=== PATIENT | male | born 1945 | race Caucasian/White ===

== ENCOUNTER 2023-11-28 21:21 | Observation (INO) | payer MEDICARE, BC, SELFPAY ==
[2023-11-28 21:22] VITALS: BP 130/73; PULSE 84; RESP 18; TEMP 36.7; O2SAT 97; BMI 32.4
--- NOTE | 2023-11-28 21:42 | CT_ITS ---
PROCEDURE INFORMATION: Exam: CT Abdomen And Pelvis With Contrast Exam date and time: 11/28/2023 10:33 PM Age: 78 years old Clinical indication: Abdominal pain; Additional info: Cystectomy, ruq/epigastrci abdominal pain TECHNIQUE: Imaging protocol: Computed tomography of the abdomen and pelvis with contrast. Radiation optimization: All CT scans at this facility use at least one of these dose optimization techniques: automated exposure control; mA and/or kV adjustment per patient size (includes targeted exams where dose is matched to clinical indication); or iterative reconstruction. Contrast material: ISOVUE; Contrast volume: 75 ml; Contrast route: IV; COMPARISON: No relevant prior studies available. FINDINGS: Liver: Mild fatty liver infiltration. Gallbladder and bile ducts: Multiple gallstones. Pancreas: Normal. No ductal dilation. Spleen: Normal. No splenomegaly. Adrenal glands: Normal. No mass. Kidneys and ureters: Loops bilateral nonobstructive renal calculi measuring up to 0.4 cm in left kidney. Bilateral renal cysts. Stomach and bowel: Sigmoid colonic diverticula without pericolonic fat stranding. Appendix: No evidence of appendicitis. Intraperitoneal space: Unremarkable. No free air. No significant fluid collection. Vasculature: Unremarkable. No abdominal aortic aneurysm. Lymph nodes: Unremarkable. No enlarged lymph nodes. Urinary bladder: Status post cystectomy with ileal conduit and right lower quadrant ostomy. Physiologic type bilateral hydroureter consistent with surgery. Reproductive: Unremarkable as visualized. Bones/joints: Unremarkable. No acute fracture. Soft tissues: Unremarkable. IMPRESSION: 1. Postsurgical changes status post cystectomy with ileal conduit. 2. Nonobstructive renal calculi. 3. Cholelithiasis. 4. Fatty liver infiltration. 5. Colonic diverticulosis. COMMENTS: Consistent with the [employer]'s Incidental Findings Committee white paper (J Am Charlene Radiol 2018): Any incidental renal lesion less than 1 cm or classified as too small to characterize, or any incidental cystic renal lesion characterized as simple-appearing, is likely benign. No follow-up imaging is recommended for these lesions per consensus recommendations based on imaging criteria.
[2023-11-28 21:46] LABS: Basophils % 0.1 % (0.1-2.0); Eosinophils # 0.1 K/mm3 (0.0-0.4); Eosinophils % 0.3 % (0.1-12.0); Hematocrit 36.4 % (42.0-52.0); Hemoglobin 13.1 g/dL (14.1-18.0); Lymphocytes # 0.8 K/mm3 (0.7-4.5); Lymphocytes % 3.2 % (10-50); Mean Corpuscular Hemoglobin 27.3 pg (27.0-31.2); Mean Corpuscular Volume 75.6 fl (80-94); Mean Platelet Volume 8.5 fl (7.4-10.4); Monocytes % 4.4 % (1.7-9.3); Neutrophils # 21.2 K/mm3 (1.8-7.8); Platelet Count 387 K/mm3 (142-424); Red Blood Count 4.81 M/mm3 (4.60-6.20); Red Cell Distribution Width 15.9 % (11.5-17.5); White Blood Count 23.1 K/mm3 (4.8-10.8)
[2023-11-28 21:48] LABS: MANUAL DIFFERENTIAL MANUAL DIFFERENTIAL (MANUAL DIFF)
[2023-11-28 21:54] LABS: Alanine Aminotransferase 40 U/L (12-78); Albumin/Globulin Ratio 1.3 (1.1-1.8); Alkaline Phosphatase 156 U/L (38-126); Anion Gap 19.2 mEq/L (5-15); Aspartate Amino Transferase 29 U/L (17-59); Bilirubin,Total 1.8 mg/dl (0.2-1.3); Blood Urea Nitrogen 31 mg/dl (9-20); Calcium 9.1 mg/dl (8.4-10.2); Carbon Dioxide 14 mmol/L (22.0-30.0); Chloride 107 mmol/L (98-107); Creatinine Clearance Estimated 44 mL/min (50-200); Estimated Glomerular Filt Rate 29 ml/min (>60); GFR (African American) 35 ML/MIN (>60); Globulin 3.1 g/dL (1.3-3.2); Glucose 173 mg/dl (74-100); Potassium 5.2 mmoL/L (3.5-5.1); Sodium 135 mmol/L (136-145); Total Protein,Serum 7.1 g/dl (6.3-8.2)
[2023-11-28 21:58] LABS: Hypochromasia 1+; Lymphocytes % 3 % (10-50); Microcytosis 1+; Monocytes % 4 % (2-9); Neutrophils % 93 % (42-76); Platelet Estimate Normal; Total Cells Counted 100
--- NOTE | 2023-11-28 22:07 | HMH.EDGENADL ---
Discharge Plan Disposition Patient Disposition: Admitted Referrals Follow up/Referrals: Marquita Gutierrez APRN [Primary Care Provider] - See instructions Clinical Impressions Clinical Impression: Abdominal pain Qualifiers: Abdominal location: generalized Qualified Code(s): R10.84 - Generalized abdominal pain Instructions Patient Instructions: DI for Acute Abdominal Pain Discharge ED Provider: Chirag Galan General Adult HPI <Chirag Galan MD - Last Filed: 11/28/23 23:34> General Chief complaint: Abdominal Pain Stated complaint: bladder surgery 05/28 back and abd pain Time Seen by Provider: 11/28/23 21:23 Mode of Arrival: Wheelchair Source of Information: Patient and Spouse Limitations: No Limitations Description of Symptoms (Recalled from ER Triage Doc. by RN): Pt presents with left lower abdominal pain that radiates into his lower back which started yesterday. Pt has hx of urostomy, has had adequate output. States he has hx of kidney stones and has episodes of diarrhea/constipation. History of Present Illness HPI narrative: Patient is 78 years old has a recent history of a cystectomy status post urostomy placement presenting with abdominal pain. Patient states that he has been feeling unwell for the past few days, but really started having right upper quadrant pain yesterday that radiates downward into his pelvis and backward into his back. Denies fevers or chills, nausea or vomiting, persistent diarrhea or constipation. Last bowel movement was yesterday and was mostly liquid, but patient is passing gas. Related Data Allergies Allergy/AdvReac Type Severity Reaction Status Date / Time No Known Allergies Allergy Verified 11/28/23 22:20 PFSH <Chirag Galan MD - Last Filed: 11/28/23 23:34> [facility] Disclaimer: The information contained in this section may have been updated after the patient was seen, as this information can be updated by other users. Social History (Updated 11/28/23 @ 22:55 by Chriag Galan MD) Smoking Status: Former smoker alcohol intake: never current occupational status: unemployed and retired Travel in the last 8 weeks: None <Chirag Galan MD - Last Filed: 11/28/23 23:34> ROS Obtained: Yes All systems reviewed & no additional complaints except as documented Physical Exam <Chirag Galan MD - Last Filed: 01/23/24 23:34> General General appearance: alert and in no apparent distress Head Head exam: atraumatic and normocephalic Eye Eye exam: Present normal appearance, PERRL and EOMI ENT ENT exam: Present mucous membranes moist Neck Neck exam: Present normal inspection, full ROM and trachea midline Respiratory Respiratory exam: Present normal lung sounds bilaterally; Absent respiratory distress, wheezes, stridor, accessory muscle use or prolonged expiratory phase Cardiovascular Cardiovascular exam: Present regular rate and normal rhythm Abdominal Exam Abdominal exam: Present soft and tenderness; Absent distention, guarding, rebound or rigidity Abdominal tenderness: Present RUQ and epigastrium Comment: Urostomy in place on the right side of the abdomen. [place], well-appearing. Extremities Exam Extremities exam: Absent edema Neurological Exam Neurological exam: Present alert, oriented X3, CN II-XII intact and normal gait; Absent motor sensory deficit Skin Skin exam: Present warm and dry; Absent diaphoresis or erythema Medical Decision Making <Chirag Galan MD - Last Filed: 11/28/23 23:34> Medical Records Medical records reviewed: Yes I reviewed the patient's medical records. Andres Inquiry Pt receiving controlled substance: No Andres was queried for this patient: No Vital Signs: 11/28/23 21:22 Temperature 98.1 F Temperature Source Oral Pulse Rate [Left] 84 Respiratory Rate 18 Blood Pressure [Right Arm] 130/73 Blood Pressure Mean [Right Arm] 92 Blood Pressure Source [Right Arm] Automatic Cuff Blood Pressure Position [Right Arm] Sitting 02 Sat by Pulse Oximetry 97 Oxygen Delivery Method Room Air Lab Data Lab Results 11/28/23 21:35: WBC 23.1 H*, RBC 4.81, Hgb 13.1 L, Hct 36.4 L, MCV 75.6 L, MCH 27.3, MCHC 36.0 H, RDW 15.9, Plt Count 387, MPV 8.5, Neut % (Auto) 92.0 H, Lymph % (Auto) 3.2 L, [place] % (Auto) 4.4, Eos % (Auto) 0.3, Baso % (Auto) 0.1, Neut # (Auto) 21.2 H, Lymph # (Auto) 0.8, [place] # (Auto) 1.0, Eos # (Auto) 0.1, Baso # (Auto) 0.0, Total Counted 100, Neutrophils % (Manual) 93 H, Lymphocytes % (Manual) 3 L, Monocytes % (Manual) 4, Platelet Estimate Normal, Hypochromasia 1+, Microcytosis 1+, Sodium 135 L, Potassium 5.2 H, Chloride 107, Carbon Dioxide 14 L, Anion Gap 19.2 H, BUN 31 H, Creatinine 2.20 H, Estimated Creat Clear 44, Estimated GFR 29 L, Est GFR ( Amer) 35 L, Glucose 173 H, Lactate 2.4 H, Calcium 9.1, Total Bilirubin 1.8 H, AST 29, ALT 40, Alkaline Phosphatase 156 H, Total Protein 7.1, Albumin 4.0, Globulin 3.1, Albumin/Globulin Ratio 1.3, Lipase 85 11/28/23 21:35 11/28/23 21:35 Orders (Tests/Meds): ED MEDICATIONS Generic Name Dose Route Start Last Admin Trade Name Freq PRN Reason Stop Dose Admin Acetaminophen 650 mg 11/29/23 00:05 Acetaminophen 325mg Tab PO 12/29/23 00:04 Q4HP PRN Fever or Mild Pain (1-3) Al Hydrox/Mg Hydrox/Simethicone 30 ml 11/29/23 00:05 Aluminum/Magnesium/Simethicone 30ml Udc PO 12/29/23 00:04 QIDP PRN Dyspepsia Enoxaparin Sodium 40 mg 11/29/23 09:00 Enoxaparin 40mg/0.4ml Syringe SQ 12/29/23 08:59 DAILY [facility] Vancomycin HCl 2,250 mg/ 250 mls @ 125 mls/hr 11/28/23 22:45 11/28/23 23:22 Sodium Chloride IV 11/29/23 00:44 125 mls/hr ONCE ONE Administration Sodium Chloride 1,000 mls @ 100 mls/hr 11/29/23 00:15 Sod Chlor 0.9% 1000ml Bag IV 12/29/23 00:14 .Q10H OLU Ceftriaxone Sodium 1 gm/ 50 mls @ 100 mls/hr 11/29/23 00:15 Sodium Chloride IV 12/09/23 00:14 Q12H [facility] Insulin Human Lispro 0 unit 11/29/23 06:00 Humalog 100 Units/Ml 3ml Vial (Ssi) SQ 12/29/23 05:59 ACHS OLU Protocol Ketorolac Tromethamine 30 mg 11/29/23 00:05 Ketorolac 30mg/Ml Vial IV 12/04/23 00:04 Q6HP PRN Moderate Pain (4-6) Miscellaneous 1 each 11/28/23 22:30 Vancomycin Consult Request NOTAPPLIC 12/28/23 22:29 CONSULT PHARMACY [facility] Morphine Sulfate 2 mg 11/29/23 00:05 Morphine 2mg/Ml Syringe IV 12/29/23 00:04 Q2HP PRN Severe Pain (7-10) Ondansetron HCl 4 mg 11/29/23 00:05 Ondansetron 4mg/2ml Vial IV 12/29/23 00:04 Q8HP PRN Nausea Pantoprazole Sodium 40 mg 11/29/23 09:00 Pantoprazole 40mg Tablet PO 12/29/23 08:59 DAILY [facility] Sodium Chloride 10 ml 11/28/23 22:41 11/28/23 22:42 Sodium Chloride 0.9% 10ml Syr (Rad Only) IV 12/28/23 22:40 10 ml NEEDED PRN Administration Maintain IV Site Discontinued Medications Generic Name Dose Route Start Last Admin Trade Name Freq PRN Reason Stop Dose Admin Lactated Ringer's 1,000 mls @ 999 mls/hr 11/28/23 22:00 11/28/23 22:26 Lactated Ringer's 1000 Ml Bag IV 11/28/23 23:00 999 mls/hr .Q1H1M ONE Administration Ampicillin Sodium/Sulbactam 100 mls @ 200 mls/hr 11/28/23 22:10 11/28/23 22:57 Sodium 3 gm/ Sodium Chloride IV 11/28/23 22:11 200 mls/hr ONCE ONE Administration Lactated Ringer's 1,000 mls @ 999 mls/hr 11/28/23 22:13 Lactated Ringer's 1000 Ml Bag IV 11/28/23 23:13 .Q1H1M ONE Iopamidol 75 ml 11/28/23 22:41 11/28/23 22:42 Iopamidol-370 (76%);100ml Bottle IV 11/28/23 22:42 75 ml ONCE ONE Administration ORDERS Category Date Time Status CT abdomen pelvis w con Stat Cat Scan 11/28/23 21:42 Completed CBC w/Auto Diff [Complete Blood Count Auto Diff] Stat Lab 11/28/23 21:35 Completed CMP [Comprehensive Metabolic Panel] Stat Lab 11/28/23 21:35 Completed Complete Blood Count Auto Diff AMLAB Lab 11/29/23 06:00 Ordered Comprehensive Metabolic Panel AMLAB Lab 11/29/23 06:00 Ordered Lactic Acid Stat Lab 11/28/23 21:35 Completed Lipase Stat Lab 11/28/23 21:35 Completed Magnesium AMLAB Lab 11/29/23 06:00 Ordered Blood Culture Stat Micro 11/28/23 22:49 Received Medical Decision Narrative: Patient is 78 years old has a recent history of a cystectomy status post urostomy placement presenting with abdominal pain. Patient states that he has been feeling unwell for the past few days, but really started having right upper quadrant pain yesterday that radiates downward into his pelvis and backward into his back. Denies fevers or chills, nausea or vomiting, persistent diarrhea or constipation. Last bowel movement was yesterday and was mostly liquid, but patient is passing gas. History was obtained via conversation with patient and . On arrival, patient hemodynamically stable, alert, oriented x4, appropriate, GCS 15, moving all extremities spontaneously, pupils equal and reactive to light. Full physical exam performed and significant for well-appearing male no acute distress. Patient does have tender abdomen right upper quadrant, but no evidence of peritonitis. Urostomy in place with bag overlying. Urostomy appears pink, well matured. No flank tenderness. Differential includes pyelonephritis, small bowel obstruction, cholecystitis, appendicitis, intra-abdominal abscess, urostomy failure, anastomosis leak, among others. Patient was given lactated Ringer's, Unasyn for symptomatic management and correction of underlying abnormalities. Workup independently interpreted and significant for leukocytosis 23,000 with neutrophilic shift. CBC with mild hypokalemia 5.2, anion gap 19.2 with RUDI BUN 31 creatinine 2.2. Patient's lactate 2.4. Patient appears to have atrophic kidneys and bilateral utero hydronephrosis without stents in place. No evidence of perforation or bowel obstruction. See radiology read for full review of final results. Blood cultures drawn. GFR 29, he was given fluids prior to CT scan. CT scan with nonacute findings. Cholelithiasis without signs of cholecystitis, well-appearing urostomy. Hospital medicine contacted for admission, patient to be admitted. Patient may be having symptomatic cholelithiasis, which is resolved versus cholecystitis versus pyelonephritis. Because patient high risk for clinical decompensation, deemed appropriate for inpatient admission. Results were relayed to patient who voiced understanding and patient was agreeable to inpatient admission and management. Patient was admitted to the hospital for further definitive management. <Grover Terry MD - Last Filed: 11/29/23 00:23> Vital Signs: 11/28/23 21:22 Temperature 98.1 F Temperature Source Oral Pulse Rate [Left] 84 Respiratory Rate 18 Blood Pressure [Right Arm] 130/73 Blood Pressure Mean [Right Arm] 92 Blood Pressure Source [Right Arm] Automatic Cuff Blood Pressure Position [Right Arm] Sitting 02 Sat by Pulse Oximetry 97 Oxygen Delivery Method Room Air Lab Data Lab Results 11/28/23 21:35: WBC 23.1 H*, RBC 4.81, Hgb 13.1 L, Hct 36.4 L, MCV 75.6 L, MCH 27.3, MCHC 36.0 H, RDW 15.9, Plt Count 387, MPV 8.5, Neut % (Auto) 92.0 H, Lymph % (Auto) 3.2 L, [place] % (Auto) 4.4, Eos % (Auto) 0.3, Baso % (Auto) 0.1, Neut # (Auto) 21.2 H, Lymph # (Auto) 0.8, [place] # (Auto) 1.0, Eos # (Auto) 0.1, Baso # (Auto) 0.0, Total Counted 100, Neutrophils % (Manual) 93 H, Lymphocytes % (Manual) 3 L, Monocytes % (Manual) 4, Platelet Estimate Normal, Hypochromasia 1+, Microcytosis 1+, Sodium 135 L, Potassium 5.2 H, Chloride 107, Carbon Dioxide 14 L, Anion Gap 19.2 H, BUN 31 H, Creatinine 2.20 H, Estimated Creat Clear 44, Estimated GFR 29 L, Est GFR ( Amer) 35 L, Glucose 173 H, Lactate 2.4 H, Calcium 9.1, Total Bilirubin 1.8 H, AST 29, ALT 40, Alkaline Phosphatase 156 H, Total Protein 7.1, Albumin 4.0, Globulin 3.1, Albumin/Globulin Ratio 1.3, Lipase 85 Orders (Tests/Meds): ED MEDICATIONS Generic Name Dose Route Start Last Admin Trade Name Freq PRN Reason Stop Dose Admin Acetaminophen 650 mg 11/29/23 00:05 Acetaminophen 325mg Tab PO 12/29/23 00:04 Q4HP PRN Fever or Mild Pain (1-3) Al Hydrox/Mg Hydrox/Simethicone 30 ml 11/29/23 00:05 Aluminum/Magnesium/Simethicone 30ml Udc PO 12/29/23 00:04 QIDP PRN Dyspepsia Enoxaparin Sodium 40 mg 11/29/23 09:00 Enoxaparin 40mg/0.4ml Syringe SQ 12/29/23 08:59 DAILY [facility] Vancomycin HCl 2,250 mg/ 250 mls @ 125 mls/hr 11/28/23 22:45 11/28/23 23:22 Sodium Chloride IV 11/29/23 00:44 125 mls/hr ONCE ONE Administration Sodium Chloride 1,000 mls @ 100 mls/hr 11/29/23 00:15 Sod Chlor 0.9% 1000ml Bag IV 12/29/23 00:14 .Q10H [facility] Ceftriaxone Sodium 1 gm/ 50 mls @ 100 mls/hr 11/29/23 00:15 Sodium Chloride IV 12/09/23 00:14 Q12H [facility] Insulin Human Lispro 0 unit 11/29/23 06:00 Humalog 100 Units/Ml 3ml Vial (Ssi) SQ 12/29/23 05:59 ACHS [facility] Protocol Ketorolac Tromethamine 30 mg 11/29/23 00:05 Ketorolac 30mg/Ml Vial IV 12/04/23 00:04 Q6HP PRN Moderate Pain (4-6) Miscellaneous 1 each 11/28/23 22:30 Vancomycin Consult Request NOTAPPLIC 12/28/23 22:29 CONSULT PHARMACY [facility] Morphine Sulfate 2 mg 11/29/23 00:05 Morphine 2mg/Ml Syringe IV 12/29/23 00:04 Q2HP PRN Severe Pain (7-10) Ondansetron HCl 4 mg 11/29/23 00:05 Ondansetron 4mg/2ml Vial IV 12/29/23 00:04 Q8HP PRN Nausea Pantoprazole Sodium 40 mg 11/29/23 09:00 Pantoprazole 40mg Tablet PO 12/29/23 08:59 DAILY [facility] Sodium Chloride 10 ml 11/28/23 22:41 11/28/23 22:42 Sodium Chloride 0.9% 10ml Syr (Rad Only) IV 12/28/23 22:40 10 ml NEEDED PRN Administration Maintain IV Site Discontinued Medications Generic Name Dose Route Start Last Admin Trade Name Juaquin PRN Reason Stop Dose Admin Lactated Ringer's 1,000 mls @ 999 mls/hr 11/28/23 22:00 11/28/23 22:26 Lactated Ringer's 1000 Ml Bag IV 11/28/23 23:00 999 mls/hr .Q1H1M ONE Administration Ampicillin Sodium/Sulbactam 100 mls @ 200 mls/hr 11/28/23 22:10 11/28/23 22:57 Sodium 3 gm/ Sodium Chloride IV 11/28/23 22:11 200 mls/hr ONCE ONE Administration Lactated Ringer's 1,000 mls @ 999 mls/hr 11/28/23 22:13 Lactated Ringer's 1000 Ml Bag IV 11/28/23 23:13 .Q1H1M ONE Iopamidol 75 ml 11/28/23 22:41 11/28/23 22:42 Iopamidol-370 (76%);100ml Bottle IV 11/28/23 22:42 75 ml ONCE ONE Administration ORDERS Category Date Time Status CT abdomen pelvis w con Stat Cat Scan 11/28/23 21:42 Completed CBC w/Auto Diff [Complete Blood Count Auto Diff] Stat Lab 11/28/23 21:35 Completed CMP [Comprehensive Metabolic Panel] Stat Lab 11/28/23 21:35 Completed Complete Blood Count Auto Diff AMLAB Lab 11/29/23 06:00 Ordered Comprehensive Metabolic Panel AMLAB Lab 11/29/23 06:00 Ordered Lactic Acid Stat Lab 11/28/23 21:35 Completed Lipase Stat Lab 11/28/23 21:35 Completed Magnesium AMLAB Lab 11/29/23 06:00 Ordered Blood Culture Stat Micro 11/28/23 22:49 Received Medical Decision Narrative: Patient is 78 years old has a recent history of a cystectomy status post urostomy placement presenting with abdominal pain. Patient states that he has been feeling unwell for the past few days, but really started having right upper quadrant pain yesterday that radiates downward into his pelvis and backward into his back. Denies fevers or chills, nausea or vomiting, persistent diarrhea or constipation. Last bowel movement was yesterday and was mostly liquid, but patient is passing gas. History was obtained via conversation with patient and . On arrival, patient hemodynamically stable, alert, oriented x4, appropriate, GCS 15, moving all extremities spontaneously, pupils equal and reactive to light. Full physical exam performed and significant for well-appearing male no acute distress. Patient does have tender abdomen right upper quadrant, but no evidence of peritonitis. Urostomy in place with bag overlying. Urostomy appears pink, well matured. No flank tenderness. Differential includes pyelonephritis, small bowel obstruction, cholecystitis, appendicitis, intra-abdominal abscess, urostomy failure, anastomosis leak, among others. Patient was given lactated Ringer's, Unasyn for symptomatic management and correction of underlying abnormalities. Workup independently interpreted and significant for leukocytosis 23,000 with neutrophilic shift. CBC with mild hypokalemia 5.2, anion gap 19.2 with RUDI BUN 31 creatinine 2.2. Patient's lactate 2.4. Patient appears to have atrophic kidneys and bilateral utero hydronephrosis without stents in place. No evidence of perforation or bowel obstruction. See radiology read for full review of final results. Blood cultures drawn. GFR 29, he was given fluids prior to CT scan. CT scan with nonacute findings. Cholelithiasis without signs of cholecystitis, well-appearing urostomy. Hospital medicine contacted for admission, patient to be admitted. Patient may be having symptomatic cholelithiasis, which is resolved versus cholecystitis versus pyelonephritis. Because patient high risk for clinical decompensation, deemed appropriate for inpatient admission. Results were relayed to patient who voiced understanding and patient was agreeable to inpatient admission and management. Patient was admitted to the hospital for further definitive management. Mara VENTURA: I assumed care of the patient at the time of handoff from the prior provider. Patient admitted to the hospitalist by primary provider. I was not significantly involved in the patient's care. Critical Care <Chirag Galan MD - Last Filed: 11/28/23 23:34> Critical Care Time Critical Care Time: No
[2023-11-28 22:08] LABS: Lactic Acid 2.4 mmol/L (0.7-2.1)
[2023-11-28 22:17] LABS: Lipase 85 U/L (23-300)
[2023-11-28] MEDS: LACTATED RINGERS 1000ML 1,000 ML 999 ML IV (22:26)
[2023-11-28] MEDS: IOPAMIDOL-370 (76%);100ML BOTTLE 75 ML IV (22:42)
[2023-11-28] MEDS: SODIUM CHLORIDE 0.9% 10ML SYR (RAD ONLY) 10 ML IV (22:42)
[2023-11-28] MEDS: AMPICILLIN/SULBACTAM 3 GM in 0.9 % SODIUM CHLORIDE 100 ML IV (22:57)
[2023-11-28] MEDS: VANCOMYCIN HCL 2,250 MG in 0.9 % SODIUM CHLORIDE 250 ML 125 MG IV (23:22)
[2023-11-29] VITALS (7 sets, daily range): BP systolic 100–136; BP diastolic 51–79; PULSE 64–88; RESP 16–18; TEMP 36.4–36.7; O2SAT 96–99; BMI 31.8
--- NOTE | 2023-11-29 00:07 | EXP.HP ---
History of Present Illness *Admission Date: 11/29/23 *Reason for visit:: abd pain *History of present illness: This is a 78 years old male with PMHx including but not limited to IDDM, Gout, HLD, GERD with recent history bladder cancer status post cystectomy with urostomy placement presenting with abdominal pain. Patient states that he has been feeling unwell for the past few days, but really started having right upper quadrant pain yesterday that radiates downward into his pelvis and backward into his back. History also confirmed with family at beside. Of note, patient also reported recent hospitalization due to history of yeast pyelonephritis with sepsis back on . Currently denies fevers or chills, nausea or vomiting, persistent diarrhea or constipation. Last bowel movement was yesterday and was mostly liquid, but patient is passing gas. Admitted for further treatment and management. [facility] Disclaimer: The information contained in this section may have been updated after the patient was seen, as this information can be updated by other users. Medical History (Updated 11/29/23 @ 02:21 by Keshia Poe RN) Bladder cancer Dementia Diabetes mellitus type 2, controlled Skin cancer Surgical History (Updated 11/29/23 @ 02:21 by Keshia Poe RN) History of urostomy Family History (Updated 11/29/23 @ 02:21 by Keshia Poe RN) Dementia Mother Father Social History (Updated 11/29/23 @ 01:50 by Keshia Poe RN) Smoking Status: Former smoker tobacco type: cigarettes packs per day: 1 years smoked: 30 smoking status stop date: 30 years ago alcohol intake: never current occupational status: unemployed and retired Travel in the last 8 weeks: None Review of Systems Review of Systems Review of systems:: pertinent systems reviewed and negative unless documented below Meds Home Medications and Allergies Home Medications Medication Instructions Recorded Confirmed Type allopurinol 100 mg tablet 100 mg PO DAILY 11/29/23 11/29/23 History atorvastatin 20 mg tablet 20 mg PO HS 11/29/23 11/29/23 History linaclotide 290 mcg capsule 290 mcg PO AM 11/29/23 11/29/23 History (Linzess) metformin 500 mg tablet 500 mg PO BIDWMEAL 11/29/23 11/29/23 History metoprolol succinate 50 mg 50 mg PO DAILY 11/29/23 11/29/23 History tablet,extended release 24 hr quetiapine 50 mg tablet 50 mg PO HS 11/29/23 11/29/23 History New Prescriptions to Start Prescriptions: Allergies Allergy/AdvReac Type Severity Reaction Status Date / Time No Known Allergies Allergy Verified 11/28/23 22:20 Exam Data for Last 24 hours Vital signs and Labs for Last 24 Hours: Temp Pulse Resp BP Pulse Ox O2 Del Method 98.1 F 84 18 130/73 97 Room Air 11/28/23 21:22 11/28/23 21:22 11/28/23 21:22 11/28/23 21:22 11/28/23 21:22 11/28/23 21:22 Laboratory Results - last 24 hr 11/28/23 21:35: WBC 23.1 H*, RBC 4.81, Hgb 13.1 L, Hct 36.4 L, MCV 75.6 L, MCH 27.3, MCHC 36.0 H, RDW 15.9, Plt Count 387, MPV 8.5, Neut % (Auto) 92.0 H, Lymph % (Auto) 3.2 L, [place] % (Auto) 4.4, Eos % (Auto) 0.3, Baso % (Auto) 0.1, Neut # (Auto) 21.2 H, Lymph # (Auto) 0.8, [place] # (Auto) 1.0, Eos # (Auto) 0.1, Baso # (Auto) 0.0, Total Counted 100, Neutrophils % (Manual) 93 H, Lymphocytes % (Manual) 3 L, Monocytes % (Manual) 4, Platelet Estimate Normal, Hypochromasia 1+, Microcytosis 1+, Sodium 135 L, Potassium 5.2 H, Chloride 107, Carbon Dioxide 14 L, Anion Gap 19.2 H, BUN 31 H, Creatinine 2.20 H, Estimated Creat Clear 44, Estimated GFR 29 L, Est GFR ( Amer) 35 L, Glucose 173 H, Lactate 2.4 H, Calcium 9.1, Total Bilirubin 1.8 H, AST 29, ALT 40, Alkaline Phosphatase 156 H, Total Protein 7.1, Albumin 4.0, Globulin 3.1, Albumin/Globulin Ratio 1.3, Lipase 85 I & O for Last 24 hours: Intake & Output 11/26/23 11/27/23 11/28/23 11/29/23 23:59 23:59 23:59 23:59 Weight 108.409 kg Constitutional Constitutional: no acute distress, obese and cooperative *Routine HEENT Exam Head: Present normocephalic and atraumatic Eye: Present EOMI, PERRL and normal accommodation ENT: Present mucous membranes moist *Routine Neck Exam Neck: Present supple, full ROM and trachea midline *Routine Respiratory Exam Respiratory: Present normal respiratory effort, able to speak in complete sentences and symmetric chest movement; Absent respiratory distress *Routine Cardiovascular Exam Cardiovascular: Present RRR, Normal S1 and Normal S2 *Routine Abdominal Exam Abdominal: Present soft, normoactive bowel sounds and ostomy; Absent organomegaly *Routine Rectal Exam Rectal:: deferred *Routine Genitalia Exam Genitalia:: deferred *Routine Extremities Exam Extremities: Present full ROM and pulses intact; Absent cyanosis, clubbing or edema *Routine Skin Exam Skin: Present dry and warm; Absent cyanosis *Routine Neurological Exam Neurological: Present alert, oriented X3, normal reflexes, moving all extremities and normal speech Routine Psychiatric Exam Psychiatric: Present normal thought process, cooperative and good judgment H&P: Result Imaging and Cardiology EKG: Status: image reviewed by me and Preliminary report CT scan - abdomen: Status: image reviewed by me, Preliminary report and final report Assessment and Plan *Assessment and plan (1) Abdominal pain: Status: Acute Qualifiers: Abdominal location: generalized Qualified Code(s): R10.84 - Generalized abdominal pain Category: Medical Code(s): R10.9 - Unspecified abdominal pain (2) Renal calculi: Status: Acute Category: Medical Code(s): N20.0 - Calculus of kidney (3) Suspected UTI: Status: Acute Category: Medical Code(s): R39.89 - Other symptoms and signs involving the genitourinary system (4) Hydronephrosis: Status: Acute Qualifiers: Hydronephrosis type: unspecified Qualified Code(s): N13.30 - Unspecified hydronephrosis Category: Medical Code(s): N13.30 - Unspecified hydronephrosis (5) CKD (chronic kidney disease): Status: Acute Qualifiers: Chronic kidney disease stage: unspecified stage Qualified Code(s): N18.9 - Chronic kidney disease, unspecified Category: Medical Code(s): N18.9 - Chronic kidney disease, unspecified (6) Cholelithiasis: Status: Acute Qualifiers: Biliary obstruction: without biliary obstruction Cholecystitis presence: without cholecystitis Cholelithiasis location: gallbladder Qualified Code(s): K80.20 - Calculus of gallbladder without cholecystitis without obstruction Category: Medical Code(s): K80.20 - Calculus of gallbladder without cholecystitis without obstruction (7) Diverticulosis: Status: Acute Category: Medical Code(s): K57.90 - Diverticulosis of intestine, part unspecified, without perforation or abscess without bleeding (8) Diabetes: Status: Acute Qualifiers: Diabetes mellitus complication status: with other specified complication Diabetes mellitus nursing home insulin use: with nursing home use Diabetes mellitus type: type 2 Qualified Code(s): E11.69 - Type 2 diabetes mellitus with other specified complication; Z79.4 - alf (current) use of insulin Category: Medical Code(s): E11.9 - Type 2 diabetes mellitus without complications (9) Hx of bladder cancer: Status: Acute Category: Medical Code(s): Z85.51 - Personal history of malignant neoplasm of bladder (10) H/O total cystectomy: Status: Acute Category: Surgical Code(s): Z90.6 - Acquired absence of other parts of urinary tract Plan 78 years old male with PMHx including but not limited to IDDM, Gout, HLD, GERD with recent history bladder cancer status post cystectomy with urostomy placement presenting with abdominal pain. Patient states that he has been feeling unwell for the past few days. On arrival patient presented non toxic, aymptomatic. Initial work up was significant for leukocytosis 23,000 with neutrophilic shift, mild hypokalemia 5.2, anion gap 19.2 with RUDI BUN 31 creatinine 2.2. Patient's lactate 2.4. Patient appears to have bilateral hydronephrosis. non obstructing stone. No evidence of perforation or bowel obstruction. Gallstone without obstruction. diffuse signs of diverticulosis without diverticulitis. Blood cultures drawn. Findings extensively discussed with ER provider for admission. Plan as follow: -Abdominal pain presented with mild leukocytosis and lactic acidosis: to rule out Pyelonephritis in the setting of renal calculi without obstruction Previous HX of yeast pyelonephritis with sepsis. Also: cholelithiasis without obstrution diverticulosis with out diverticulitis Admit patient for medical services. Dispo MedSurg Vanco one dose given at ER. Will continue to Zoxyn to broad cover BC pending UA ordered. Change urostomy bag Cont IV NS \ Repeat CBC and CMP in the morning. Monitor for WBC and Cr monitor for sepsis and organ failure CT of abd done. Reviewed. pain management. Ketorolac given at ER. Improved CKD: Previous Hx of hydronephrosis Creatinine 2.6. Unknown baseline. repeat CMP in the morning monitor renal output -IDDM: monitor BS before meal. Hold metformin Sliding scale -Hx of bladder cancer s/p cystectomy with ileal conduit. changes and palce ne urostomy bag. ostomy clean low concern of local infection may f/u outpatient urology Lovenox for DVT ppx. On Protonix Full code Rounded on patient after nurse practitioner. Personally examined and interviewed patient. Agree with exam findings and care plan as documented. White cell count improved to 12,000 by morning. Continuing antibiotics. Urine culture obtained. Will monitor for the next 24 to 48 hours while we await cultures to help de-escalate antibiotics. Transition from vancomycin and Zosyn to vancomycin and cefepime to decrease risk for kidney injury. Records obtained from [facility], cystectomy was performed in April of last year.
--- NOTE | 2023-11-29 00:19 | PC.NURSE ---
I called the banquet houseperson, SRodney RN, to request a bed for admission to the hospitalist.
--- OUTSIDE RECORDS SUMMARY | 2023-11-29 00:25 | XMS_ITS | Clinical Summary ---
Author Name Unknown Address [address] [place] [address] [employer] [address] [place] [id number] Phone Organization [facility] Address [address] [place] [address] [place] [id number] Phone Care Team Providers Care Record Keeper Name Role Phone Unavailable Unavailable Conditions or Problems No information available. Medications No information available. Medications Administered No information available. Allergies, Adverse Reactions, Alerts No information available. Results No information available. Plan of Care No information available. Procedures No information available. Vital Signs No information available. Immunizations No information available. Advance Directives No information available.
[2023-11-29] MEDS: LACTATED RINGERS 1000ML 1,000 ML 999 ML IV (01:38)
[2023-11-29 01:57] LABS: Reflex Lactic Add Lactic Reflex
[2023-11-29] MEDS: KETOROLAC 30MG/ML VIAL 30 MG IV (01:58)
--- NOTE | 2023-11-29 02:22 | PC.NURSE ---
Pt currently has 1 IV. Vancomycin finished at this time. Pt now receiving 2nd LR bolus. Zosyn past due. Pt is refusing to be stuck for 2nd IV. Neil West APRN made aware.
[2023-11-29] MEDS: PIPERACILLIN/TAZO 4.5 GM in 0.9 % SODIUM CHLORIDE 100 ML IV ×2 (03:18→09:04)
[2023-11-29] MEDS: 0.9 % SODIUM CHLORIDE 1000ML 1,000 ML 100 ML IV (03:18)
--- NOTE | 2023-11-29 03:23 | PC.NURSE ---
pt arrived to the floor at 01:26
[2023-11-29 06:36] LABS: POC Glucose,Bedside 139 (70-110)
[2023-11-29 07:45] LABS: Alanine Aminotransferase 29 U/L (12-78); Albumin Level 2.8 g/dl (3.5-5.0); Alkaline Phosphatase 109 U/L (38-126); Anion Gap 13.8 mEq/L (5-15); Aspartate Amino Transferase 20 U/L (17-59); Bilirubin,Total 1.1 mg/dl (0.2-1.3); Blood Urea Nitrogen 34 mg/dl (9-20); Carbon Dioxide 19 mmol/L (22.0-30.0); Chloride 107 mmol/L (98-107); Creatinine Clearance Estimated 41 mL/min (50-200); Estimated Glomerular Filt Rate 28 ml/min (>60); GFR (African American) 34 ML/MIN (>60); Globulin 2.8 g/dL (1.3-3.2); Glucose 130 mg/dl (74-100); Potassium 4.8 mmoL/L (3.5-5.1); Sodium 135 mmol/L (136-145); Total Protein,Serum 5.6 g/dl (6.3-8.2)
--- NOTE | 2023-11-29 08:01 | HMH.PHAINT1 ---
Pharmacy Intervention Comments: Home med list verified with patient at bedside and with external pharmacy list.
[2023-11-29 08:37] LABS: Eosinophils % 0.2 % (0.1-12.0); Monocytes # 0.6 K/mm3 (0.1-1.0); Red Cell Distribution Width 15.9 % (11.5-17.5)
[2023-11-29 08:41] LABS: Basophils % 0.2 % (0.1-2.0); Hematocrit 32.6 % (42.0-52.0); Lymphocytes # 0.9 K/mm3 (0.7-4.5); Lymphocytes % 6.9 % (10-50); Mean Corpuscular HGB Conc 34.8 g/dL (31.8-35.4); Mean Corpuscular Hemoglobin 26.2 pg (27.0-31.2); Mean Corpuscular Volume 75.3 fl (80-94); Mean Platelet Volume 8.6 fl (7.4-10.4); Monocytes % 4.5 % (1.7-9.3); Neutrophils % 88.2 % (37.0-80.0); Platelet Count 259 K/mm3 (142-424); Red Blood Count 4.33 M/mm3 (4.60-6.20); White Blood Count 12.4 K/mm3 (4.8-10.8)
[2023-11-29 08:43] LABS: Hemoglobin 11.3 g/dL (14.1-18.0)
[2023-11-29 08:44] LABS: MANUAL DIFFERENTIAL MANUAL DIFFERENTIAL (MANUAL DIFF)
--- NOTE | 2023-11-29 08:53 | PC.WOUNDNOTE ---
Patient sleeping soundly. 1:1 patient safety sitter at bedside. Will hold meds until patient is awake
[2023-11-29] MEDS: SENNOSIDES 8.6MG/DOCUSATE 50MG TABLET 1 TAB PO ×2 (09:03→21:05)
[2023-11-29] MEDS: PANTOPRAZOLE 40MG TABLET 40 MG PO (09:03)
[2023-11-29] MEDS: ENOXAPARIN 40MG/0.4ML SYRINGE 40 MG SQ (09:03)
[2023-11-29 09:55] LABS: Lymphocytes % 5 % (10-50); Monocytes % 9 % (2-9); Neutrophils % 76 % (42-76); Total Cells Counted 100
[2023-11-29 10:06] LABS: Platelet Estimate Normal
[2023-11-29 10:07] LABS: Anisocytosis 1+; Hypochromasia 1+; Poikilocytosis 1+
--- NOTE | 2023-11-29 10:30 | EXP.PHA.CONS ---
Pharmacy Consult Date: 11/29/23 Time: 10:30 Referring provider: DR. MALAVE Reason for Consult:: VANCOMYCIN DOSING CONSULT Allergies Allergy/AdvReac Type Severity Reaction Status Date / Time No Known Allergies Allergy Verified 11/28/23 22:20 Home Medications Medication Instructions Recorded Confirmed Type allopurinol 100 mg tablet 100 mg PO DAILY 11/29/23 11/29/23 History atorvastatin 20 mg tablet 20 mg PO HS 11/29/23 11/29/23 History linaclotide 290 mcg capsule 290 mcg PO AM 11/29/23 11/29/23 History (Linzess) metformin 500 mg tablet 500 mg PO BIDWMEAL 11/29/23 11/29/23 History metoprolol succinate 50 mg 50 mg PO DAILY 11/29/23 11/29/23 History tablet,extended release 24 hr quetiapine 50 mg tablet 50 mg PO HS 11/29/23 11/29/23 History New Prescriptions to Start Prescriptions: Height: 1.83 m Weight: 106.866 kg Laboratory Results:: Laboratory Results - last 24 hr 11/28/23 21:35: WBC 23.1 H*, RBC 4.81, Hgb 13.1 L, Hct 36.4 L, MCV 75.6 L, MCH 27.3, MCHC 36.0 H, RDW 15.9, Plt Count 387, MPV 8.5, Neut % (Auto) 92.0 H, Lymph % (Auto) 3.2 L, [place] % (Auto) 4.4, Eos % (Auto) 0.3, Baso % (Auto) 0.1, Neut # (Auto) 21.2 H, Lymph # (Auto) 0.8, [place] # (Auto) 1.0, Eos # (Auto) 0.1, Baso # (Auto) 0.0, Total Counted 100, Neutrophils % (Manual) 93 H, Lymphocytes % (Manual) 3 L, Monocytes % (Manual) 4, Platelet Estimate Normal, Hypochromasia 1+, Microcytosis 1+, Sodium 135 L, Potassium 5.2 H, Chloride 107, Carbon Dioxide 14 L, Anion Gap 19.2 H, BUN 31 H, Creatinine 2.20 H, Estimated Creat Clear 44, Estimated GFR 29 L, Est GFR ( Amer) 35 L, Glucose 173 H, Lactate 2.4 H, Calcium 9.1, Total Bilirubin 1.8 H, AST 29, ALT 40, Alkaline Phosphatase 156 H, Total Protein 7.1, Albumin 4.0, Globulin 3.1, Albumin/Globulin Ratio 1.3, Lipase 85 11/29/23 06:26: WBC 12.4 H D, RBC 4.33 L, Hgb 11.3 L D, Hct 32.6 L, MCV 75.3 L, MCH 26.2 L, MCHC 34.8, RDW 15.9, Plt Count 259 D, MPV 8.6, Neut % (Auto) 88.2 H, Lymph % (Auto) 6.9 L, [place] % (Auto) 4.5, Eos % (Auto) 0.2, Baso % (Auto) 0.2, Neut # (Auto) 11.0 H, Lymph # (Auto) 0.9, [place] # (Auto) 0.6, Eos # (Auto) 0.0, Baso # (Auto) 0.0, Sodium 135 L, Potassium 4.8, Chloride 107, Carbon Dioxide 19 L, Anion Gap 13.8, BUN 34 H, Creatinine 2.30 H, Estimated Creat Clear 41, Estimated GFR 28 L, Est GFR ( Amer) 34 L, Glucose 130 H D, Calcium 8.0 L, Magnesium 2.0, Total Bilirubin 1.1, AST 20 D, ALT 29 D, Alkaline Phosphatase 109, Total Protein 5.6 L, Albumin 2.8 L D, Globulin 2.8, Albumin/Globulin Ratio 1.0 L 11/29/23 06:29: POC Glucose 139 H Medical History: Medical History (Updated 11/29/23 @ 02:21 by Keshia Poe RN) Bladder cancer Dementia Diabetes mellitus type 2, controlled Skin cancer Assessment and Plan Assessment and plan all Dx Assessment and Plan for all problems:: Pharmacokinetic dosing service Objective: Age: 78 yo Serum creatinine: 2.3 mg/dL Height: 72.0 Inches Weight (kg): 106.866 Diagnosis: SEPSIS Assessment: IBW (kg): 77.60 Dosing wt(kg): 106.866 Estimated Creatinine clearance (ml/min): 30.0 CRCL method: Cockcroft and Gault using ibw(default). Drug selected: Vancomycin Loading dose (mg): 2250 MG Vd (liters): 74.8 (factor used: 0.7 L/kg) [place] (hr-1): 0.029 Half life (hrs): 23.90 CLvanco=?? 2.169 L/hr Recommended dose: 1750 mg Interval: 36 hrs Infusion time (hrs): 2.0 Predicted peak (mcg/mL): 35.1 Predicted trough (mcg/mL): 13.09 Total body weight is being used for vancomycin dosing. Recommendations: Give Vancomycin 1750 mg q 36 hrs with an expected Cpeak of 35.1 mcg/ml and an expected Ctrough of 13.09 mcg/ml TO START 11/30/23 AT 1100, LOADING DOSE OF VANCOMYCIN 2250 MG GIVEN IN THE ED 11/28/23 AT 23:22. AUC 0-24 /MARY ELLEN Data: MARY ELLEN 0.5 mcg/mL:?? AUC/MARY ELLEN:? 1075.8 MARY ELLEN 1.0 mcg/mL:?? AUC/MARY ELLEN:? 537.9 --------- MARY ELLEN 1.5 mcg/mL:?? AUC/MARY ELLEN:? 358.6 MARY ELLEN 2.0 mcg/mL:?? AUC/MARY ELLEN:? 268.9 Thank you for the consult
[2023-11-29 10:52] LABS: Microcytosis 1+
--- NOTE | 2023-11-29 11:25 | PC.NURSE ---
Urostomy appliance removed and urine specimen obtained directly from patient's stoma. Area cleansed and new appliance applied that was supplied by patient's
[2023-11-29 11:45] LABS: Microscopic, Urine URINE MICROSCOPIC (MICROSCOPIC)
[2023-11-29] MEDS: humaLOG 100 UNITS/ML 3ML VIAL (SSI) SQ (11:47)
[2023-11-29 11:50] LABS: Appearance,Urine CLEAR (Clear); Bilirubin,Urine Negative (Negative); Blood, Urine 3+ (Negative); Color,Urine YELLOW (Yellow); Glucose,Urine (UA) Negative (Negative); Ketones,Urine Negative (Negative); Leukocyte Esterase,Urine 2+ (Negative); Nitrate,Urine Negative (Negative); Protein,Urine 1+ (Negative); Urobilinogen,Urine 0.2 EU/dl (0.2)
[2023-11-29 12:11] LABS: Squamous Epithelial Cell,Urine Occasional #/hpf (0-5)
[2023-11-29 12:12] LABS: Bacteria,Urine Trace /lpf
[2023-11-29] MEDS: ONDANSETRON 4MG/2ML VIAL 4 MG IV (14:58)
--- NOTE | 2023-11-29 15:36 | PC.NURSE ---
Pt alert but forgetful. Denies pain. Zofran x 1 for nausea. Minimal oral intake. Urine output via urostomy. On room air. VSS. Antibiotics administered per orders. at bedside throughout day.
[2023-11-29 20:24] LABS: POC Glucose,Bedside 111 (70-110)
[2023-11-29] MEDS: CEFEPIME HCL 2 GM in 0.9 % SODIUM CHLORIDE 100 ML IV (21:04)
[2023-11-30] VITALS: BP 130/69; PULSE 76; RESP 16; TEMP 36.6; O2SAT 94
[2023-11-30 04:00] VITALS: BP 107/73; PULSE 70; RESP 16; TEMP 36.7; O2SAT 95; BMI 32.9
--- NOTE | 2023-11-30 05:16 | PC.NURSE ---
Patient has had a decent night with some pleasant confusion occurring. Patient woke up a few times in the night unsure where he was or what was going on, patient was easily redirected. Adequate urine from urostomy is noted. remains at bedside. Patient has no acute changes this shift. [place], personal belongings and bedside table all with in reach. Bed alarm remains on and working.
[2023-11-30 06:11] LABS: POC Glucose,Bedside 92 (70-110)
[2023-11-30 07:56] LABS: Basophils % 0.2 % (0.1-2.0); Eosinophils # 0.1 K/mm3 (0.0-0.4); Eosinophils % 1.4 % (0.1-12.0); Hematocrit 31.3 % (42.0-52.0); Hemoglobin 10.2 g/dL (14.1-18.0); Lymphocytes # 0.9 K/mm3 (0.7-4.5); Lymphocytes % 10.2 % (10-50); Mean Corpuscular HGB Conc 32.7 g/dL (31.8-35.4); Mean Corpuscular Hemoglobin 24.9 pg (27.0-31.2); Mean Platelet Volume 8.7 fl (7.4-10.4); Monocytes # 0.5 K/mm3 (0.1-1.0); Monocytes % 5.4 % (1.7-9.3); Neutrophils # 7.1 K/mm3 (1.8-7.8); Neutrophils % 82.8 % (37.0-80.0); Platelet Count 232 K/mm3 (142-424); Red Blood Count 4.12 M/mm3 (4.60-6.20); Red Cell Distribution Width 15.7 % (11.5-17.5); White Blood Count 8.6 K/mm3 (4.8-10.8)
[2023-11-30 08:00] VITALS: BP 124/67; PULSE 70; RESP 18; TEMP 36.5; O2SAT 97
[2023-11-30 08:05] LABS: Alanine Aminotransferase 22 U/L (12-78); Albumin Level 2.9 g/dl (3.5-5.0); Albumin/Globulin Ratio 1.1 (1.1-1.8); Alkaline Phosphatase 98 U/L (38-126); Anion Gap 11.5 mEq/L (5-15); Aspartate Amino Transferase 22 U/L (17-59); Bilirubin,Total 0.9 mg/dl (0.2-1.3); Blood Urea Nitrogen 37 mg/dl (9-20); Carbon Dioxide 19 mmol/L (22.0-30.0); Chloride 108 mmol/L (98-107); Creatinine Clearance Estimated 43 mL/min (50-200); Estimated Glomerular Filt Rate 28 ml/min (>60); GFR (African American) 34 ML/MIN (>60); Globulin 2.6 g/dL (1.3-3.2); Glucose 92 mg/dl (74-100); Magnesium 2.3 mg/dl (1.6-2.3); Potassium 4.5 mmoL/L (3.5-5.1); Sodium 134 mmol/L (136-145); Total Protein,Serum 5.5 g/dl (6.3-8.2)
[2023-11-30] MEDS: CEFEPIME HCL 2 GM in 0.9 % SODIUM CHLORIDE 100 ML IV (10:03)
[2023-11-30] MEDS: SENNOSIDES 8.6MG/DOCUSATE 50MG TABLET 1 TAB PO (10:04)
[2023-11-30] MEDS: PANTOPRAZOLE 40MG TABLET 40 MG PO (10:04)
[2023-11-30] MEDS: ENOXAPARIN 40MG/0.4ML SYRINGE 40 MG SQ (10:04)
[2023-11-30 10:09] LABS: POC Glucose,Bedside 152 (70-110)
[2023-11-30] MEDS: humaLOG 100 UNITS/ML 3ML VIAL (SSI) SQ (10:50)
[2023-11-30 11:46] VITALS: BP 131/63; PULSE 69; RESP 16; TEMP 36.8; O2SAT 95
[2023-11-30] MEDS: LEVOFLOXACIN/D5W 750 MG/150 ML 750 MG/150 ML PIGGYBACK 100 MG IV (11:58)
--- NOTE | 2023-11-30 15:45 | PC.NURSE ---
Pt. aox 1, 95% on RA, up with assistance times one, family present.
--- NOTE | 2023-11-30 15:59 | EXP.DC.SUM ---
General Admission date:: 11/29/23 Discharge date: 11/30/23 HPI HPI HPI: This is a 78 years old male with PMHx including but not limited to IDDM, Gout, HLD, GERD with recent history bladder cancer status post cystectomy with urostomy placement presenting with abdominal pain. Patient states that he has been feeling unwell for the past few days, but really started having right upper quadrant pain yesterday that radiates downward into his pelvis and backward into his back. History also confirmed with family at beside. Of note, patient also reported recent hospitalization due to history of yeast pyelonephritis with sepsis back on . Currently denies fevers or chills, nausea or vomiting, persistent diarrhea or constipation. Last bowel movement was yesterday and was mostly liquid, but patient is passing gas. Admitted for further treatment and management. Hospital Course Hospital Course Hospital Course: Mr. Anand is a 78 years old male with PMHx including but not limited to IDDM, Gout, HLD, GERD with recent history bladder cancer status post cystectomy with urostomy placement presenting with abdominal pain. Patient states that he has been feeling unwell for the past few days. On arrival patient presented non toxic, aymptomatic. Initial work up was significant for leukocytosis 23,000 with neutrophilic shift, mild hypokalemia 5.2, anion gap 19.2 with RUDI BUN 31 creatinine 2.2. Patient's lactate 2.4. Patient appears to have bilateral hydronephrosis. non obstructing stone. No evidence of perforation or bowel obstruction. Gallstone without obstruction. diffuse signs of diverticulosis without diverticulitis. Blood cultures and urine cultures obtained. Remain negative at discharge. Showed improvement with antibiotics. White cell count normalized. Tolerating p.o. intake. Stable for discharge home to complete antibiotics. Problems addressed as follows: -Abdominal pain presented with mild leukocytosis and lactic acidosis: to rule out Pyelonephritis in the setting of renal calculi without obstruction Previous HX of yeast pyelonephritis with sepsis. Patient was admitted for IV antibiotics. Initiated on broad-spectrum. Transitioned to levofloxacin by day of discharge. Urine culture was obtained. White cell count improved from 23,000-8.6. Urine culture did not grow anything after discharge however patient was discharged to complete a total of 7 days of antibiotics. Patient's symptoms improved during admission. Remained afebrile. Tolerating p.o. intake. Evaluated by therapy, stable to discharge home. Urine remained clear. Continues to have adequate urine output and has urostomy bag. Imaging noted cholelithiasis without obstrution and diverticulosis with out diverticulitis CKD: Previous Hx of hydronephrosis Creatinine 2.6. Unknown baseline. Improved to 2.3 by day of discharge. Suspect this is patient's baseline. BUN 32. Making good urine. Caution with nephrotoxins and renally dose medications. -IDDM: Sliding scale insulin during admission. Resume metformin at discharge. -Hx of bladder cancer s/p cystectomy with ileal conduit. Continue to follow with urology as an outpatient. Spent 30 minutes in discharge counseling, documentation, chart review, and direct care with patient. Exam Data for Last 24 hours Vital signs and Labs for Last 24 Hours: Temp Pulse Resp BP Pulse Ox O2 Del Method 98.2 F 69 16 131/63 95 Room Air 11/30/23 11:46 11/30/23 11:46 11/30/23 11:46 11/30/23 11:46 11/30/23 11:46 11/30/23 14:52 Laboratory Results - last 24 hr 11/29/23 20:15: POC Glucose 111 H 11/30/23 05:49: POC Glucose 92 11/30/23 07:25: WBC 8.6 D, RBC 4.12 L, Hgb 10.2 L, Hct 31.3 L, MCV 76.0 L, MCH 24.9 L, MCHC 32.7, RDW 15.7, Plt Count 232, MPV 8.7, Neut % (Auto) 82.8 H, Lymph % (Auto) 10.2, [place] % (Auto) 5.4, Eos % (Auto) 1.4, Baso % (Auto) 0.2, Neut # (Auto) 7.1, Lymph # (Auto) 0.9, [place] # (Auto) 0.5, Eos # (Auto) 0.1, Baso # (Auto) 0.0, Sodium 134 L, Potassium 4.5, Chloride 108 H, Carbon Dioxide 19 L, Anion Gap 11.5, BUN 37 H, Creatinine 2.30 H, Estimated Creat Clear 43, Estimated GFR 28 L, Est GFR ( Amer) 34 L, Glucose 92, Calcium 8.0 L, Magnesium 2.3 D, Total Bilirubin 0.9, AST 22, ALT 22, Alkaline Phosphatase 98, Total Protein 5.5 L, Albumin 2.9 L, Globulin 2.6, Albumin/Globulin Ratio 1.1 11/30/23 10:00: POC Glucose 152 H I & O for Last 24 hours: Intake & Output 11/27/23 11/28/23 11/29/23 11/30/23 23:59 23:59 23:59 23:59 Intake Total 5407 / 5567 620 / 620 Output Total 1525 / 1525 1125 / 1125 Balance 3882 / 4042 -505 / -505 Weight 108.409 kg 106.866 kg 110.314 kg Constitutional Constitutional: no acute distress, obese and chronically ill appearing *Routine HEENT Exam Head: Present normocephalic Eye: Present EOMI and PERRL ENT: Present mucous membranes moist *Routine Neck Exam Neck: Present supple; Absent lymphadenopathy *Routine Respiratory Exam Respiratory: Present CTA bilaterally; Absent rhonchi, wheezes or crackles *Routine Cardiovascular Exam Cardiovascular: Present RRR *Routine Abdominal Exam Abdominal: Present soft and normoactive bowel sounds; Absent tenderness Comments: right lower abdominal ileostomy draining clear urine. *Routine Rectal Exam Patient deferred: visual exam *Routine Exam Patient deferred: penile exam *Routine Extremities Exam Extremities: Absent cyanosis, clubbing or edema *Routine Skin Exam Skin: Present warm; Absent rash *Routine Neurological Exam Neurological: Present alert, oriented X3 and moving all extremities; Absent altered mental status Results Data Completed and Pending Labs on day of discharge: Labs from last 24 hours 11/30/23 11/30/23 11/30/23 10:00 07:25 05:49 WBC 8.6 D RBC 4.12 L Hgb 10.2 L Hct 31.3 L MCV 76.0 L MCH 24.9 L MCHC 32.7 RDW 15.7 Plt Count 232 MPV 8.7 Neut % (Auto) 82.8 H Lymph % (Auto) 10.2 [place] % (Auto) 5.4 Eos % (Auto) 1.4 Baso % (Auto) 0.2 Neut # (Auto) 7.1 Lymph # (Auto) 0.9 [place] # (Auto) 0.5 Eos # (Auto) 0.1 Baso # (Auto) 0.0 Sodium 134 L Potassium 4.5 Chloride 108 H Carbon Dioxide 19 L Anion Gap 11.5 BUN 37 H Creatinine 2.30 H Estimated Creat Clear 43 Estimated GFR 28 L Est GFR ( Amer) 34 L Glucose 92 POC Glucose 152 H 92 Calcium 8.0 L Magnesium 2.3 D Total Bilirubin 0.9 AST 22 ALT 22 Alkaline Phosphatase 98 Total Protein 5.5 L Albumin 2.9 L Globulin 2.6 Albumin/Globulin Ratio 1.1 11/29/23 20:15 WBC RBC Hgb Hct MCV MCH MCHC RDW Plt Count MPV Neut % (Auto) Lymph % (Auto) [place] % (Auto) Eos % (Auto) Baso % (Auto) Neut # (Auto) Lymph # (Auto) [place] # (Auto) Eos # (Auto) Baso # (Auto) Sodium Potassium Chloride Carbon Dioxide Anion Gap BUN Creatinine Estimated Creat Clear Estimated GFR Est GFR ( Amer) Glucose POC Glucose 111 H Calcium Magnesium Total Bilirubin AST ALT Alkaline Phosphatase Total Protein Albumin Globulin Albumin/Globulin Ratio DS: Diagnosis Discharge Diagnosis (1) Abdominal pain: Status: Acute Code(s): R10.9 - Unspecified abdominal pain Qualifiers: Abdominal location: generalized Qualified Code(s): R10.84 - Generalized abdominal pain (2) Renal calculi: Status: Acute Code(s): N20.0 - Calculus of kidney (3) Suspected UTI: Status: Acute Code(s): R39.89 - Other symptoms and signs involving the genitourinary system (4) Hydronephrosis: Status: Acute Code(s): N13.30 - Unspecified hydronephrosis Qualifiers: Hydronephrosis type: unspecified Qualified Code(s): N13.30 - Unspecified hydronephrosis (5) CKD (chronic kidney disease): Status: Acute Code(s): N18.9 - Chronic kidney disease, unspecified Qualifiers: Chronic kidney disease stage: unspecified stage Qualified Code(s): N18.9 - Chronic kidney disease, unspecified (6) Cholelithiasis: Status: Acute Code(s): K80.20 - Calculus of gallbladder without cholecystitis without obstruction Qualifiers: Biliary obstruction: without biliary obstruction Cholecystitis presence: without cholecystitis Cholelithiasis location: gallbladder Qualified Code(s): K80.20 - Calculus of gallbladder without cholecystitis without obstruction (7) Diverticulosis: Status: Acute Code(s): K57.90 - Diverticulosis of intestine, part unspecified, without perforation or abscess without bleeding (8) Diabetes: Status: Acute Code(s): E11.9 - Type 2 diabetes mellitus without complications Qualifiers: Diabetes mellitus complication status: with other specified complication Diabetes mellitus intermediate accountant insulin use: with senior living use Diabetes mellitus type: type 2 Qualified Code(s): E11.69 - Type 2 diabetes mellitus with other specified complication; Z79.4 - intermediate accountant (current) use of insulin (9) Hx of bladder cancer: Status: Acute Code(s): Z85.51 - Personal history of malignant neoplasm of bladder (10) H/O total cystectomy: Status: Acute Code(s): Z90.6 - Acquired absence of other parts of urinary tract Meds Home Medications and Allergies Home Medications Medication Instructions Recorded Confirmed Type allopurinol 100 mg tablet 100 mg PO DAILY 11/29/23 11/29/23 History atorvastatin 20 mg tablet 20 mg PO HS 11/29/23 11/29/23 History linaclotide 290 mcg capsule 290 mcg PO AM 11/29/23 11/29/23 History (Linzess) metformin 500 mg tablet 500 mg PO BIDWMEAL 11/29/23 11/29/23 History metoprolol succinate 50 mg 50 mg PO DAILY 11/29/23 11/29/23 History tablet,extended release 24 hr quetiapine 50 mg tablet 50 mg PO HS 11/29/23 11/29/23 History levofloxacin 750 mg tablet 750 mg PO Q48H 4 days #2 tabs 11/30/23 Rx New Prescriptions to Start Prescriptions: levofloxacin Darrell Kovacs Allergies Allergy/AdvReac Type Severity Reaction Status Date / Time No Known Allergies Allergy Verified 11/28/23 22:20 Discharge Plan Disposition Patient Disposition: Home, Self-Care Condition: Fair Follow up Plan Follow up with: Marquita Gutierrez APRN [Primary Care Provider] - Enter time for follow up (The office is closed for the day, please call tomorrow to make a hosptial follow up appt. ) Prescriptions/Medication Reconciliation: New levofloxacin 750 mg tablet 750 mg PO Q48H 4 Days Qty: 2 0RF Rx Instructions: first dose due 12/02/23 Continued metformin 500 mg tablet 500 mg PO BIDWMEAL atorvastatin 20 mg tablet 20 mg PO HS metoprolol succinate 50 mg tablet extended release 24 hr 50 mg PO DAILY Patient Comments: TAKE 1 TABLET BY MOUTH ONCE DAILY allopurinol 100 mg tablet 100 mg PO DAILY Linzess 290 mcg capsule 290 mcg PO AM quetiapine 50 mg tablet 50 mg PO HS Problem Reconciliation Problems Reviewed?: Yes Patient Discharge Instructions ACTIVITY: Continue current activity DIET: continue same diet Patient Instructions: DI for Abdominal Pain-Adult, DI for Chronic Pain -- Adult Providers Primary Care Provider: Marquita Gutierrez Admit Provider: Darrell Kovacs Attending Provider: Darrell Kovacs
[2023-11-30 16:00] VITALS: BP 140/72; PULSE 72; RESP 18; TEMP 36.5; O2SAT 99
--- NOTE | 2023-12-04 14:36 | CARE MANAGER ---
Spoke with patient's . She states he is doing well, but still having some stomach pain. He finished antibiotics today and has follow up with his PCP on Monday. DHARA Melendez
--- NOTE | 2023-12-10 19:29 | PC.NURSE ---
MEDICAL RECORDS FAXED TO [facility].
== END 2023-11-30 17:37 | disposition home or self-care (01) ==
LOC: ER 23:34 → 2ND 11-29 00:29
PROVIDERS: Nurse Practitioner Family; Admitting Provider Internal Medicine Adolescent Medicine; Emergency Provider Emergency Medicine; PCP Nurse Practitioner; Visit Provider Internal Medicine Adolescent Medicine
DX: N17.9 Acute kidney failure, unspecified (principal); R10.84 Generalized abdominal pain; N20.0 Calculus of kidney; N13.30 Unspecified hydronephrosis; N18.9 Chronic kidney disease, unspecified; K80.20 Calculus of gallbladder without cholecystitis without obstruction; K57.90 Diverticulosis of intestine, part unspecified, without perforation or abscess without bleeding; E11.69 Type 2 diabetes mellitus with other specified complication; Z79.4 Long term (current) use of insulin; Z90.6 Acquired absence of other parts of urinary tract; Z79.899 Other long term (current) drug therapy; Z87.891 Personal history of nicotine dependence; E11.22 Type 2 diabetes mellitus with diabetic chronic kidney disease; C67.9 Malignant neoplasm of bladder, unspecified; Z93.6 Other artificial openings of urinary tract status
CPT/HCPCS: 36415; 74177; 80053; 81001; 82962; 83605; 83690; 83735; 85007; 85025; 87040; 87086; 99285; G0378; J1956; J2405; J2543; J3370; Q9967

== ENCOUNTER 2024-03-16 15:40 | Emergency (ER) | payer MEDICARE, BC, SELFPAY ==
[2024-03-16 15:42] VITALS: BP 124/84; PULSE 77; RESP 18; TEMP 36.5; O2SAT 99; BMI 30.8
--- OUTSIDE RECORDS SUMMARY | 2024-03-16 15:56 | XMS_ITS | Clinical Summary ---
Author Name Unknown Address [address] [place] [address] [address] [place] [phone] Phone Organization [facility] Address [address] [place] [address] [place] [id number] Phone Care Team Providers Care Anaesthesiologist Name Role Phone Unavailable Unavailable Conditions or Problems No information available. Medications No information available. Medications Administered No information available. Allergies, Adverse Reactions, Alerts No information available. Results No information available. Plan of Care No information available. Procedures No information available. Vital Signs No information available. Immunizations No information available. Advance Directives No information available.
--- NOTE | 2024-03-16 15:59 | CT_ITS ---
PROCEDURE INFORMATION: Exam: CT Abdomen And Pelvis With Contrast Exam date and time: 03/16/2024 4:29 PM Age: 78 years old Clinical indication: Other: Rectal pain; Prior surgery; Surgery date: 1-6 months; Surgery type: PT unable to give time frame of nephrostomy tube; Compared to November scan tube was not present. Cystectomy TECHNIQUE: Imaging protocol: Computed tomography of the abdomen and pelvis with contrast. Radiation optimization: All CT scans at this facility use at least one of these dose optimization techniques: automated exposure control; mA and/or kV adjustment per patient size (includes targeted exams where dose is matched to clinical indication); or iterative reconstruction. Contrast material: ISOVUE; Contrast volume: 75 ml; Contrast route: IV; COMPARISON: CT ABDOMEN PELVIS W CON 11/28/2023 10:33 PM FINDINGS: Tubes, catheters and devices: Small amount of gas within left renal collecting system secondary to percutaneous nephrostomy tube. There is left-sided percutaneous nephrostomy tube. There is minimal prominence of the left renal pelvis, markedly improved from prior examination. Coronary arteries: Vascular calcification including coronary artery calcification. Liver: Cirrhotic liver morphology. Gallbladder and bile ducts: Cholelithiasis. Pancreas: Normal. No ductal dilation. Spleen: Splenomegaly measures 16 cm. Adrenal glands: Normal. No mass. Kidneys and ureters: There are left-sided renal calculi measuring up to 6 mm. There are renal cysts measuring up to 4 cm on the right. Additional small renal hypodensities bilaterally are too small to characterize. Right-sided hydroureteronephrosis is stable from prior examination. No obstructing calculus. Stomach and bowel: There is ileal conduit with right lower quadrant ostomy. Mild diverticulosis without diverticulitis. Appendix: No evidence of appendicitis. Intraperitoneal space: Unremarkable. No free air. No significant fluid collection. Vasculature: Unremarkable. No abdominal aortic aneurysm. Lymph nodes: Unremarkable. No enlarged lymph nodes. Urinary bladder: Previous cystectomy. Reproductive: Unremarkable as visualized. Bones/joints: There are degenerative changes involving the spine. Degenerative change involving the bilateral hip joints. Soft tissues: There is nonspecific soft tissue prominence of the anal rectal soft tissues. IMPRESSION: 1. Non-specific soft tissue prominence of the anorectal soft tissues. Consider infectious/inflammatory or neoplastic etiology, follow-up recommended. 2. Right-sided hydroureteronephrosis is stable from prior. 3. Interval placement of left-sided percutaneous nephrostomy tube with improvement in left-sided hydronephrosis and hydroureter. 4. Additional findings as above. COMMENTS: Consistent with the [employer]'s Incidental Findings Committee white paper (J Am Charlene Radiol 2018): Any incidental renal lesion less than 1 cm or classified as too small to characterize, or any incidental cystic renal lesion characterized as simple-appearing, is likely benign. No follow-up imaging is recommended for these lesions per consensus recommendations based on imaging criteria.
--- NOTE | 2024-03-16 16:02 | ED_ITS ---
Discharge Plan Disposition Patient Disposition: Home, Self-Care Prescriptions Prescriptions: New cefdinir 300 mg capsule 300 mg PO BID 10 Days Qty: 20 0RF No Action metformin 500 mg tablet 500 mg PO BIDWMEAL atorvastatin 20 mg tablet 20 mg PO HS metoprolol succinate 50 mg tablet extended release 24 hr 50 mg PO DAILY Patient Comments: TAKE 1 TABLET BY MOUTH ONCE DAILY allopurinol 100 mg tablet 100 mg PO DAILY Linzess 290 mcg capsule 290 mcg PO AM quetiapine 50 mg tablet 50 mg PO HS levofloxacin 750 mg tablet 750 mg PO Q48H 4 Days Qty: 2 0RF Rx Instructions: first dose due 12/02/23 Referrals Follow up/Referrals: Marquita Gutierrez APRN [Primary Care Provider] - See instructions Activity Restrictions/Add. Instructions Additional Instructions/Restrictions: At this time it was felt you are safe to be discharged home. If new or worsening symptoms please do not hesitate to return the emergency department. You have inflammation of your rectum which may be due to infection or cancer. It is very important that you follow-up with your family doctor within the next week to see if you can get in with gastroenterology sooner. Please maintain your gastroenterology appointment if you are not able to. Please take your antibiotics as prescribed. 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 Patient has had intermittent difficulty with bowel movements since his bladder surgery, however 48 hours ago he had a scope seeing if a stent can be placed in his left ureter which was unsuccessful necessitating nephrostomy placement. No blood in his bowel movement, last bowel movement yesterday. No other acute complaints at this time. Related Data Home Medications Medication Instructions Recorded Confirmed allopurinol 100 mg tablet 100 mg PO DAILY 11/29/23 11/29/23 atorvastatin 20 mg tablet 20 mg PO HS 11/29/23 11/29/23 linaclotide 290 mcg capsule 290 mcg PO AM 11/29/23 11/29/23 (Linzess) metformin 500 mg tablet 500 mg PO BIDWMEAL 11/29/23 11/29/23 metoprolol succinate 50 mg 50 mg PO DAILY 11/29/23 11/29/23 tablet,extended release 24 hr quetiapine 50 mg tablet 50 mg PO HS 11/29/23 11/29/23 Previous Rx's Medication Instructions Recorded levofloxacin 750 mg tablet 750 mg PO Q48H 4 days #2 tabs 11/30/23 cefdinir 300 mg capsule 300 mg PO BID uti and proctitis 10 03/16/24 days #20 caps Allergies Allergy/AdvReac Type Severity Reaction Status Date / Time No Known Allergies Allergy Verified 11/28/23 22:20 [facility] Disclaimer: The information contained in this section may have been updated after the patient was seen, as this information can be updated by other users. Medical History (Updated 03/16/24 @ 18:55 by Gerry French MD) Skin cancer Diabetes mellitus type 2, controlled Bladder cancer Dementia Surgical History (Updated 12/04/23 @ 00:16 by Isabel Keller) History of urostomy Family History (Updated 11/29/23 @ 02:21 by Keshia Poe RN) Mother Dementia Father Dementia Social History (Updated 11/29/23 @ 01:50 by Keshia Poe RN) Smoking Status: Former smoker tobacco type: cigarettes packs per day: 1 years smoked: 30 smoking status stop date: 30 years ago alcohol intake: never current occupational status: unemployed and retired Travel in the last 8 weeks: None ROS Obtained: Yes Systems reviewed as appropriate & no additional complaints except as documented Physical Exam General General appearance: alert and in no apparent distress Head Head exam: atraumatic and normocephalic Eye Eye exam: Present PERRL ENT ENT exam: Present mucous membranes moist Neck Neck exam: Present normal inspection Chest Chest inspection: Present normal inspection and symmetric chest wall rise Respiratory Respiratory exam: Absent respiratory distress Cardiovascular Cardiovascular exam: Present regular rate and normal rhythm Abdominal Exam Abdominal exam: Present soft; Absent tenderness, guarding or rebound exam: Present other (Loss Prevention Consultant present, external anal sphincter normal, no hemorrhoids, no fissures.) Extremities Exam Extremities exam: Present normal inspection Neurological Exam Neurological exam: Present alert Psychiatric Psychiatric exam: Present normal affect Skin Skin exam: Present warm and dry Medical Decision Making Andres Inquiry Pt receiving controlled substance: No Vital Signs: 03/16/24 15:42 03/16/24 16:08 Temperature 97.7 F Temperature Source Oral Pulse Rate 75 Pulse Rate [Right] 77 Respiratory Rate 18 Blood Pressure 124/82 Blood Pressure [Right Arm] 124/84 Blood Pressure Mean [Right Arm] 97 02 Sat by Pulse Oximetry 99 97 Oxygen Delivery Method Room Air Room Air Lab Data Lab Results 03/16/24 15:53: WBC 12.2 H, RBC 4.73, Hgb 11.8 L, Hct 38.5 L, MCV 81.5, MCH 25.0 L, MCHC 30.7 L, RDW 17.2, Plt Count 300, MPV 8.4, Neut % (Auto) 82.1 H, Lymph % (Auto) 10.3, [place] % (Auto) 5.2, Eos % (Auto) 2.0, Baso % (Auto) 0.5, Neut # (Auto) 10.1 H, Lymph # (Auto) 1.3, Hawkins # (Auto) 0.6, Eos # (Auto) 0.3, Baso # (Auto) 0.1, Sodium 138, Potassium 5.2 H, Chloride 107, Carbon Dioxide 22, Anion Gap 14.2, BUN 32 H, Creatinine 2.40 H, Estimated Creat Clear 40, Estimated GFR 26 L, Est GFR ( Amer) 32 L, Glucose 115 H, Calcium 9.5, Total Bilirubin 1.4 H, AST 30, ALT 24, Alkaline Phosphatase 132 H, Total Protein 7.3 D, Albumin 4.0, Globulin 3.3 H, Albumin/Globulin Ratio 1.2, Lipase 47, Urine Color [place], Urine Appearance Sl cloudy, Urine pH 7.0, Ur Specific [place] 1.015, Urine Protein 2+, Urine Glucose (UA) Negative, Urine Ketones Trace, Urine Blood 3+, Urine Nitrate Negative, Urine Bilirubin 1+ A, Urine Urobilinogen 0.2, Ur Leukocyte Esterase 2+ A, Urine RBC 20-50, Urine WBC 10-20, Ur Squamous Epith Cells None, Urine Bacteria Trace 03/16/24 15:53 03/16/24 15:53 Orders (Tests/Meds): ED MEDICATIONS Discontinued Medications Generic Name Dose Route Start Last Admin Trade Name Rmeiq PRN Reason Stop Dose Admin Acetaminophen 1,000 mg 03/16/24 16:01 03/16/24 16:13 Acetaminophen 1,000mg/100ml Vial IV 03/16/24 16:02 1,000 mg ONCE ONE Administration Lactated Ringer's 1,000 mls @ 999 mls/hr 03/16/24 16:01 03/16/24 16:13 Lactated Ringer's 1000 Ml Bag IV 03/16/24 17:01 999 mls/hr .Q1H1M ONE Administration Iopamidol 75 ml 03/16/24 16:31 03/16/24 16:32 Iopamidol-370 (76%);100ml Bottle IV 03/16/24 16:32 75 ml ONCE ONE Administration Morphine Sulfate 4 mg 03/16/24 15:59 03/16/24 16:13 Morphine 4mg/Ml Syringe IV 03/16/24 16:00 4 mg ONCE ONE Administration Sodium Chloride 10 ml 03/16/24 16:31 03/16/24 16:32 Sodium Chloride 0.9% 10ml Syr (Rad Only) IV 03/16/24 16:32 10 ml ONCE ONE Administration ORDERS Category Date Time Status CT abdomen pelvis w con Stat Cat Scan 03/16/24 15:59 Completed CBC w/Auto Diff [Complete Blood Count Auto Diff] Stat Lab 03/16/24 15:53 Completed CMP [Comprehensive Metabolic Panel] Stat Lab 03/16/24 15:53 Completed Diarrhea 23 Panel, PCR Stat Lab 03/16/24 16:11 Ordered Lipase Stat Lab 03/16/24 15:53 Completed UA [Urinalysis and Microscopic] Stat Lab 03/16/24 15:53 Completed Urine Culture Stat Micro 03/16/24 15:53 Received Medical Decision Narrative: In summary patient is a 78-year-old male past medical history described above presents emergency department for evaluation of rectal pain in the setting of previous bladder cancer. Patient is hemodynamically stable nontoxic-appearing arrival, appearing uncomfortable, afebrile. Differential diagnosis includes recurrent malignancy, proctitis, stercoral colitis, among others. Workup will be conducted with hematologic labs, CT abdomen pelvis IV contrast, urinalysis from left nephrostomy tube. Initial inventions include crystalloid bolus, Tylenol, morphine. Initial workup reviewed by me, mild leukocytosis, mild hypokalemia which is nonactionable, stable CKD. Urinalysis has trace bacteria and leuk esterase, nitrite negative, white blood cells consistent with infection although it is difficult to interpret given his recent insertion of nephrostomy tube which could be explained by acute inflammation. CT imaging of the abdomen pelvis has nonspecific soft tissue prominence of the anorectal tissues consider an infectious/inflammatory/neoplastic etiology, stable right hydroureteronephrosis and interval placement of the left-sided percutaneous nephrostomy tube. Patient has stool burden in his rectum on my informal interpretation. Patient will be given an enema at bedside. Patient underwent enema at bedside and was largely unsuccessful. Manual disimpaction was offered however patient wishes to decline at this point and try on an outpatient basis. Given proctitis and he is already on doxycycline from his recent nephrostomy cefdinir will be added for appropriate broad coverage. Patient was given return precautions and a bowel cleanout sheet. Patient will follow-up with family doctor next week to help facilitate rapid GI referral for colonoscopy which is likely to be needed given the possibility of malignancy. Critical Care Critical Care Time Critical Care Time: No
[2024-03-16 16:08] VITALS: BP 124/82; PULSE 75; O2SAT 97
[2024-03-16 16:09] LABS: Microscopic, Urine URINE MICROSCOPIC (MICROSCOPIC)
[2024-03-16 16:10] LABS: Chloride 107 mmol/L (98-107); Sodium 138 mmol/L (136-145)
[2024-03-16 16:11] LABS: Potassium 5.2 mmoL/L (3.5-5.1)
[2024-03-16 16:13] LABS: Alanine Aminotransferase 24 U/L (12-78); Albumin/Globulin Ratio 1.2 (1.1-1.8); Alkaline Phosphatase 132 U/L (38-126); Anion Gap 14.2 mEq/L (5-15); Aspartate Amino Transferase 30 U/L (17-59); Bilirubin,Total 1.4 mg/dl (0.2-1.3); Blood Urea Nitrogen 32 mg/dl (9-20); Carbon Dioxide 22 mmol/L (22.0-30.0); Creatinine Clearance Estimated 40 mL/min (50-200); Estimated Glomerular Filt Rate 26 ml/min (>60); GFR (African American) 32 ML/MIN (>60); Globulin 3.3 g/dL (1.3-3.2); Glucose 115 mg/dl (74-100); Lipase 47 U/L (23-300); Total Protein,Serum 7.3 g/dl (6.3-8.2)
[2024-03-16] MEDS: MORPHINE 4MG/ML SYRINGE 4 MG IV (16:13)
[2024-03-16] MEDS: ACETAMINOPHEN 1,000MG/100ML VIAL 1000 MG IV (16:13)
[2024-03-16] MEDS: LACTATED RINGERS 1000ML 1,000 ML 999 ML IV (16:13)
[2024-03-16 16:14] LABS: Calcium 9.5 mg/dl (8.4-10.2)
[2024-03-16 16:16] LABS: Basophils # 0.1 K/mm3 (0-0.2); Basophils % 0.5 % (0.1-2.0); Eosinophils # 0.3 K/mm3 (0.0-0.4); Hematocrit 38.5 % (42.0-52.0); Hemoglobin 11.8 g/dL (14.1-18.0); Lymphocytes # 1.3 K/mm3 (0.7-4.5); Lymphocytes % 10.3 % (10-50); Mean Corpuscular HGB Conc 30.7 g/dL (31.8-35.4); Mean Corpuscular Volume 81.5 fl (80-94); Mean Platelet Volume 8.4 fl (7.4-10.4); Monocytes # 0.6 K/mm3 (0.1-1.0); Monocytes % 5.2 % (1.7-9.3); Neutrophils # 10.1 K/mm3 (1.8-7.8); Neutrophils % 82.1 % (37.0-80.0); Platelet Count 300 K/mm3 (142-424); Red Blood Count 4.73 M/mm3 (4.60-6.20); Red Cell Distribution Width 17.2 % (11.5-17.5); White Blood Count 12.2 K/mm3 (4.8-10.8)
[2024-03-16 16:18] LABS: Appearance,Urine SL CLOUDY (Clear); Blood, Urine 3+ (Negative); Color,Urine ORANGE (Yellow); Glucose,Urine (UA) Negative (Negative); Ketones,Urine TRACE (Negative); Leukocyte Esterase,Urine 2+ (Negative); Nitrate,Urine Negative (Negative); Protein,Urine 2+ (Negative); Specific Gravity, Urine 1.015 (1.005-1.030); Urobilinogen,Urine 0.2 EU/dl (0.2)
[2024-03-16 16:22] LABS: Bilirubin,Urine 1+ (Negative)
[2024-03-16 16:23] LABS: Bacteria,Urine Trace /lpf; RBC,Urine 20-50 #/hpf (0-3)
--- NOTE | 2024-03-16 16:29 | HMH.ITSTN ---
ER physician, , aware of GFR results, verbal order given to override & give patient contrast; GFR results were overrode for the use of contrast media by the Physician on a risk vs. benefit situation with this patient
[2024-03-16] MEDS: IOPAMIDOL-370 (76%);100ML BOTTLE 75 ML IV (16:32)
[2024-03-16] MEDS: SODIUM CHLORIDE 0.9% 10ML SYR (RAD ONLY) 10 ML IV (16:32)
--- NOTE | 2024-03-16 17:48 | PC.NURSE ---
Neil Garcia RN gave pt a soap suds enema, let pt hold in for several minutes and is now on the BSC in attempt to have a BM. Call light with-in reach.
--- NOTE | 2024-03-16 17:54 | PC.NURSE ---
soap marlene enema administered. pt tolerated well. currently on bsc. @ bedside
--- NOTE | 2024-03-16 18:39 | PC.NURSE ---
pt unsuccessful with bm @ this time
[2024-03-16] MEDS: CEFDINIR 300MG CAPSULE 300 MG PO (19:00)
[2024-03-16 19:04] VITALS: BP 177/81; PULSE 79; RESP 18; TEMP 36.7; O2SAT 94
--- NOTE | 2024-03-22 09:10 | PC.NURSE ---
discussed with about urine culture, due to the results pt is to receive one time dose of antifugal, discussed with who states pt is feeling better but still has burning around his rectum. Aware that new script is called into [facility] pharmacy in [place] of pt choice.
== END 2024-03-16 19:05 | disposition home or self-care (01) ==
PROVIDERS: Emergency Provider Emergency Medicine; PCP Nurse Practitioner
DX: N39.0 Urinary tract infection, site not specified (principal); K59.00 Constipation, unspecified; K62.89 Other specified diseases of anus and rectum; N13.30 Unspecified hydronephrosis; N13.4 Hydroureter; N18.4 Chronic kidney disease, stage 4 (severe); E11.22 Type 2 diabetes mellitus with diabetic chronic kidney disease; Z79.84 Long term (current) use of oral hypoglycemic drugs; Z85.51 Personal history of malignant neoplasm of bladder; Z90.6 Acquired absence of other parts of urinary tract
CPT/HCPCS: 74177; 80053; 81001; 83690; 85025; 87086; 96361; 96374; 96375; 99285; J0131; Q9967

== ENCOUNTER 2024-03-17 19:52 | Observation (INO) | payer MEDICARE, BC, SELFPAY ==
[2024-03-17 19:53] VITALS: BP 138/84; PULSE 73; RESP 16; TEMP 36.4; O2SAT 98; BMI 30.3
--- NOTE | 2024-03-17 20:05 | ED_ITS ---
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 Patient has had intermittent difficulty with bowel movements since his bladder surgery, however 72 hours ago he had a scope seeing if a stent can be placed in his left ureter which was unsuccessful necessitating nephrostomy placement. No blood in his bowel movement, last bowel movement 2 days ago however small. I saw him in the emergency department last night where workup was remarkable for nonspecific thickening of the anorectal soft tissues which may be inflammatory infectious or neoplastic in etiology. By my interpretation patient had a significant stool ball for which he underwent enema and was unsuccessful. He was offered manual disimpaction which she declined and went home. Since then he has tried magnesium citrate and has been unsuccessful. Due to inability to have a bowel movement he presents here for continued evaluation. He has no other acute complaints that need to be evaluated other than he wishes to have a bowel movement. Related Data Home Medications Medication Instructions Recorded Confirmed allopurinol 100 mg tablet 100 mg PO DAILY 11/29/23 03/17/24 atorvastatin 20 mg tablet 20 mg PO HS 11/29/23 03/17/24 metoprolol succinate 50 mg 50 mg PO DAILY 11/29/23 03/17/24 tablet,extended release 24 hr quetiapine 50 mg tablet 50 mg PO HS 11/29/23 03/17/24 doxycycline monohydrate 100 mg 100 mg PO BID 03/17/24 03/17/24 tablet polyethylene glycol 3350 17 17 g PO DAILY 03/17/24 03/17/24 gram/dose oral powder (ClearLax) Previous Rx's Medication Instructions Recorded cefdinir 300 mg capsule 300 mg PO BID uti and proctitis 10 03/16/24 days #20 caps Allergies Allergy/AdvReac Type Severity Reaction Status Date / Time No Known Allergies Allergy Verified 11/28/23 22:20 [facility] Disclaimer: The information contained in this section may have been updated after the patient was seen, as this information can be updated by other users. Medical History Skin cancer Diabetes mellitus type 2, controlled Bladder cancer Dementia Surgical History History of urostomy Family History (Updated 11/29/23 @ 02:21 by Keshia Poe RN) Mother Dementia Father Dementia Social History (Updated 03/17/24 @ 21:35 by Keshia Poe RN) Smoking Status: Former smoker tobacco type: cigarettes packs per day: 1 years smoked: 30 smoking status stop date: 30 years ago alcohol intake: never current occupational status: unemployed and retired Travel in the last 8 weeks: None ROS Obtained: Yes Systems reviewed as appropriate & no additional complaints except as documented Physical Exam General General appearance: alert and in no apparent distress Head Head exam: atraumatic and normocephalic Eye Eye exam: Present PERRL ENT ENT exam: Present mucous membranes moist Neck Neck exam: Present normal inspection Chest Chest inspection: Present normal inspection and symmetric chest wall rise Respiratory Respiratory exam: Absent respiratory distress Cardiovascular Cardiovascular exam: Present regular rate and normal rhythm Abdominal Exam Abdominal exam: Present soft; Absent tenderness, guarding or rebound Extremities Exam Extremities exam: Present normal inspection Neurological Exam Neurological exam: Present alert Psychiatric Psychiatric exam: Present normal affect Skin Skin exam: Present warm and dry Medical Decision Making Andres Inquiry Pt receiving controlled substance: No Vital Signs: 03/17/24 19:53 03/17/24 21:10 Temperature 97.5 F L 97.6 F Temperature Source Oral Oral Pulse Rate 70 Pulse Rate [Right] 73 Respiratory Rate 16 16 Blood Pressure 132/75 Blood Pressure [Right Arm] 138/84 Blood Pressure Mean [Right Arm] 102 02 Sat by Pulse Oximetry 98 Lab Data 03/17/24 21:35 03/17/24 21:35 Orders (Tests/Meds): ED MEDICATIONS Generic Name Dose Route Start Last Admin Trade Name Freq PRN Reason Stop Dose Admin Docusate Sodium 100 mg 03/17/24 21:00 03/17/24 21:33 Docusate Sodium 100 Mg Capsule PO 04/16/24 20:59 100 mg DAILY OLU Administration Lactated Ringer's 1,000 mls @ 100 mls/hr 03/17/24 21:00 03/17/24 21:38 Lactated Ringer's 1000 Ml Bag IV 04/16/24 20:59 100 mls/hr .Q10H OLU Administration Insulin Human Lispro 0 unit 03/17/24 21:00 03/17/24 21:30 Humalog 100 Units/Ml 3ml Vial (Ssi) SQ 04/16/24 20:59 Not Given ACHS OLU Protocol Mineral Oil 133 ml 03/17/24 22:23 03/17/24 22:31 Mineral Oil Enema 133ml RC 04/16/24 22:22 133 ml NEEDED PRN Administration Constipation Polyethylene Glycol 17 gm 03/17/24 20:55 03/17/24 21:31 Polyethylene Glycol 3350 17 Gm Packet PO 04/16/24 20:54 17 gm DAILY OLU Administration Senna/Docusate Sodium 1 tab 03/17/24 21:00 03/17/24 21:33 Sennosides 8.6mg/Docusate 50mg Tablet PO 04/16/24 20:59 1 tab BID OLU Administration ORDERS Category Date Time Status Basic Metabolic Panel AMLAB Lab 03/18/24 06:00 Ordered Complete Blood Count Auto Diff AMLAB Lab 03/18/24 06:00 Ordered Medical Decision Narrative: In summary patient is a 78-year-old male with past medical history described above who presents emergency department for evaluation of inability to have a bowel movement. Patient was worked up by me less than 24 hours ago who has thickening of his rectum which may be inflammatory or neoplastic in etiology. Given his history of bladder cancer my suspicion for neoplastic etiology is high and patient is pending outpatient GI evaluation. He is otherwise well-appearing and afebrile without tachycardia, nontender abdominal exam. Given this workup with labs and imaging was considered but will be deferred as they are likely to be fruitless. Patient wishes to have disimpaction at bedside for which we will proceed. Disimpaction at bedside was attempted and was partially unsuccessful due to significant pain. Enema was passed past the disimpaction was attempted which was unsuccessful. Patient is having severe persistent pain and is unable to tolerate manual impaction without procedural sedation. Given this the case was discussed with hospital medicine who admit the patient their service for continued evaluation at this time as patient will likely have to be disimpacted in the OR tomorrow. Critical Care Critical Care Time Critical Care Time: No
--- OUTSIDE RECORDS SUMMARY | 2024-03-17 20:06 | XMS_ITS | Clinical Summary ---
Author Name Unknown Address [address] [place] [address] [address] [place] [phone] Phone Organization [facility] Address [address] [place] [address] [place] [phone] Phone Care Team Providers Care Brick Dropper Name Role Phone Unavailable Unavailable Conditions or Problems No information available. Medications No information available. Medications Administered No information available. Allergies, Adverse Reactions, Alerts No information available. Results No information available. Plan of Care No information available. Procedures No information available. Vital Signs No information available. Immunizations No information available. Advance Directives No information available.
--- OUTSIDE RECORDS SUMMARY | 2024-03-17 21:01 | XMS_ITS | Clinical Summary ---
Author Name Unknown Address [address] [place] [address] [address] [place] [phone] Phone Organization [facility] Address [address] [place] [address] [place] [phone] Phone Care Team Providers Care Edge Grinder Machine Name Role Phone Unavailable Unavailable Conditions or Problems No information available. Medications No information available. Medications Administered No information available. Allergies, Adverse Reactions, Alerts No information available. Results No information available. Plan of Care No information available. Procedures No information available. Vital Signs No information available. Immunizations No information available. Advance Directives No information available.
[2024-03-17 21:10] VITALS: BP 132/75; PULSE 70; RESP 16; TEMP 36.4; O2SAT 97
--- NOTE | 2024-03-17 21:22 | PC.NURSE ---
Patient arrived to floor via wheelchair from ED at 21:15.
[2024-03-17 21:27] VITALS: BP 133/85; PULSE 69; RESP 17; TEMP 36.5; O2SAT 100; BMI 30.9
[2024-03-17] MEDS: POLYETHYLENE GLYCOL 3350 17 GM PACKET PO (21:31)
[2024-03-17] MEDS: SENNOSIDES 8.6MG/DOCUSATE 50MG TABLET 1 TAB PO (21:33)
[2024-03-17] MEDS: DOCUSATE SODIUM 100 MG CAPSULE PO (21:33)
[2024-03-17 21:36] LABS: POC Glucose,Bedside 107 (70-110)
[2024-03-17] MEDS: LACTATED RINGERS 1000ML 1,000 ML 100 ML IV (21:38)
[2024-03-17] MEDS: MINERAL OIL ENEMA 133ML 133 ML RC (22:31)
[2024-03-17 22:51] LABS: Basophils # 0.1 K/mm3 (0-0.2); Basophils % 0.6 % (0.1-2.0); Eosinophils # 0.2 K/mm3 (0.0-0.4); Eosinophils % 1.7 % (0.1-12.0); Hematocrit 35.8 % (42.0-52.0); Hemoglobin 11.6 g/dL (14.1-18.0); Lymphocytes # 1.7 K/mm3 (0.7-4.5); Lymphocytes % 19.1 % (10-50); Mean Corpuscular HGB Conc 32.4 g/dL (31.8-35.4); Mean Corpuscular Hemoglobin 26.1 pg (27.0-31.2); Mean Corpuscular Volume 80.5 fl (80-94); Mean Platelet Volume 8.9 fl (7.4-10.4); Monocytes # 0.6 K/mm3 (0.1-1.0); Monocytes % 6.4 % (1.7-9.3); Neutrophils # 6.3 K/mm3 (1.8-7.8); Neutrophils % 72.3 % (37.0-80.0); Platelet Count 239 K/mm3 (142-424); Red Blood Count 4.45 M/mm3 (4.60-6.20); Red Cell Distribution Width 17.2 % (11.5-17.5); White Blood Count 8.7 K/mm3 (4.8-10.8)
[2024-03-17 22:54] LABS: Chloride 104 mmol/L (98-107); Sodium 136 mmol/L (136-145)
[2024-03-17 22:55] LABS: Potassium 4.9 mmoL/L (3.5-5.1)
[2024-03-17 22:57] LABS: Alanine Aminotransferase 37 U/L (12-78); Albumin Level 3.8 g/dl (3.5-5.0); Albumin/Globulin Ratio 1.2 (1.1-1.8); Alkaline Phosphatase 125 U/L (38-126); Anion Gap 13.9 mEq/L (5-15); Aspartate Amino Transferase 61 U/L (17-59); Blood Urea Nitrogen 33 mg/dl (9-20); Carbon Dioxide 23 mmol/L (22.0-30.0); Creatinine Clearance Estimated 36 mL/min (50-200); Estimated Glomerular Filt Rate 24 ml/min (>60); GFR (African American) 29 ML/MIN (>60); Globulin 3.1 g/dL (1.3-3.2); Total Protein,Serum 6.9 g/dl (6.3-8.2)
[2024-03-17 22:58] LABS: Calcium 9.4 mg/dl (8.4-10.2); Glucose 101 mg/dl (74-100)
--- NOTE | 2024-03-17 23:37 | P.HP_ITS ---
History of Present Illness *Admission Date: 03/17/24 *Reason for visit:: Rectal pain *History of present illness: This is a 78-year-old male with a past medical history of bladder cancer status post cystectomy with ileal conduit and now new left nephrostomy tube presents emergency department today with complaints of rectal pain. He was seen yesterday in the emergency department for same complaint. At that time he underwent CT scanning of his abdomen which was notable for nonspecific soft tissue prominence around the anorectal soft tissues concerning for infectious versus inflammatory versus neoplastic etiologies. During his ER visit yesterday he had an appreciable stool ball noted per ER staff. Enemas and manual disimpaction was attempted but patient opted to try to empty his bowels at home after his ER visit. He presents back today with continued rectal pain. Further disimpaction was attempted but unsuccessful. Patient was ultimately treated in the emergency department for mild UTI and proctitis. He was treated with doxycycline and cefdinir yesterday, but given inability to clear his bowels, he was admitted for further evaluation. Otherwise patient is stable. Labs are at his baseline. Creatinine today at 2.6 which is not too far from patient's baseline of 2.3. Given his continued constipation and inability to empty his bowels, he will admitted to The hospitalist service. [facility] Disclaimer: The information contained in this section may have been updated after the patient was seen, as this information can be updated by other users. Medical History (Updated 03/17/24 @ 23:49 by MACEY Sevilla) Skin cancer Diabetes mellitus type 2, controlled Bladder cancer Dementia Surgical History History of urostomy Family History (Updated 11/29/23 @ 02:21 by Keshia Poe RN) Dementia Mother Father Social History (Updated 03/17/24 @ 21:35 by Keshia Poe RN) Smoking Status: Former smoker tobacco type: cigarettes packs per day: 1 years smoked: 30 smoking status stop date: 30 years ago alcohol intake: never current occupational status: unemployed and retired Travel in the last 8 weeks: None Review of Systems Constitutional Constitutional: Reports as per HPI Eyes Eyes: Reports as per HPI ENT Ears, Nose, Mouth, and Throat: Reports as per HPI *Cardiovascular Cardiovascular: Reports as per HPI *Respiratory Respiratory: Reports as per HPI *Gastrointestinal Gastrointestinal: Reports as per HPI *Genitourinary Genitourinary: Reports as per HPI *Musculoskeletal Musculoskeletal: Reports as per HPI Integumentary/Breasts Skin/Breast: Reports as per HPI *Neurologic Neurologic: Reports as per HPI Psychiatric Psychiatric: Reports as per HPI Endocrine Endocrine: Reports as per HPI Hematologic/Lymphatic Hematologic/Lymphatic: Reports as per HPI Allergic/Immunologic Allergic/Immunologic: Reports as per HPI Meds Home Medications and Allergies Home Medications Medication Instructions Recorded Confirmed Type allopurinol 100 mg tablet 100 mg PO DAILY 11/29/23 03/18/24 History atorvastatin 20 mg tablet 20 mg PO HS 11/29/23 03/18/24 History metoprolol succinate 50 mg 50 mg PO DAILY 11/29/23 03/18/24 History tablet,extended release 24 hr quetiapine 50 mg tablet 50 mg PO HS 11/29/23 03/18/24 History polyethylene glycol 3350 17 17 g PO DAILY 03/17/24 03/18/24 History gram/dose oral powder (ClearLax) cefdinir 300 mg capsule 300 mg PO BID 03/18/24 03/18/24 History ferrous sulfate 325 mg (65 mg 325 mg PO DAILY 03/18/24 03/18/24 History iron) tablet (FeroSul) magnesium oxide 400 mg (241.3 mg 400 mg PO DAILY 03/18/24 03/18/24 History magnesium) tablet oxycodone-acetaminophen 7.5 mg-325 1 tab PO Q6HP PRN Moderate Pain 03/18/24 03/18/24 History mg tablet (Scale Score 5-6) sennosides 8.6 mg-docusate sodium 1 tab PO BID 30 days #60 tabs 03/18/24 Rx 50 mg tablet (Stimulant Laxative Plus) New Prescriptions to Start Prescriptions: sennosides-docusate sodium [Stimulant Laxative Plus] Darrell Kovacs Allergies Allergy/AdvReac Type Severity Reaction Status Date / Time No Known Allergies Allergy Verified 11/28/23 22:20 Exam Data for Last 24 hours Vital signs and Labs for Last 24 Hours: Temp Pulse Resp BP Pulse Ox O2 Del Method 97.7 F 69 17 133/85 100 Room Air 03/17/24 21:27 03/17/24 21:27 03/17/24 21:27 03/17/24 21:27 03/17/24 21:27 03/17/24 22:37 Laboratory Results - last 24 hr 03/17/24 21:25: POC Glucose 107 03/17/24 21:35: WBC 8.7 D, RBC 4.45 L, Hgb 11.6 L, Hct 35.8 L, MCV 80.5, MCH 26.1 L, MCHC 32.4, RDW 17.2, Plt Count 239, MPV 8.9, Neut % (Auto) 72.3, Lymph % (Auto) 19.1, Wilkes % (Auto) 6.4, Eos % (Auto) 1.7, Baso % (Auto) 0.6, Neut # (Auto) 6.3, Lymph # (Auto) 1.7, Wilkes # (Auto) 0.6, Eos # (Auto) 0.2, Baso # (Au to) 0.1, Sodium 136, Potassium 4.9, Chloride 104, Carbon Dioxide 23, Anion Gap 13.9, BUN 33 H, Creatinine 2.60 H, Estimated Creat Clear 36, Estimated GFR 24 L, Est GFR ( Amer) 29 L, Glucose 101 H, Calcium 9.4, Total Bilirubin 1.0, AST 61 H D, ALT 37 D, Alkaline Phosphatase 125, Total Protein 6.9, Albumin 3.8, Globulin 3.1, Albumin/Globulin Ratio 1.2 I & O for Last 24 hours: Intake & Output 03/14/24 03/15/24 03/16/24 03/17/24 23:59 23:59 23:59 23:59 Output Total 0 / 0 Balance 0 / 0 Weight 106.095 kg Constitutional Constitutional: no acute distress *Routine HEENT Exam Head: Present normocephalic Eye: Present EOMI and PERRL ENT: Present mucous membranes moist *Routine Neck Exam Neck: Present supple; Absent lymphadenopathy *Routine Respiratory Exam Respiratory: Present CTA bilaterally *Routine Cardiovascular Exam Cardiovascular: Present RRR *Routine Abdominal Exam Abdominal: Present soft and tenderness (Mild tenderness noted) Comments: Hypoactive bowel sounds in the left lower and right lower quadrant. Ileoconduit present at the suprapubic region. Stoma pink and patent, clear urine noted in bag. Left nephrostomy tube noted with mildly cloudy urine noted in bag *Routine Rectal Exam Rectal:: deferred *Routine Genitalia Exam Genitalia:: deferred *Routine Extremities Exam Extremities: Absent cyanosis, clubbing or edema *Routine Skin Exam Skin: Present warm; Absent rash *Routine Neurological Exam Neurological: Present alert and oriented X3 Assessment and Plan *Assessment and plan (1) Impaction of colon: Status: Acute Category: Medical Code(s): K56.49 - Other impaction of intestine (2) Acute UTI: Status: Acute Category: Medical Code(s): N39.0 - Urinary tract infection, site not specified (3) Constipation: Status: Acute Qualifiers: Constipation type: other constipation type Qualified Code(s): K59.09 - Other constipation Category: Medical Code(s): K59.00 - Constipation, unspecified (4) Inflammation of the rectum: Status: Acute Category: Medical Code(s): K62.89 - Other specified diseases of anus and rectum (5) Diabetes: Status: Acute Qualifiers: Diabetes mellitus complication status: with other specified complication Diabetes mellitus group home insulin use: with group home use Diabetes mellitus type: type 2 Qualified Code(s): E11.69 - Type 2 diabetes mellitus with other specified complication; 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 Presented with constipation and abdominal pain. Discussed case with ER, request admission for further management. Medicine agreed to admit. Problems addressed as follows: #Constipation Patient reports swelling of valve shortly after nephrostomy tube placed approximately 3 days ago Reports last bowel movement approximately 3 days ago. On admission had the urge to have bowel movement and had 3 small stool balls Will continue with robust bowel regimen Enema, senna doc and MiraLAX ordered Continue maintenance IV Inflammation of the rectum noted, will continue treatment for proctitis #CKD stage IV #History of bladder cancer History of total cystectomy Ileaoconduit and nephrostomy tube both functioning appropriately Monitor intake and output Continue maintenance IV fluids #Diabetes mellitus Continue sliding scale insulin. Hold oral diabetic agents #HLD Continue statin medication DVT PPx SQH Full code Rounded on patient after nurse practitioner. Personally examined and interviewed patient. Agree with exam findings and care plan as documented.
[2024-03-18] VITALS: BP 137/79; PULSE 61; RESP 17; TEMP 36.6; O2SAT 98
[2024-03-18] MEDS: WITCH HAZEL 40 PADS/BOX 1 EACH TP (00:59)
[2024-03-18] MEDS: LIDOCAINE 5% OINTMENT 35GM TUBE TP (01:15)
[2024-03-18] MEDS: ACETAMINOPHEN 325MG TAB 650 MG PO (02:45)
[2024-03-18] MEDS: QUETIAPINE 25MG TABLET 50 MG PO (02:46)
[2024-03-18 04:00] VITALS: BP 111/61; PULSE 63; RESP 17; TEMP 36.9; O2SAT 96; BMI 30.9
--- NOTE | 2024-03-18 04:40 | PC.NURSE ---
Patient has been extremely restless this shift. Patient has been up and down from the toilet most of the shift. did not settle down until he received his night time medication and was able to rest some. Patient finally has a large liquid BM around 4 am and then another large liquid BM around 4:30am. Patient stated he felt some relief. has remained at bedside. Patient is alert to name, but does ask the same questions over and over again. Patient does have a history of dementia. Patient only complaint has been burning of is anus. The witch katie pad have helped some, the lidocaine didn't help as he just kept wiping it off using the bathroom.
--- NOTE | 2024-03-18 07:28 | P.DS_ITS ---
General Admission date:: 03/17/24 Discharge date: 03/18/24 HPI HPI HPI: This is a 78-year-old male with a past medical history of bladder cancer status post cystectomy with ileal conduit and now new left nephrostomy tube presents emergency department today with complaints of rectal pain. He was seen yesterday in the emergency department for same complaint. At that time he underwent CT scanning of his abdomen which was notable for nonspecific soft tissue prominence around the anorectal soft tissues concerning for infectious versus inflammatory versus neoplastic etiologies. During his ER visit yesterday he had an appreciable stool ball noted per ER staff. Enemas and manual disimpaction was attempted but patient opted to try to empty his bowels at home after his ER visit. He presents back today with continued rectal pain. Further disimpaction was attempted but unsuccessful. Patient was ultimately treated in the emergency department for mild UTI and proctitis. He was treated with doxycycline and cefdinir yesterday, but given inability to clear his bowels, he was admitted for further evaluation. Otherwise patient is stable. Labs are at his baseline. Creatinine today at 2.6 which is not too far from patient's baseline of 2.3. Given his continued constipation and inability to empty his bowels, he will admitted to The hospitalist service. Hospital Course Hospital Course Hospital Course: 78-year-old male, ex urinary tract 3 history of K answered with nephrostomy tube on left and ileal conduit on right. Presented with constipation and abdominal pain. Discussed case with ER, request admission for further management. Medicine agreed to admit. Patient did well overnight. Had a bowel movement. Feeling better this morning. Stable to discharge home. Problems addressed as follows: #Constipation Patient reports swelling of valve shortly after nephrostomy tube placed approximately 3 days ago. Reports last bowel movement approximately 3 days ago. On admission had the urge to have bowel movement and had 3 small stool balls. Continue robust bowel regimen during admission. Had large bowel movement after admission. Slept well overnight. Stable to discharge home to continue bowel regimen. #CKD stage IV #History of bladder cancer History of total cystectomy. Ilealconduit and nephrostomy tube both functioning appropriately. Having good output. No concern for infection at this time. #Diabetes mellitus: Treated with sliding scale insulin during admission. Transition back to home regimen at discharge with oral diabetic agents. #HLD: Continue statin medication Exam Data for Last 24 hours Vital signs and Labs for Last 24 Hours: Temp Pulse Resp BP Pulse Ox O2 Del Method 98.4 F 63 17 111/61 96 Room Air 03/18/24 04:00 03/18/24 04:00 03/18/24 04:00 03/18/24 04:00 03/18/24 04:00 03/18/24 06:53 Laboratory Results - last 24 hr 03/17/24 21:25: POC Glucose 107 03/17/24 21:35: WBC 8.7 D, RBC 4.45 L, Hgb 11.6 L, Hct 35.8 L, MCV 80.5, MCH 26.1 L, MCHC 32.4, RDW 17.2, Plt Count 239, MPV 8.9, Neut % (Auto) 72.3, Lymph % (Auto) 19.1, Garrard % (Auto) 6.4, Eos % (Auto) 1.7, Baso % (Auto) 0.6, Neut # (Auto) 6.3, Lymph # (Auto) 1.7, Garrard # (Auto) 0.6, Eos # (Auto) 0.2, Baso # (Auto) 0.1, Sodium 136, Potassium 4.9, Chloride 104, Carbon Dioxide 23, Anion Gap 13.9, BUN 33 H, Creatinine 2.60 H, Estimated Creat Clear 36, Estimated GFR 24 L, Est GFR ( Amer) 29 L, Glucose 101 H, Calcium 9.4, Total Bilirubin 1.0, AST 61 H D, ALT 37 D, Alkaline Phosphatase 125, Total Protein 6.9, Albumin 3.8, Globulin 3.1, Albumin/Globulin Ratio 1.2 I & O for Last 24 hours: Intake & Output 03/15/24 03/16/24 03/17/24 03/18/24 23:59 23:59 23:59 23:59 Intake Total 0 / 0 Output Total 0 / 0 0 / 0 Balance 0 / 0 0 / 0 Weight 106.095 kg 106.1 kg Constitutional Constitutional: no acute distress, obese and chronically ill appearing *Routine HEENT Exam Head: Present normocephalic Eye: Present EOMI and PERRL ENT: Present mucous membranes moist *Routine Neck Exam Neck: Present supple; Absent lymphadenopathy *Routine Respiratory Exam Respiratory: Present CTA bilaterally; Absent rhonchi, wheezes or crackles *Routine Cardiovascular Exam Cardiovascular: Present RRR *Routine Abdominal Exam Abdominal: Present soft and normoactive bowel sounds; Absent tenderness Comments: Ileal conduit in right lower abdomen, nephrostomy tube left flank. Both draining light yellow urine *Routine Rectal Exam Patient deferred: visual exam *Routine Exam Patient deferred: penile exam *Routine Extremities Exam Extremities: Absent cyanosis, clubbing or edema *Routine Skin Exam Skin: Present warm; Absent rash *Routine Neurological Exam Neurological: Present alert, oriented X3 and moving all extremities; Absent altered mental status Results Data Completed and Pending Labs on day of discharge: Labs from last 24 hours 03/17/24 03/17/24 21:35 21:25 WBC 8.7 D RBC 4.45 L Hgb 11.6 L Hct 35.8 L MCV 80.5 MCH 26.1 L MCHC 32.4 RDW 17.2 Plt Count 239 MPV 8.9 Neut % (Auto) 72.3 Lymph % (Auto) 19.1 Garrard % (Auto) 6.4 Eos % (Auto) 1.7 Baso % (Auto) 0.6 Neut # (Auto) 6.3 Lymph # (Auto) 1.7 Garrard # (Auto) 0.6 Eos # (Auto) 0.2 Baso # (Auto) 0.1 Sodium 136 Potassium 4.9 Chloride 104 Carbon Dioxide 23 Anion Gap 13.9 BUN 33 H Creatinine 2.60 H Estimated Creat Clear 36 Estimated GFR 24 L Est GFR ( Amer) 29 L Glucose 101 H POC Glucose 107 Calcium 9.4 Total Bilirubin 1.0 AST 61 H D ALT 37 D Alkaline Phosphatase 125 Total Protein 6.9 Albumin 3.8 Globulin 3.1 Albumin/Globulin Ratio 1.2 DS: Diagnosis Discharge Diagnosis (1) Impaction of colon: Status: Acute Code(s): K56.49 - Other impaction of intestine (2) Acute UTI: Status: Acute Code(s): N39.0 - Urinary tract infection, site not specified (3) Constipation: Status: Acute Code(s): K59.00 - Constipation, unspecified Qualifiers: Constipation type: other constipation type Qualified Code(s): K59.09 - Other constipation (4) Inflammation of the rectum: Status: Acute Code(s): K62.89 - Other specified diseases of anus and rectum (5) Diabetes: Status: Acute Code(s): E11.9 - Type 2 diabetes mellitus without complications Qualifiers: Diabetes mellitus complication status: with other specified complication Diabetes mellitus snf insulin use: 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 goods 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 Diabetes mellitus type: type 2 Qualified Code(s): E11.69 - Type 2 diabetes mellitus with other specified complication; 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 of 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 (6) CKD (chronic kidney disease), stage IV: Status: Acute Code(s): N18.4 - Chronic kidney disease, stage 4 (severe) (7) H/O total cystectomy: Status: Acute Code(s): Z90.6 - Acquired absence of other parts of urinary tract (8) Hx of bladder cancer: Status: Acute Code(s): Z85.51 - Personal history of malignant neoplasm of bladder Meds Home Medications and Allergies Home Medications Medication Instructions Recorded Confirmed Type allopurinol 100 mg tablet 100 mg PO DAILY 11/29/23 03/18/24 History atorvastatin 20 mg tablet 20 mg PO HS 11/29/23 03/18/24 History metoprolol succinate 50 mg 50 mg PO DAILY 11/29/23 03/18/24 History tablet,extended release 24 hr quetiapine 50 mg tablet 50 mg PO HS 11/29/23 03/18/24 History polyethylene glycol 3350 17 17 g PO DAILY 03/17/24 03/18/24 History gram/dose oral powder (ClearLax) cefdinir 300 mg capsule 300 mg PO BID 03/18/24 03/18/24 History ferrous sulfate 325 mg (65 mg 325 mg PO DAILY 03/18/24 03/18/24 History iron) tablet (FeroSul) magnesium oxide 400 mg (241.3 mg 400 mg PO DAILY 03/18/24 03/18/24 History magnesium) tablet oxycodone-acetaminophen 7.5 mg-325 1 tab PO Q6HP PRN Moderate Pain 03/18/24 03/18/24 History mg tablet (Scale Score 5-6) sennosides 8.6 mg-docusate sodium 1 tab PO BID 30 days #60 tabs 03/18/24 Rx 50 mg tablet (Stimulant Laxative Plus) New Prescriptions to Start Prescriptions: sennosides-docusate sodium [Stimulant Laxative Plus] Darrell Kovacs Allergies Allergy/AdvReac Type Severity Reaction Status Date / Time No Known Allergies Allergy Verified 11/28/23 22:20 Discharge Plan Disposition Patient Disposition: Home, Self-Care Condition: Fair Follow up Plan Follow up with: Marquita Gutierrez APRN [Primary Care Provider] - 03/22/24 11:30 am Prescriptions/Medication Reconciliation: New sennosides-docusate sodium [Stimulant Laxative Plus] 8.6-50 mg Tablet 1 tab PO BID 30 Days Qty: 60 0RF Rx Instructions: goal 1-2 BM per day, switch to PRN if having daily stools Continued atorvastatin 20 mg tablet 20 mg PO HS metoprolol succinate 50 mg tablet extended release 24 hr 50 mg PO DAILY Patient Comments: TAKE 1 TABLET BY MOUTH ONCE DAILY allopurinol 100 mg tablet 100 mg PO DAILY quetiapine 50 mg tablet 50 mg PO HS polyethylene glycol 3350 [ClearLax] 17 gram/dose Powder 17 g PO DAILY magnesium oxide 400 mg (241.3 mg magnesium) tablet 400 mg PO DAILY Patient Comments: TAKE 1 TABLET BY MOUTH ONCE DAILY ferrous sulfate [FeroSul] 325 mg (65 mg iron) tablet 325 mg PO DAILY Patient Comments: TAKE 1 TABLET BY MOUTH ONCE DAILY WITH BREAKFAST oxycodone-acetaminophen 7.5-325 mg tablet 1 tab PO Q6HP PRN (Reason: Moderate Pain (Scale Score 5-6)) Patient Comments: TAKE 1 TABLET BY MOUTH EVERY 6 HOURS NEEDED cefdinir 300 mg capsule 300 mg PO BID Problem Reconciliation Problems Reviewed?: Yes Patient Discharge Instructions ACTIVITY: Continue current activity DIET: continue same diet Patient Instructions: DI for Constipation Providers Primary Care Provider: Marquita Gutierrez Admit Provider: Darrell Kovacs Attending Provider: Darrell Kovacs
[2024-03-18 07:31] VITALS: BP 128/70; PULSE 61; RESP 18; TEMP 36.6; O2SAT 99
--- NOTE | 2024-03-18 08:09 | HMH.PHAINT1 ---
Pharmacy Intervention Comments: MEDICATION RECONCILIATION COMPLETED ON PATIENT USING EXTERNAL FILL HISTORY FROM PHARMACY. -ALEXIA PEMBERTON, STEPHAND
[2024-03-18] MEDS: DOXYCYCLINE HYCL 100 MG TABLET PO (09:24)
[2024-03-18] MEDS: POLYETHYLENE GLYCOL 3350 17 GM PACKET PO (09:25)
[2024-03-18] MEDS: SENNOSIDES 8.6MG/DOCUSATE 50MG TABLET 1 TAB PO (09:25)
[2024-03-18 12:17] LABS: POC Glucose,Bedside 163 (70-110)
--- NOTE | 2024-03-19 13:04 | CARE MANAGER ---
Called and spoke with patient's spouse regarding recent discharge. She stated that patient was having a good day today and was aware of scheduled f/u appt. No concerns voiced at time of call.
--- NOTE | 2024-03-22 17:44 | EXP.EVENT.NO ---
Pablo Stroud MD: I was notified of the patient's urine culture result growing unspecified yeast while on shift today. This patient was contacted while on shift, he is reportedly doing well with the exception of some ongoing rectal pain, saw urology earlier this week, is currently completing course of antibiotic therapy. No urinary complaints at this time although Davis catheter remains in place. This patient had admission to the hospital, I was not part of his ED visit, thus several degrees of unfamiliarity and inability to accurately assess this patient over the phone. I personally contacted the patient's and spoke with her about his clinical status. There was initial consideration of course of fluconazole, however after shared decision making I will elect to defer this decision to his urologist, will contact urology for their recommendations of management of this urine culture results, and return to the ED should he develop any new or worsening symptoms
== END 2024-03-18 13:46 | disposition home or self-care (01) ==
LOC: ER 20:05 → 2ND 21:11
PROVIDERS: Nurse Practitioner Acute Care; Admitting Provider Internal Medicine Adolescent Medicine; Emergency Provider Emergency Medicine; PCP Nurse Practitioner; Visit Provider Internal Medicine Adolescent Medicine
DX: K56.49 Other impaction of intestine; N39.0 Urinary tract infection, site not specified; E11.22 Type 2 diabetes mellitus with diabetic chronic kidney disease; Z79.4 Long term (current) use of insulin; N18.4 Chronic kidney disease, stage 4 (severe); Z90.6 Acquired absence of other parts of urinary tract; Z85.51 Personal history of malignant neoplasm of bladder; Z79.899 Other long term (current) drug therapy; Z93.6 Other artificial openings of urinary tract status
CPT/HCPCS: 80053; 82962; 85025; 99285; G0378

== ENCOUNTER 2024-10-30 09:29 | Emergency (ER) | payer MEDICARE, BC, SELFPAY ==
[2024-10-30 09:57] VITALS: BP 168/82; PULSE 74; RESP 18; TEMP 36.6; O2SAT 97; BMI 24.4
[2024-10-30 10:00] VITALS: BP 186/94; PULSE 74; O2SAT 98
[2024-10-30 10:30] VITALS: BP 195/97; PULSE 74; O2SAT 98
[2024-10-30 11:00] VITALS: BP 193/86; PULSE 66; O2SAT 96
--- NOTE | 2024-10-30 11:09 | CT_ITS ---
PROCEDURE INFORMATION: Exam: CT Abdomen And Pelvis With Contrast Exam date and time: 10/30/2024 12:17 PM Age: 79 years old Clinical indication: Condition or disease; Cancer; Prior surgery; Surgery date: 6+ months; Surgery type: Bladder removed; Additional info: Bladder cancer S/P intervention abd pain, TECHNIQUE: Imaging protocol: Computed tomography of the abdomen and pelvis with contrast. Radiation optimization: All CT scans at this facility use at least one of these dose optimization techniques: automated exposure control; mA and/or kV adjustment per patient size (includes targeted exams where dose is matched to clinical indication); or iterative reconstruction. Contrast material: ISOVUE; Contrast volume: 75 ml; Contrast route: IV; COMPARISON: CT ABDOMEN PELVIS W CON 03/16/2024 4:29 PM FINDINGS: Liver: Hepatic cirrhosis but no focal liver lesion identified. Gallbladder and biliary ducts: Cholelithiasis but no CT evidence of cholecystitis. Pancreas: The pancreas is normal in appearance. No evidence of pancreatic ductal dilatation. Spleen: Splenomegaly. The spleen measures about 15.9 cm. Adrenal glands: The adrenal glands are normal in appearance. Kidneys and ureters: There is a diverting urostomy in the right lower quadrant. Severe right-sided hydronephrosis and right hydroureter, unchanged from the prior study. No visible obstructing right ureteral calculus. The right lower quadrant urostomy does not appear obstructed. There is a nephrostomy tube well-positioned in the left collecting system. Stable bilateral renal cysts, with the largest cyst in the right kidney measuring about 5.7 cm. Several small nonobstructing calculi in the calices of the left kidney. No evidence of left hydronephrosis or left hydroureter. Stomach and bowel: The small bowel loops are not thickened and are nondilated. There is colonic diverticulosis but no evidence of diverticulitis. Appendix: The appendix is normal in appearance. No evidence of appendicitis. Intraperitoneal space: Unremarkable. No free air. No significant fluid collection. Vasculature: Unremarkable. No abdominal aortic aneurysm. Lymph nodes: Unremarkable. No enlarged lymph nodes. Urinary bladder: Status post resection of the urinary bladder. Reproductive: Unremarkable as visualized. Bones/joints: No acute osseous lesions. Soft tissues: Small fat containing left inguinal hernia. Small fat containing periumbilical hernia. IMPRESSION: 1. Severe right hydronephrosis and right hydroureter, unchanged from prior imaging. 2. Stable left nephrostomy tube. 3. Right lower quadrant diverting urostomy. No evidence of a bowel obstruction. 4. Hepatic cirrhosis and splenomegaly. 5. Cholelithiasis but no CT evidence of cholecystitis. 6. Colonic diverticulosis but no evidence of diverticulitis.
--- NOTE | 2024-10-30 11:11 | ED_ITS ---
Discharge Plan Disposition Patient Disposition: Home, Self-Care Prescriptions Prescriptions: New levofloxacin 750 mg tablet 750 mg PO DAILY 10 Days Qty: 10 0RF ondansetron 4 mg tablet,disintegrating 4 mg PO Q8H PRN (Reason: nausea and vomiting) 4 Days Qty: 12 0RF No Action atorvastatin 20 mg tablet 20 mg PO HS metoprolol succinate 50 mg tablet extended release 24 hr 50 mg PO DAILY Patient Comments: TAKE 1 TABLET BY MOUTH ONCE DAILY allopurinol 100 mg tablet 100 mg PO DAILY quetiapine 50 mg tablet 50 mg PO HS polyethylene glycol 3350 [ClearLax] 17 gram/dose Powder 17 g PO DAILY magnesium oxide 400 mg (241.3 mg magnesium) tablet 400 mg PO DAILY Patient Comments: TAKE 1 TABLET BY MOUTH ONCE DAILY ferrous sulfate [FeroSul] 325 mg (65 mg iron) tablet 325 mg PO DAILY Patient Comments: TAKE 1 TABLET BY MOUTH ONCE DAILY WITH BREAKFAST oxycodone-acetaminophen 7.5-325 mg tablet 1 tab PO Q6HP PRN (Reason: Moderate Pain (Scale Score 5-6)) Patient Comments: TAKE 1 TABLET BY MOUTH EVERY 6 HOURS NEEDED cefdinir 300 mg capsule 300 mg PO BID sennosides-docusate sodium [Stimulant Laxative Plus] 8.6-50 mg Tablet 1 tab PO BID 30 Days Qty: 60 0RF Rx Instructions: goal 1-2 BM per day, switch to PRN if having daily stools Referrals Follow up/Referrals: Marquita Gutierrez APRN [Primary Care Provider] - See instructions Activity Restrictions/Add. Instructions Additional Instructions/Restrictions: At this time it was felt you are safe to be discharged home. If new or worsening symptoms please do not hesitate to return the emergency department. Please take your medications as prescribed and follow-up with your urologist as discussed within the next 1 to 2 weeks. Clinical Impressions Clinical Impression: Complicated UTI (urinary tract infection) Instructions Patient Instructions: Urinary Tract Infection Print Language Print Language: Uzbek Discharge ED Provider: Gerry French General Adult HPI General Chief complaint: Nausea/Vomiting/Diarrhea Stated complaint: stomach pain,bitter taste,vomiting Time Seen by Provider: 10/30/24 10:48 Mode of Arrival: Ambulatory Source of Information: Patient Limitations: No Limitations Description of Symptoms (Recalled from ER Triage Doc. by RN): ABD pain N/V cough Bitter tast in mouth. History of Present Illness HPI narrative: Patient is a 79-year-old male past medical history of dementia, bladder cancer status post laparoscopic surgical intervention, left-sided nephrostomy tube placement, right lower quadrant urostomy placement who presents emergency department for evaluation of abdominal pain, nausea, vomiting, cough, bitter taste in his mouth. Cough has been nonproductive, not severe, no chest pain. The symptoms have been presenting over the last 48 hours, nonbloody vomiting, generalized abdominal pain, normal stooling. He recently was treated for a urinary tract infection with doxycycline per his primary surgeon. No other acute complaints at this time. Related Data Home Medications ?Medication ?Instructions ?Recorded ?Confirmed allopurinol 100 mg tablet 100 mg PO DAILY 11/29/23 03/18/24 atorvastatin 20 mg tablet 20 mg PO HS 11/29/23 03/18/24 metoprolol succinate 50 mg 50 mg PO DAILY 11/29/23 03/18/24 tablet,extended release 24 hr quetiapine 50 mg tablet 50 mg PO HS 11/29/23 03/18/24 polyethylene glycol 3350 17 17 g PO DAILY 03/17/24 03/18/24 gram/dose oral powder (ClearLax) cefdinir 300 mg capsule 300 mg PO BID 03/18/24 03/18/24 ferrous sulfate 325 mg (65 mg 325 mg PO DAILY 03/18/24 03/18/24 iron) tablet (FeroSul) magnesium oxide 400 mg (241.3 mg 400 mg PO DAILY 03/18/24 03/18/24 magnesium) tablet oxycodone-acetaminophen 7.5 mg-325 1 tab PO Q6HP PRN Moderate Pain 03/18/24 03/18/24 mg tablet (Scale Score 5-6) Previous Rx's ?Medication ?Instructions ?Recorded sennosides 8.6 mg-docusate sodium 1 tab PO BID 30 days #60 tabs 03/18/24 50 mg tablet (Stimulant Laxative Plus) levofloxacin 750 mg tablet 750 mg PO DAILY Complicated UTI 10 10/30/24 days #10 tabs ondansetron 4 mg disintegrating 4 mg PO Q8H PRN nausea and 10/30/24 tablet vomiting 4 days #12 tabs Allergies Allergy/AdvReac Type Severity Reaction Status Date / Time No Known Allergies Allergy Verified 11/28/23 22:20 [facility] Disclaimer: The information contained in this section may have been updated after the patient was seen, as this information can be updated by other users. Medical History (Updated 10/30/24 @ 13:51 by Gerry French MD) Skin cancer Diabetes mellitus type 2, controlled Bladder cancer Dementia Surgical History History of urostomy Family History (Updated 11/29/23 @ 02:21 by Keshia Poe RN) Mother Dementia Father Dementia Social History (Updated 03/17/24 @ 21:35 by Keshia Poe RN) Smoking Status: Former smoker tobacco type: cigarettes packs per day: 1 years smoked: 30 smoking status stop date: 30 years ago alcohol intake: never current occupational status: unemployed and retired Travel in the last 8 weeks: None Have you lived/traveled outside [place] in past 30 days?: No Contact w/someone who lives/traveled outside [place] past 30 days?: No Exposure to someone with infectious disease in past 14 days?: No Do you have a fever (greater than 100.4 F or 38 C)?: No Have you tested positive for COVID-19: No Exposed to someone with COVID-19 in past 14 days?: No Do you have a sore throat?: No Do you have a cough?: No Do you have any weakness?: Yes Do you have any diarrhea?: No Are you experiencing any unusual bleeding?: No Do you have any muscle aches/pain?: No Do you have any abdominal pain?: No Are you experiencing loss of taste or smell?: No Other Medical History Have you received the Flu Vaccine for this season: No Have you received the Pneumonia Vaccine: No ROS Obtained: Yes Systems reviewed as appropriate & no additional complaints except as documented Physical Exam General General appearance: alert and in no apparent distress Head Head exam: atraumatic and normocephalic Eye Eye exam: Present PERRL ENT ENT exam: Present mucous membranes moist Neck Neck exam: Present normal inspection Chest Chest inspection: Present normal inspection and symmetric chest wall rise Respiratory Respiratory exam: Present normal lung sounds bilaterally; Absent respiratory distress Cardiovascular Cardiovascular exam: Present regular rate and normal rhythm Abdominal Exam Abdominal exam: Present soft, tenderness (Mild, diffuse, nonfocal) and other (Left nephrostomy tube in place, right lower quadrant urostomy in place) Extremities Exam Extremities exam: Present normal inspection Neurological Exam Neurological exam: Present alert Psychiatric Psychiatric exam: Present normal affect Skin Skin exam: Present warm and dry Medical Decision Making Medical Records Screening: Per USPSTF and CDC recommendations, given the prevalence of disease in our region, it is our hospital?s policy to screen for HIV and viral Hepatitis for all patients aged 18 and over and those with ongoing risk factors. Andres Inquiry Pt receiving controlled substance: No Vital Signs: 10/30/24 09:57 10/30/24 10:00 10/30/24 10:30 Temperature 97.8 F Temperature Source Oral Pulse Rate 74 74 Pulse Rate [Right Radial] 74 Respiratory Rate 18 Blood Pressure 186/94 H 195/97 H Blood Pressure [Right Radial Artery] 168/82 H Blood Pressure Mean 124 129 Blood Pressure Mean [Right Radial Artery] 110 02 Sat by Pulse Oximetry 97 98 98 Oxygen Delivery Method Room Air Room Air Room Air 10/30/24 11:00 Temperature Temperature Source Pulse Rate 66 Pulse Rate [Right Radial] Respiratory Rate Blood Pressure 193/86 H Blood Pressure [Right Radial Artery] Blood Pressure Mean 133 Blood Pressure Mean [Right Radial Artery] 02 Sat by Pulse Oximetry 96 Oxygen Delivery Method Room Air Lab Data Lab Results 10/30/24 09:54: WBC 16.3 H, RBC 5.01, Hgb 12.3 L, Hct 39.8 L, MCV 79.4 L, MCH 24.6 L, MCHC 30.9 L, RDW 16.5, Plt Count 186, MPV 12.0 H, Neut % (Auto) 86.8 H, Lymph % (Auto) 6.1 L, [place] % (Auto) 5.9, Eos % (Auto) 0.4, Baso % (Auto) 0.2, N eut # (Auto) 14.1 H, Lymph # (Auto) 1.0, [place] # (Auto) 1.0, Eos # (Auto) 0.1, Baso # (Auto) 0.0, Total Counted 100, Neutrophils % (Manual) 88 H, Lymphocytes % (Manual) 8 L, Monocytes % (Manual) 4, Platelet Estimate Normal, Hypochromasia 2+, Microcytosis 1+, Sodium 135 L, Potassium 5.1, Chloride 110 H, Carbon Dioxide 20 L, Anion Gap 10.1, BUN 32 H, Creatinine 2.40 H, Estimated Creat Clear 31, E stimated GFR 26 L, Est GFR ( Amer) 32 L, Glucose 177 H, Calcium 9.1, T otal Bilirubin 2.1 H, AST 31, ALT 26, Alkaline Phosphatase 101, Total Protein 6.6, Albumin 3.9, Globulin 2.7, Albumin/Globulin Ratio 1.4, Lipase 80, HIV Ag/Ab Combo Qual Negative 10/30/24 11:11: Troponin I < 0.01 10/30/24 11:13: SARS-CoV-2 (PCR) Not detected, Influenza A Untype (PCR) Not detected, Influenza Type B (PCR) Not detected 10/30/24 12:06: Urine Color Yellow, Urine Appearance Turbid, Urine pH 7.5, Ur Specific [place] 1.020, Urine Protein 2+ A, Urine Glucose (UA) Negative, Urine Ketones Negative, Urine Blood 2+ A, Urine Nitrate Positive A, Urine Bilirubin Negative, Urine Urobilinogen 0.2, Ur Leukocyte Esterase 2+ A, Urine RBC Occasional, Urine WBC Tntc, Ur Squamous Epith Cells Occasional, Amorphous Sediment 2+, Urine Bacteria 2+ 10/30/24 12:30: Urine Color Yellow, Urine Appearance Cloudy, Urine pH 6.0, Ur Specific [place] 1.025, Urine Protein 2+ A, Urine Glucose (UA) Negative, Urine Ketones Negative, Urine Blood 3+ A, Urine Nitrate Negative, Urine Bilirubin Negative, Urine Urobilinogen 0.2, Ur Leukocyte Esterase 2+ A, Urine RBC 50-100, Urine WBC 20-50, Ur Squamous Epith Cells Occasional, Amorphous Sediment Trace, Urine Bacteria 1+, Urine Yeast 1+ 10/30/24 09:54 10/30/24 09:54 Orders (Tests/Meds): ED MEDICATIONS Generic Name Dose Route Start Last Admin Trade Name Freq PRN Reason Stop Dose Admin Acetaminophen 1,000 mg 10/30/24 11:11 10/30/24 11:19 Acetaminophen 500mg Tab PO 10/30/24 11:12 1,000 mg ONCE ONE Administration Iopamidol 75 ml 10/30/24 12:24 10/30/24 12:25 Iopamidol-370 (76%);100ml Bottle IV 10/30/24 12:25 75 ml ONCE ONE Administration Levofloxacin 750 mg 12/25/24 13:46 Levofloxacin 750 Mg Tablet PO 10/30/24 13:47 ONCE ONE Ondansetron HCl 4 mg 10/30/24 11:11 10/30/24 11:20 Ondansetron 4mg Odt SL 10/30/24 11:12 4 mg ONCE ONE Administration Sodium Chloride 10 ml 10/30/24 12:24 10/30/24 12:25 Sodium Chloride 0.9% 10ml Syr (Rad Only) IV 11/29/24 12:23 10 ml NEEDED PRN Administration Maintain IV Site ORDERS Category Date Time Status CT abdomen pelvis w con Stat Cat Scan 10/30/24 11:09 Completed CXR --portable [XR chest portable] Stat Exams 10/30/24 11:12 Completed CBC w/Auto Diff [Complete Blood Count Auto Diff] Stat Lab 10/30/24 09:54 Completed CMP [Comprehensive Metabolic Panel] Stat Lab 10/30/24 09:54 Completed HIV Combo Stat Lab 10/30/24 09:54 Completed Hep C Ab with Reflex to RNA Stat Lab 10/30/24 09:54 Received Lipase Stat Lab 10/30/24 09:54 Completed Rapid PCR Covid and Flu A/B Stat Lab 10/30/24 11:13 Completed Trop I [Troponin I] Stat Lab 10/30/24 11:11 Completed UA [Urinalysis and Microscopic] Stat Lab 10/30/24 11:11 Ordered UA [Urinalysis and Microscopic] Stat Lab 10/30/24 12:06 Completed Urinalysis and Microscopic Routine Lab 10/30/24 12:30 Completed Urine Culture Routine Micro 10/30/24 12:30 Received Urine Culture Stat Micro 10/30/24 12:06 Received EKG Request [ECG Request] Stat Y 10/30/24 11:17 Ordered ECG Data Tracing #1: Independently inter by me rate 61, rhythm is regular, axis is borderline leftward deviated, no ST elevation in anatomical contiguous leads, QTc 412. Medical Decision Narrative: In summary patient is 79-year-old male with past medical history described above who presents emergency department for evaluation of vague abdominal pain in the setting of complex anatomy and urologic malignancy with recent or urinary tract infection status post course of doxycycline. Patient is hemodynamically stable nontoxic-appearing upon arrival, afebrile. Differential is broad and includes pancreatitis, worsening malignancy, worsening urinary tract infection, among others. Workup be conducted with hematologic labs, urinalysis from each site, chest x-ray, viral swab, EKG, troponin, CT abdomen pelvis IV contrast. Initial workup reviewed by me, leukocytosis of 16.3 with left shift, stable CKD, no critical electrolyte abnormality. Urinalysis from both sides is frankly infected. CT abdomen pelvis shows severe right hydronephrosis and hydroureter unchanged from prior stable left nephrostomy, right lower quadrant diverting urostomy no acute pathology. I would expect diverting urostomy to be to be frankly infected which would not be of use to me, however nephrostomy tube is also infected. Chest x-ray informally visualized by me, no acute lobar opacities or large pneumothorax. Chest x-ray formal read no acute pathology. Given this patient be treated with a course of levofloxacin due to risk of Pseudomonas with indwelling catheter and will follow-up as soon as he is able with his outpatient urologist and was given multiple return precautions. Patient is not septic appearing and is otherwise well so I do not think that he will benefit from inpatient management at this time although was considered will be deferred first dose administered in the emergency department. Critical Care Critical Care Time Critical Care Time: No
--- NOTE | 2024-10-30 11:12 | XR_ITS ---
PROCEDURE INFORMATION: Exam: XR Chest Exam date and time: 10/30/2024 12:24 PM Age: 79 years old Clinical indication: Cough TECHNIQUE: Imaging protocol: Radiologic exam of the chest. Views: 1 view. COMPARISON: CT ABDOMEN PELVIS W CON 10/30/2024 12:17 PM FINDINGS: Lungs: Unremarkable. No consolidation. Pleural spaces: Unremarkable. No pleural effusion. No pneumothorax. Heart/Mediastinum: Unremarkable. No cardiomegaly. Bones/joints: Unremarkable. IMPRESSION: No acute findings.
[2024-10-30 11:19] LABS: Albumin Level 3.9 g/dl (3.5-5.0); Chloride 110 mmol/L (98-107); Potassium 5.1 mmoL/L (3.5-5.1); Sodium 135 mmol/L (136-145)
[2024-10-30] MEDS: ACETAMINOPHEN 500MG TAB 1000 MG PO (11:19)
[2024-10-30] MEDS: ONDANSETRON 4MG ODT 4 MG SL (11:20)
[2024-10-30 11:21] LABS: Alanine Aminotransferase 26 U/L (12-78); Aspartate Amino Transferase 31 U/L (17-59); Bilirubin,Total 2.1 mg/dl (0.2-1.3); Blood Urea Nitrogen 32 mg/dl (9-20); Creatinine Clearance Estimated 31 mL/min (50-200); Estimated Glomerular Filt Rate 26 ml/min (>60); GFR (African American) 32 ML/MIN (>60)
[2024-10-30 11:22] LABS: Albumin/Globulin Ratio 1.4 (1.1-1.8); Alkaline Phosphatase 101 U/L (38-126); Anion Gap 10.1 mEq/L (5-15); Calcium 9.1 mg/dl (8.4-10.2); Carbon Dioxide 20 mmol/L (22.0-30.0); Globulin 2.7 g/dL (1.3-3.2); Glucose 177 mg/dl (74-100); Lipase 80 U/L (23-300); Total Protein,Serum 6.6 g/dl (6.3-8.2)
--- NOTE | 2024-10-30 11:32 | ECG_ITS ---
APPROVED REPORT Exam: Resting ECG HR:61 bpm ECG Measurements Heart Rate 61 AXES SD 167 P 61 QRSd 94 QRS -25 QT 408 T 55 QTc 412 Conclusion SINUS RHYTHM BORDERLINE LEFT AXIS DEVIATION [QRS AXIS < -20] BORDERLINE ECG Electronically signed by : KETAN DUTTA, 10/30/2024 15:28:49
[2024-10-30 11:33] LABS: Coronavirus 19, PCR Not Detected (NotDetected); Influenza A, PCR Not Detected (NotDetected); Influenza B, PCR Not Detected (NotDetected)
[2024-10-30 11:44] LABS: Hematocrit 39.8 % (42.0-52.0); Hemoglobin 12.3 g/dL (14.1-18.0); Lymphocytes % 6.1 % (10-50); Mean Corpuscular HGB Conc 30.9 g/dL (31.8-35.4); Mean Corpuscular Hemoglobin 24.6 pg (27.0-31.2); Mean Corpuscular Volume 79.4 fl (80-94); Neutrophils % 86.8 % (37.0-80.0); Platelet Count 186 K/mm3 (142-424); Red Blood Count 5.01 M/mm3 (4.60-6.20); Red Cell Distribution Width 16.5 % (11.5-17.5); White Blood Count 16.3 K/mm3 (4.8-10.8)
[2024-10-30 11:45] LABS: Basophils % 0.2 % (0.1-2.0); Eosinophils # 0.1 K/mm3 (0.0-0.4); Eosinophils % 0.4 % (0.1-12.0); Monocytes % 5.9 % (1.7-9.3); Neutrophils # 14.1 K/mm3 (1.8-7.8)
[2024-10-30 11:47] LABS: MANUAL DIFFERENTIAL MANUAL DIFFERENTIAL (MANUAL DIFF)
[2024-10-30 11:56] LABS: Troponin I < 0.01 ng/ml (0.00-0.034)
[2024-10-30 12:13] LABS: Microscopic, Urine URINE MICROSCOPIC (MICROSCOPIC)
[2024-10-30 12:15] LABS: Appearance,Urine TURBID (Clear); Bilirubin,Urine Negative (Negative); Blood, Urine 2+ (Negative); Glucose,Urine (UA) Negative (Negative); Ketones,Urine Negative (Negative); Leukocyte Esterase,Urine 2+ (Negative); Nitrate,Urine POSITIVE (Negative); PH,Urine 7.5 (5.0-8.5); Protein,Urine 2+ (Negative); Urobilinogen,Urine 0.2 EU/dl (0.2)
[2024-10-30 12:16] LABS: Color,Urine YELLOW (Yellow)
[2024-10-30 12:25] LABS: HIV Combo NEGATIVE (Negative)
[2024-10-30] MEDS: IOPAMIDOL-370 (76%);100ML BOTTLE 75 ML IV (12:25)
[2024-10-30] MEDS: SODIUM CHLORIDE 0.9% 10ML SYR (RAD ONLY) 10 ML IV (12:25)
[2024-10-30 12:26] LABS: RBC,Urine Occasional #/hpf (0-3); WBC,Urine TNTC #/hpf (0-3)
[2024-10-30 12:27] LABS: Amorphous Sediment,Urine 2+ /lpf; Bacteria,Urine 2+ /lpf; Squamous Epithelial Cell,Urine Occasional #/hpf (0-5)
[2024-10-30 12:34] LABS: Hypochromasia 2+; Lymphocytes % 8 % (10-50); Microcytosis 1+; Monocytes % 4 % (2-9); Neutrophils % 88 % (42-76); Platelet Estimate Normal; Total Cells Counted 100
[2024-10-30 12:41] LABS: Microscopic, Urine URINE MICROSCOPIC (MICROSCOPIC)
[2024-10-30 12:43] LABS: Appearance,Urine CLOUDY (Clear); Bilirubin,Urine Negative (Negative); Blood, Urine 3+ (Negative); Color,Urine YELLOW (Yellow); Glucose,Urine (UA) Negative (Negative); Ketones,Urine Negative (Negative); Leukocyte Esterase,Urine 2+ (Negative); Nitrate,Urine Negative (Negative); Protein,Urine 2+ (Negative); Specific Gravity, Urine 1.025 (1.005-1.030); Urobilinogen,Urine 0.2 EU/dl (0.2)
[2024-10-30 12:55] LABS: WBC,Urine 20-50 #/hpf (0-3)
[2024-10-30 12:56] LABS: RBC,Urine 50-100 #/hpf (0-3); Squamous Epithelial Cell,Urine Occasional #/hpf (0-5)
[2024-10-30 12:57] LABS: Amorphous Sediment,Urine Trace /lpf; Bacteria,Urine 1+ /lpf; Yeast,Urine 1+ /lpf
[2024-10-30] MEDS: levoFLOXacin 750 MG TABLET PO (13:56)
[2024-10-30 14:07] VITALS: BP 168/82; PULSE 76; RESP 20; TEMP 36.7; O2SAT 97
[2024-10-30 14:15] VITALS: BP 193/89; PULSE 66; RESP 16; TEMP 36.6
[2024-11-01 07:08] LABS: HCV Ab Non Reactive (Non Reactive)
--- NOTE | 2024-11-03 09:30 | PC.NURSE ---
URINE CULTURE DISCUSSED WITH DR RAJPUT. CALLED TO CHECK ON PT, SPOKE WITH . STATES PT CONTINUES TO HAVE ABDOMINAL PAIN. INSTRUCTED PT TO FOLLOW-UP WITH UROLOGY, OR TO GO TO ER WHERE PT'S UROLOGIST IS. STATES SHE WILL CONTACT PT'S UROLOGIST. V/U THAT CURRENT ABX WILL NOT TREAT INFECTION. WILL GO TO ER FOR EVALUATION IF PT DOES NOT IMPROVE
== END 2024-10-30 14:16 | disposition home or self-care (01) ==
PROVIDERS: Emergency Provider Emergency Medicine; PCP Nurse Practitioner
DX: N39.0 Urinary tract infection, site not specified (principal); R10.9 Unspecified abdominal pain; R11.2 Nausea with vomiting, unspecified; R05.9 Cough, unspecified; R43.9 Unspecified disturbances of smell and taste
CPT/HCPCS: 71045; 74177; 80053; 81001; 83690; 84484; 85007; 85025; 85027; 86803; 87086; 87088; 87186; 87389; 87636; 93005; 99285; Q0162; Q9967

== ENCOUNTER 2025-05-06 09:42 | Inpatient (IN) | payer MEDICARE, BC, SELFPAY ==
[2025-05-06] VITALS (11 sets, daily range): BP systolic 118–166; BP diastolic 63–90; PULSE 61–92; RESP 15–20; TEMP 36.5–36.7; O2SAT 96–100; BMI 33.2; BMI 31.0
--- NOTE | 2025-05-06 09:44 | ECG_ITS ---
APPROVED REPORT Exam: Resting ECG HR:66 bpm ECG Measurements Heart Rate 66 AXES KS 155 P 50 QRSd 85 QRS -6 QT 414 T 36 QTc 427 Conclusion SINUS RHYTHM LOW QRS VOLTAGE IN PRECORDIAL LEADS [QRS DEFLECTION < 1.0 mV IN CHEST LEADS] BORDERLINE ECG UNCONFIRMED REPORT Electronically signed by : Darrell Desouza, 05/07/2025 21:39:13
--- OUTSIDE RECORDS SUMMARY | 2025-05-06 09:50 | XMS_ITS | Clinical Summary ---
Author Organization [facility] Address [address] [place] [address] Phone Care Team Providers Care Wire Cutter Name Role Phone Mandeep, Nusrat Unavailable Unavailable Conditions or Problems Problem Name Problem Code Onset Date Status Entry Date Provider Comment Standard Description Annotate Infection and inflammatory reaction due to nephrostomy catheter, subsequent encounter(s) 942977907 (SNOMED CT) 04/28 Active 04/28 Nusrat Mandeep Infection and inflammation associated with indwelling urinary catheter Normocytic Anemia 25688967 (SNOMED CT) 04/28 Active 04/28 Nusrat Mandeep Anemia due to decreased red cell production Effusion, right knee M25.461 (ICD-10-CM) 04/28 Active 04/28 Nusrat Mandeep Effusion, right knee Cellulitis of RLE 190594756 (SNOMED CT) 04/28 Active 04/28 Nusrat Mandeep Cellulitis of lower limb Acute renal failure with tubular necrosis 83420733194 9101 (SNOMED CT) 03/12 Resolved 03/12 Nusrat Mandeep Acute renal failure due to tubular necrosis MRSA Sepsis A41.02 (ICD-10-CM) 04/17 Resolved 04/17 Nusrat Mandeep Sepsis due to Methicillin resistant Staphylococcus aureus Pseudomonas infection 53756566 (SNOMED CT) 04/28 Active 04/28 Nusrat Mandeep Bacterial infection caused by Pseudomonas Hx of MRSA infection 552753379 (SNOMED CT) 04/28 Active 04/28 Nusrat Mandeep H/O: infectious disease Obesity, class 2, 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 92110138 (SNOMED CT) 04/17 Active 04/17 Nusrat Mandeep 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) E11.22 (ICD-10-CM) 03/12 Active 03/12 Nusrat Kaufman Type 2 diabetes mellitus with diabetic chronic kidney disease Hyperkalemia 10972948 (SNOMED CT) 03/12 Resolved 03/12 Nusrat Kaufman Hyperkalemia Enterobacter Sepsis 951456567 (SNOMED CT) 03/12 Resolved 03/12 Nusrat Mandeep Sepsis caused by Enterobacter Enterococcal Sepsis 29834418584 46064 (SNOMED CT) 03/12 Resolved 03/12 Nusrat Mandeep Sepsis caused by Enterococcus Candidiasis infection B37.89 (ICD-10-CM) 03/12 Resolved 03/12 Nusrat Mandeep Other sites of candidiasis Candidiasis of urogenital sites 412178078 (SNOMED CT) 03/12 Resolved 03/12 Nusrat Kaufman Candidiasis of urogenital site MRSA Sepsis A41.02 (ICD-10-CM) 04/17 Removed 04/17 Nusrat Kaufman Sepsis due to Methicillin resistant Staphylococcus aureus MRSA infection 577228708 (SNOMED CT) 04/17 Active 04/17 Nusrat Mandeep Methicillin resistant Staphylococcus aureus infection Candidiasis of urogenital sites 385851543 (SNOMED CT) 03/12 Removed 03/12 Nusrat Kaufman Candidiasis of urogenital site Candidiasis infection B37.89 (ICD-10-CM) 03/12 Removed 03/12 Nusrat Mandeep Other sites of candidiasis Acute Pyelonephrit is 61679912 (SNOMED CT) 03/12 Active 03/12 Nusrat Kaufman Acute pyelonephritis Urinary tract infection (UTI) 820015991 (SNOMED CT) 03/12 Active 03/12 Nusrat Mandeep Recurrent urinary tract infection Enterococcal Sepsis 19004375213 33535 (SNOMED CT) 03/12 Removed 03/12 Nusrat Mandeep Sepsis caused by Enterococcus Obstructive uropathy with infection N13.6 (ICD-10-CM) 03/12 Active 03/12 Nusrat Kaufman Pyonephrosis Enterobacter Sepsis 016986940 (SNOMED CT) 03/12 Removed 03/12 Nusrat Kaufman Sepsis caused by Enterobacter Acute renal failure with tubular necrosis 91182334626 9101 (SNOMED CT) 03/12 Removed 03/12 Nusrat Kaufman Acute renal failure due to tubular necrosis Hyperkalemia 25429338 (SNOMED CT) 03/12 Removed 03/12 Nusrat Kaufman Hyperkalemia Neutrophilic leukemoid reaction D72.823 (ICD-10-CM) 03/12 Active 03/12 Nusrat Kaufman Leukemoid reaction Alzheimer's dementia (G30.8) 69140078 (SNOMED CT) 03/12 Active 03/12 Nusrat Kaufman Alzheimer's disease DM II with diabetic CKD, 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) E11.22 (ICD-10-CM) 03/12 Inactive 03/12 Nusrat Kaufman Type 2 diabetes mellitus with diabetic chronic kidney disease Benign Essential Hypertension 91816443 (SNOMED CT) 03/12 Active 03/12 Nusrat Kaufman Benign hypertension nursing home current use of antibiotics 331046342 (SNOMED CT) 03/03 Active 03/03 Cindy Fragoso Drug therapy finding Medications Medication Instructions Start Date Stop Date Generic Name [facility] Provider SACCHAROMYCES BOULARDII 250 MG CAPS Take 1 capsule by mouth twice a day saccharomyces boulardii 41629234962 Marychuy Shelley LEVOCETIRIZINE DIHYDROCHLORIDE 5 MG TABS Take 4 tablets by mouth Every Evening for 30 days. 04/28 levocetirizine 99656400746 Marychuy May OMEPRAZOLE 40 MG CPDR Take 1 capsule by mouth once a day omeprazole 28667250650 Marychuy May DONEPEZIL HCL 10 MG TABS Take 1 tablet by mouth every night donepezil 63519846932 Marychuy May METOPROLOL SUCCINATE ER 50 MG PG30G-TGL Take 1 tablet by mouth once a day metoprolol succinate 16579958858 Marychuy Shelley PEG 3350 17 GM PACK Take 17 gram by mouth once a day 04/28 polyethylene glycol 3350 49341541911 Marychuy Shelley HYDROXYZINE HCL 25 MG TABS 1 tablet by mouth hydroxyzine hcl 40240170277 Marychuy Shelley QUETIAPINE FUMARATE 50 MG TABS Take 1 tablet by mouth every night 04/28 quetiapine 18476380725 Marychuy Shelley ACETAMINOPHEN 325 MG TABS Take 2 tablet by mouth every four hours as needed 04/28 acetaminophen 20882609756 Marychuy Shelley ALLOPURINOL 100 MG TABS Take 1 tablet by mouth once a day allopurinol 09020664759 Marychuy Shelley ATORVASTATIN CALCIUM 20 MG TABS Take 1 tablet by mouth once a day atorvastatin 72478987803 Marychuy Shelley MAGNESIUM OXIDE 400 MG TABS Take 1 tablet by mouth once a day 04/28 magnesium oxide 26892071135 Marychuy Shelley TRIAMCINOLONE ACETONIDE 0.5 % CREA Apply 1 pump to skin twice a day as directed 04/28 triamcinolone acetonide 04824944349 Marychuy Shelley brexpiprazole 0.5 mg tablet Take 0.5 mg by mouth every night at bedtime. brexpiprazole Marychuy Shelley HYDROCODONE-ACETAM INOPHEN 5-325 MG TABS Take 1 tablet by mouth Every 8 (Eight) Hours As Needed for Moderate Pain for up to 3 days hydrocodone-acet aminophen 09931222447 Marychuy Shelley LACTULOSE 10 GM/15ML SOLN Take 30 mL by mouth Daily As Needed for constipation lactulose 06981394095 Marychuy Shelley LINEZOLID 600 MG TABS Take 1 tablet by mouth Every 12 (Twelve) Hours for 24 doses linezolid 35230229845 Marychuy Shelley LOPERAMIDE HCL 2 MG CAPS Take 1 capsule by mouth 4 (Four) Times a Day As Needed for Diarrhea for up to 10 days loperamide 74706097284 Marychuy Shelley MELATONIN 5 MG TABS Take 1 tablet by mouth Every Night. melatonin 01190854097 Marychuy March NITROGLYCERIN 0.[address] 1 tablet under the tongue Every 5 (Five) Minutes As Needed for Chest Pain. nitroglycerin 47968226557 Marychuy March sodium zirconium cyclosilicate 10 gram oral powder packet Take 10 g by mouth 2 (Two) Times a Day. Empty entire contents of the packet(s) into a glass with at least 3 tablespoons (45 mL) of water. Stir well and drink immediately; if powder remains in the glass, add water, stir and drink immediately; repeat until no powder remains. Administer other oral medications at least 2 hours before or 2 hours after dose. sodium zirconium cyclosilicate Marychuy March TRIAMCINOLONE ACETONIDE 0.5 % CREA Apply 1 Application topically to the appropriate area as directed 2 (Two) Times a Day. 04/28 triamcinolone acetonide 03212099183 QIE qieuser SACCHAROMYCES BOULARDII 250 MG CAPS Take 1 capsule by mouth 2 (Two) Times a Day. 04/28 saccharomyces boulardii 00599163507 QIE qieuser QUETIAPINE FUMARATE 50 MG TABS TAKE 1 TABLET BY MOUTH ONCE DAILY AT NIGHT 04/28 quetiapine 61083207012 QIE qieuser PEG 3350 17 GM PACK Take 17 g by mouth Daily. 04/28 polyethylene glycol 3350 44821988599 QIE qieuser OMEPRAZOLE 40 MG CPDR Take 1 capsule by mouth once daily 04/28 omeprazole 81370985502 QIE qieuser METOPROLOL SUCCINATE ER 50 MG [id number] Take 1 tablet by mouth once daily 04/28 metoprolol succinate 05817316497 QIE qieuser MAGNESIUM OXIDE 400 MG TABS Take 1 tablet by mouth once daily 04/28 magnesium oxide 40827771767 QIE qieuser LEVOCETIRIZINE DIHYDROCHLORIDE 5 MG TABS Take 4 tablets by mouth Every Evening for 30 days. 04/28 levocetirizine 63498504401 QIE qieuser HYDROXYZINE HCL 25 MG TABS 1 tablet. 04/28 hydroxyzine hcl 85646145443 QIE qieuser DONEPEZIL HCL 5 MG TABS Take 1 tablet by mouth Every Night. 04/28 donepezil 33401452822 QIE qieuser ATORVASTATIN CALCIUM 20 MG TABS Take 1 tablet by mouth once daily 04/28 atorvastatin 66982531399 QIE qieuser ALLOPURINOL 100 MG TABS Take 1 tablet by mouth once daily 04/28 allopurinol 78136222108 QIE qieuser ACETAMINOPHEN 325 MG TABS Take 2 tablets by mouth Every 4 (Four) Hours As Needed for Mild Pain. 04/28 acetaminophen 11151335345 QIE qieuser Medications Administered No information available. Allergies, Adverse Reactions, Alerts No information available. Results Date Name Value Unit Range Flag Description Clinical Lists Update: Prelo ad VAPE_USE Former Tobacco smok ing status ORALTOBACUSE Never Tobacco smoking status SMOK STATUS Former smoker Tob acco smoking status MEDS REVIEW Done Documenta tion of current medications (procedure) Plan of Care Type Date Detail Appointment 10:15 AM Ty whyte MD, [address], [address], [place], [address], Pending order BMP Pending order CBC with Differe ntial Pending order STAT Labs Procedures No information available. Vital Signs No information available. Immunizations No information available. Advance Directives No information available.
--- OUTSIDE RECORDS SUMMARY | 2025-05-06 09:50 | XMS_ITS ---
Author Name Auto Generated, Auto Generated Organization [facility] Address [address] [place] [address] Phone [phone] Care Team Providers Care Asp Net Software Developer Name Role Phone Marquita Gutierrez Terrence Unavailable [phone] [place] Unavailable [phone] Татьяна Blackmon Unavailable [phone] Functional Status No Results Mental Status No Results Allergies and Intolerances Name Onset Date Reaction Severity No Known Allergies (Allergy) MonMay 06 08:46:00 EDT 2024 Encounters Program Name Primary Diagnosis Admission Date/Time Dis charge Date/Time Home-based Hospice MonMay 03 20:00:00 ED T 2024 Medications Medication Directions Start Date End Date linezolid 600 mg tablet 1 Tablet Oral 2 Times Daily for 4 Days Indication: infection for UTI MonMay 06 00:00:00 EDT 2024May 09 23:59:00 EDT 2024 levoFLOXacin 750 mg tablet 1 Tablet Oral Every 2 Days for 4 Days Indication: infection, UTI MonMay 06 00:00:00 EDT 2024May 09 23:59:00 EDT 2024 Dilaudid 2 mg tablet 1 Tablet Oral PRN E very 6 Hours Indication: for pain MonMay 05 00:00:00 EDT 2024 levoFLOXacin 750 mg tablet 1 Tablet Oral Every 2 Days for 4 Days Indication: infection prevention MonMay 05 00:00:00 EDT 2024May 06 08:48:00 EDT 2024 linezolid 600 mg tablet 1 Tablet Oral 2 Times Daily for 4 Days Indication: infection MonMay 05 00:00:00 EDT 2024May 06 08:47:00 EDT 2024 lactulose 10 gram/15 mL oral solution 30 Milliliter Oral PRN Every 1 Day Indication: constipation MonMay 04 00:00:00 EDT 2024 atorvastatin 20 mg tablet 1 Tablet Oral Every 1 Day Indication: high cholesterol MonMay 04:00: EDT 2024 metoprolol succinate ER 50 mg tablet,extended release 24 hr 1 Tablet Oral Every 1 Day Indication: HTN MonMay 04:00:00 EDT 2024 allopurinoL 100 mg tablet 0.5 Tablet Ora l Every 1 Day Indication: gout MonMay 04:00:00 EDT 2024 hydrOXYzine HCL 25 mg tablet 1 Tablet Oral PRN Every 24 Hours Indication: ithcing/sleep take at bedtime as needed MonMay 04:: EDT 2024 melatonin 5 mg tablet 1 Tablet Oral Hour Of Sleep Indication: sleep MonMay 04 00:00:00 EDT 2024 HYDROcodone 5 mg-acetaminophen 325 mg tablet 1 Tablet Oral PRN Every 8 Hours Indication: pain MonMay 04::00 EDT 2024 omeprazole 40 mg capsule,delayed release 1 Capsule Oral Every 1 Day Indication: stomach MonMay 04:00:00 EDT 2024 linezolid 600 mg tablet 1 Tablet Oral 2 Times Daily Indication: infection MonMay 04:00:00 EDT 2024May 05 18:59:00 EDT 2024 levoFLOXacin 750 mg tablet 1 Tablet Oral Every 2 Days Indication: infection prevention MonMay 04 00:00:00 EDT 2024May 05 18:58:00 EDT 2024 fexofenadine 180 mg tablet 1 Tablet Oral Every 1 Day Indication: seasonal allergies MonMay 04:00:00 EDT 2024 loperamide 2 mg tablet 1 Tablet Oral PRN Every 6 Hours Indication: diarrhea MonMay 04:00:00 EDT 2024 Tylenol Extra Strength 500 mg tablet 1 Tablet Oral PRN Every 6 Hours Indication: mild pain MonMay 04 00:00:00 EDT 2024 Problems No Known Problems Social History Social History Observation Description Date Smoking Status Former smoker MonMay 01 00:00 :00 EDT 2024 Sex Male MonAug 10 00:00 :00 EST 1945 Vital Signs Vital Sign Measurement Date Systolic blood pressure 110 mm[Hg] MonMay 05 10:25:00 EDT 2024 Diastolic blood pressure 50 mm[Hg] MonMay 05 10:25:00 EDT 2024 Respiratory rate 20 /min MonMay 05 10:2 5:00 EDT 2024 Heart rate 88 /min MonMay 05 10:25 :00 EDT 2024 Body height 73 [in_i] MonMay 04 08:30 :00 EDT 2024 Body weight 250 [lb_av] MonMay 04 08:30 :00 EDT 2024 Systolic blood pressure 128 mm[Hg] MonMay 04 08:30:00 EDT 2024 Diastolic blood pressure 68 mm[Hg] Sarah May 04 08:30:00 EDT 2024 Respiratory rate 20 /min Sarah May 04 08:3 0:00 EDT 2024 Heart rate 72 /min Dundee May 04 08:30 :00 EDT 2024 Reason for Referral
--- OUTSIDE RECORDS SUMMARY | 2025-05-06 09:51 | XMS_ITS | Referral Summary ---
Author Organization [employer] ([place], [place], [place], [place]) Address [address] [place] [address] Care Team Providers Care Facility Maintenance Supervisor Name Role Phone Unavailable Primary Care Provider Unavailabl e Social History Tobacco Use Types Packs/Day Years Used Date Smoking Tobacco: Never Assessed Food Insecurity Answer Date Recorded Food run out past 12 months Not on file 12/2023 Food did not last past 12 months Not on file 06/07/2024 Employment Answer Date Recorded Help finding and keeping a job Not on file 0 06/07/2024 Family and Community Support Answer Juno e Recorded Help with Day to Day Activities Not on file 06/07/2024 Feeling Lonely or Isolated Not on file 06/07 Educational Attainment Answer Date Dandre rded Speak language other than Zambian at home Not on file 06/07/2024 Want help with school or training Not on file 06/07/2024 Substance Use Answer Date Recorded Used prescription meds for non-medical reasons N ot on file 06/07/2024 Used illegal drugs past 12 months Not on file 06/07/2024 Sex and Gender Information Value Date Recorded Sex Assigned at Not on file Legal Sex Male 10:48 AM CDT Gender Identity Not on file Sexual Orientation Not on file Plan of Treatment Not on file Insurance MEDICARE PART A B [facility]
--- OUTSIDE RECORDS SUMMARY | 2025-05-06 09:51 | XMS_ITS | Data Portability ---
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 Removal of nephroureteral stent on the right and placement of ureteral stent 6 x 28 no string. Anesthesia: Local MAC Complications: None Operative report: After consent is obtained patient is brought to the operative suite where is placed in supine position. Anesthesia is induced. He is carefully placed in the prone position padding all pressure points. He was sterilely prepped and draped in normal fashion. The left percutaneous nephrostomy tube is noted and a wire was advanced through the percutaneous nephrostomy tube and there nephrostomy tube was removed without difficulty. We then over the wire replaced the nephrostomy tube upsizing from 10-12 Faroese by another 12 Faroese percutaneous nephrostomy tube. Placement was confirmed by performing antegrade pyelogram. The tube was secured in place with the curl. It was draining well into a bag. We then addressed the right side which had an right nephroureteral tube. Wire was advanced down into the ileal conduit under fluoroscopic imaging. We removed the indwelling catheter and over the wire placed a 6 x 28 double-J ureteral stent without string into good position under fluoroscopic imaging. Sterile dressings were applied. Anesthesia reversed. Patient was taken to the recovery room in stable condition. [facility] Not available 09/04/2024 16:49:15 Plan of Treatment Reminders Order Date Submit Date Provider Last Modified By Organization Details Last Modified Time Details Appointments None recorded. Lab urinalysis panel, auto 2023 [facility], [address], [address], [place], [address], 13:05:46 culture, urine 2023 [facility], [address] [place] [address], [address], 11:18:12 Referral None recorded. Procedures None recorded. Surgeries None recorded. Imaging US, retroperit oneum, limited 2023 [facility], [address] [place] [address], [address], 07:20:37 Medication Orders oxycodone- acetaminop hen 7.5 mg-325 mg tablet 2023 [facility] [address] [place], [address], 16:50:15 Patient TargetsNo targets recorded. Patient Instructions Encounter Date Encounter Id Patient Instructions Last Modified By Organization Details Last Modified Time 07/25/2024 [id number] learning about depression [facility] Not available 07/29/2024 06:54:50 Reason for Referral None Reported. Results Created Date Observation Date Name Description Value Unit Range Abnormal Flag Note LastModifiedBy Organization Detail LastModifiedTime 10/09/2010/09/2024 URINE CULTU RE klebsiella aerogenes Organi sm: Klebsi usama aeroge trev Not Available [facility] [address] [place] [address], [address], 10/11/2024 11:46:02 10/09/20 10/11/2024 URINE CULTU RE urine culture abnormal ISOLA TE #1 COLON Y COUNT : > 100,0 00 CFU/M L Proba ble Gram Negat junaid Bacil olvin. ID and sensi tivit y in progr ess. See Meservey te Resul t(s) Below Klebs iella aerog margy Not Available [facility] [address] [place] [address], [address], 10/11/2024 11:46:02 10/09/20 24 10/11/2024 URINE CULTU RE ceftazidime <=1 ug/mL susceptib le Not Available [facility] [address] [place] [address], [address], 10/11/2024 11:46:02 10/09/20 24 10/11/2024 URINE CULTU RE ceftriaxone <=1 ug/mL susceptib le Not Available [facility] [address] [place] [address], [address], 10/11/2024 11:46:02 10/09/20 24 10/11/2024 URINE CULTU RE ciprofloxaci n <=0.25 ug/mL susceptib le Not Available [facility] [address] [place] [address], [address], 10/11/2024 11:46:02 10/09/20 24 10/11/2024 URINE CULTU RE gentamicin <=4 ug/mL susceptib le Not Available [facility] [address] [place] [address], [address], 10/11/2024 11:46:02 10/09/20 24 10/11/2024 URINE CULTU RE imipenem 2 ug/mL intermedi ate Not Available [facility] [address] [place] [address], [address], 10/11/2024 11:46:02 10/09/20 24 10/11/2024 URINE CULTU RE levofloxacin <=0.5 ug/mL susceptib le Not Available [facility] [address] [place] [address], [address], 10/11/2024 11:46:02 10/09/20 24 10/11/2024 URINE CULTU RE nitrofuranto in 64 ug/mL intermedi ate Not Available [facility] [address] [place] [address], [address], 10/11/2024 11:46:02 10/09/20 24 10/11/2024 URINE CULTU RE piperacillin /leandro <=16 ug/mL susceptib le Not Available [facility] [address] [place] [address], [address], 10/11/2024 11:46:02 10/09/20 24 10/11/2024 URINE CULTU RE tetracycline <=4 ug/mL susceptib le Not Available [facility] [address] [place] [address], [address], 10/11/2024 11:46:02 10/09/20 24 10/11/2024 URINE CULTU RE tobramycin <=2 ug/mL susceptib le Not Available [facility] [address] [place] [address], [address], 10/11/2024 11:46:02 10/09/20 24 10/11/2024 URINE CULTU RE trimeth/sulf a <=2/38 ug/mL susceptib le Not Available [facility] [address] [place] [address], [address], 10/11/2024 11:46:02 10/09/20 24 10/09/2024 urina lysis panel , auto Unknown Analyte Clean Catch Not Available [facility] [place] [address], [place], [address], 10/09/2024 11:59:26 10/09/20 24 10/09/2024 urina lysis panel , auto Unknown Analyte Yellow Not Available [facility] [place] [address], [place], [address], 10/09/2024 11:59:26 10/09/20 24 10/09/2024 urina lysis panel , auto Unknown Analyte Cloudy Not Available [facility] [address], [place], [address], 10/09/2024 11:59:26 10/09/20 24 10/09/2024 urina lysis panel , auto Unknown Analyte 1.005 Not Available [facility] [address], [place], [address], 10/09/2024 11:59:26 10/09/20 24 10/09/2024 urina lysis panel , auto Unknown Analyte 1.003- 1.035 Not Available [facility] [address], [place], [address], 10/09/2024 11:59:26 10/09/20 24 10/09/2024 urina lysis panel , auto Unknown Analyte 7.0 Not Available [facility] [address], [place], [address], 10/09/2024 11:59:26 10/09/20 24 10/09/2024 urina lysis panel , auto Unknown Analyte 5.0-8. 0 Not Available [facility] [address], [place], [address], 10/09/2024 11:59:26 10/09/20 24 10/09/2024 urina lysis panel , auto Unknown Analyte 500 Mima/ul (++) Not Available [facility] [address], [place], [address], 10/09/2024 11:59:26 10/09/20 24 10/09/2024 urina lysis panel , auto Unknown Analyte Negati ve Not Available [facility] [address], [place], [address], 10/09/2024 11:59:26 10/09/2010/09/2024 urina lysis panel , auto Unknown Analyte Negati ve Not Available [facility] [address], [place], [address], 10/09/2024 11:59:26 10/09/20 24 10/09/2024 urina lysis panel , auto Unknown Analyte Negati ve Not Available [facility] [address], [place], [address], 10/09/2024 11:59:26 10/09/20 24 10/09/2024 urina lysis panel , auto Unknown Analyte Trace Not Available [facility] [address], [place], [address], 10/09/2024 11:59:26 10/09/20 24 10/09/2024 urina lysis panel , auto Unknown Analyte Negati ve Not Available [facility] [address], [place], [address], 10/09/2024 11:59:26 10/09/20 24 10/09/2024 urina lysis panel , auto Unknown Analyte Normal Not Available [facility] [address], [place], [address], 10/09/2024 11:59:26 10/09/20 24 10/09/2024 urina lysis panel , auto Unknown Analyte Normal Not Available [facility] [address], [place], [address], 10/09/2024 11:59:26 10/09/2010/09/2024 urina lysis panel , auto Unknown Analyte Negati ve Not Available [facility] [address], [place], [address], 10/09/2024 11:59:26 10/09/20 24 10/09/2024 urina lysis panel , auto Unknown Analyte Negati ve Not Available [facility] [address], [place], [address], 10/09/2024 11:59:26 10/09/20 24 10/09/2024 urina lysis panel , auto Unknown Analyte Normal Not Available [facility] [address], [place], [address], 10/09/2024 11:59:26 10/09/20 24 10/09/2024 urina lysis panel , auto Unknown Analyte Normal 1 mg/dl Not Available [facility] [address], [place], [address], 10/09/2024 11:59:26 10/09/20 24 10/09/2024 urina lysis panel , auto Unknown Analyte Negati ve Not Available [facility] [address], [place], [address], 10/09/2024 11:59:26 10/09/20 24 10/09/2024 urina lysis panel , auto Unknown Analyte Negati ve Not Available [facility] [address], [place], [address], 10/09/2024 11:59:26 10/09/20 24 10/09/2024 urina lysis panel , auto Unknown Analyte 250 Aubrey/ul Not Available [facility] [address], [place], [address], 10/09/2024 11:59:26 10/09/20 24 10/09/2024 urina lysis panel , auto Unknown Analyte Negati ve Not Available [facility] [address], [place], [address], 10/09/2024 11:59:26 04/17/20 24 04/17/2024 place ment of urete ral stent , percu taneo us, inclu ding diagn ostic nephr ostog yonatan and/o r urete rogra m, imagi ng mj nce; pre-e xisti ng nephr ostom y tract (PROC ) No observ ation record ed. [email or web address] Not Available 2023 13:44:12 04/17/20 24 04/17/2024 place ment of urete ral stent , percu taneo us, inclu ding diagn ostic nephr ostog yonatan and/o r urete rogra m, imagi ng mj nce; pre-e xisti ng nephr ostom y tract (PROC ) No observ ation record ed. [email or web address] Not Available 2023 13:44:13 06/07/20 24 06/07/2024 XR, abdom en, 1 view No observ ation record ed. [email or web address] [facility] [address], [place], [address], 08/27/2024 14:12:56 10/09/20 24 10/09/2024 XR, abdom en, 1 view No observ ation record ed. [email or web address] Not Available 2023 13:06:45 Result Notes None recorded. Problems Name Problem SNOMED Code Status Onset Date Resolution Date Notes Provider Name and Address Organization Details Recorded Time Malignant neoplasm of urinary bladder 512860463 Active 2022 LUCY WEBER JR, MD [address] [place] [address], [address], [facility] 3 10:47:58 Malignant neoplasm of prostate 679698165 Active 2022 LUCY WEBER JR, MD [address] [place] [address], [address], [facility] 3 08:09:48 Hydronephrosis 30727457 Active 2023 LUCY WEBER JR, MD [address] [place] [address], [address], [facility] 4 14:55:52 Problem Notes None recorded. Medical Equipment None Reported. Allergies No known drug allergies Medications Name Sig Start Date Stop Date Status Note LastModified by Organization Details LastModified Time metformin 500 mg tablet Take 1 tablet twice a day by oral route. 03/21 completed Not Available Not Available Not Available metoprolol succinate ER 50 mg tablet,exten ded release 24 hr Take 1 tablet every day by oral route. 03/21 completed Not Available Not Available Not Available amlodipine 5 mg tablet Take 1 tablet every day by oral route. 03/21 completed Not Available Not Available Not Available omeprazole 40 mg capsule,cheo yed release Take 1 capsule every day by oral route. active Not Available Not Available No t Available doxycycline monohydrate 100 mg tablet Take 1 tablet twice a day by oral route. 03/21 completed Not Available Not Available Not Available Macrobid 100 mg capsule Take 1 capsule every 12 hours by oral route. 03/21 completed Not Available Not Available Not Available magnesium oxide 400 mg (241.3 mg magnesium) tablet Take by oral route. active Not Available Not Available No t Available tamsulosin 0.4 mg capsule Take 1 capsule every day by oral route. 03/21 completed Not Available Not Available Not Available Flagyl 500 mg tablet Take 1 tablet every 8 hours by oral route. 03/21 completed Not Available Not Available Not Available doxycycline monohydrate 100 mg capsule Take 1 capsule twice a day by oral route. 2023 active Not Available Not Available Not Avai lable hydrocodone 7.5 mg-acetamino phen 325 mg tablet Take 1 tablet every 6 hours by oral route as needed. 03/21 completed Not Available Not Available Not Available allopurinol 300 mg tablet Take 1 tablet every day by oral route. active Not Available Not Available No t Available cefuroxime axetil 500 mg tablet Take 1 tablet every 12 hours by oral route. 2024 active Not Available Not Available Not Avai lable oxycodone-ac etaminophen 7.5 mg-325 mg tablet Take 1 tablet every 6 hours by oral route as needed. 2023 active Not Available Not Available Not Avai lable Cipro 250 mg tablet Take 1 tablet every 12 hours by oral route. 2023 active Not Available Not Available Not Avai lable cefdinir 300 mg capsule Take 1 capsule every 12 hours by oral route. 06/07 completed Not Available Not Available Not Available Vitamin C 03/21 completed Not Available Not Available Not Available atorvastatin active Not Available Not Available Not Available quetiapine 50 mg tablet Take 1 tablet twice a day by oral route. active Not Available Not Available No t Available Golytely 236 gram-22.74 gram-6.74 gram-5.86 gram oral solution Take 4000 mL by oral route as directed . 03/21 completed Not Available Not Available Not Available ClearLax active Not Available Not Avai lable Not Available Stimulant Laxative Plus 8.6 mg-50 mg tablet Take 2 tablets every day by oral route. active Not Available Not Available No t Available Vitals Date Recorded Body height Body mass index (BMI) Body weight Provider Name and Address Organization Details Last Updated DateTime 04/15/2024 182.88 cm 31.6 kg/m2 528902.02 g Suzanne Cheng [facility] 04/15/2024 11:06:22 Date Recorded Body height Body mass index (BMI) Body weight Provider Name and Address Organization Details Last Updated DateTime 06/07/2024 182.88 cm 31.6 kg/m2 546390.02 g Suyapa Castillo [facility] 06/07/2024 11:19:03 Date Recorded Body height Body mass index (BMI) Body weight Provider Name and Address Organization Details Last Updated DateTime 07/25/2024 182.88 cm 38 kg/m2 408781.86 g Vijay Mauro [facility] 07/25/2024 16:54:52 Date Recorded Body height Body mass index (BMI) Body weight Provider Name and Address Organization Details Last Updated DateTime 10/09/2024 182.88 cm 38 kg/m2 063763.86 g Suzanne Cheng [facility] 10/09/2024 11:45:42 Social History Question Answer Notes LastModified by Organizat ion Details LastModified Time Tobacco Smoking Status Former Smoker Suzanne Cheng [facility] 04/05/2023 16:42:23 When Did You Quit Smoking? 16+yearssinc elastcigaret te [email or web address] Information not available 04/05/2023 What Was The Date Of Your Most Recent Tobacco Screening? 07/25/2024 [email or web address] Information not available 07/25/2024 Sex: Unknown Functional Status None recorded. Mental Status None recorded. Family History Relationship Description Onset Age of this Age Resolved Age Notes LastModified by Organization Details LastModified Time Unspecified Relation Kidney stone [email or web address] Not available 16:41:28 Medical History Condition Response Kidney Stones Y Diabetes Y Arthritis Y Sleep Apnea Y Hypertension Y Past Encounters Encounter ID Performer Location Encounter Start Date Encounter Closed Date Diagnosis/Indication Diagnosis SNOMED-CT Code Diagnosis ICD10 Code Diagnosis Note [id number] JUSTINO ELDRIDGE MD [facility] [address] [place] [address] 04/05/2023 14:49:13 04/07/2023 04:19:40 Malignant neoplasm of urinary bladder 200769697 C67.9 We will contact [facility] for his pathology results. [id number] LUCY WEBER JR, MD [facility] [address] [facility] [facility] [place] [address] 04/17/2023 14:41:14 04/24/2023 04:21:31 Malignant neoplasm of urinary bladder 211539561 C67.9 [id number] LUCY WEBER JR, MD [facility] [address] [place] [address] 06/19/2023 09:51:39 06/19/2023 10:37:51 Malignant neoplasm of urinary bladder 835436101 C67.9 Stricture of ureter 2534 1005 N13.5 Malignant neoplasm of prostate 773725676 C61 [id number] VALENCIA LA MD [facility] [address] [facility],[place] [address] 07/06/2023 13:26:48 07/06/2023 15:38:48 History of malignant neoplasm of bladder 620243533 Z85.51 [id number] ULCY WEBER JR, MD [facility] [address] [place], [place] [id number] 11/23/2023 16:35:51 11/27/2023 04:05:39 Malignant neoplasm of urinary bladder 560877108 C67.9 Malignant neoplasm of prostate 869220865 C61 [id number] LUCY WEBER JR, MD [facility] [address] [place], [place] [address] 01/22/2024 11:37:34 01/22/2024 11:54:21 Malignant neoplasm of urinary bladder 146483558 C67.9 Malignant neoplasm of prostate 664283585 C61 Hydronephrosis 81333856 N13.30 [id number] LUCY WEBER JR, MD SURGERY SCHEDULE [address] [place] [address] 03/13/2024 13:22:33 03/13/2024 13:22:55 Postoperative pain 608239776 G89.18 [id number] LUCY WEBER JR, MD [facility] [address] [address] 03/21/2024 13:11:55 03/25/2024 04:05:31 Malignant neoplasm of urinary bladder 298981783 C67.9 Malignant neoplasm of prostate 038672888 C61 Stricture of ureter 2534 1005 N13.5 [id number] LUCY WEBER JR, MD [facility] [address] [address] 04/15/2024 10:55:30 04/21/2024 04:19:35 Malignant neoplasm of urinary bladder 678765034 C67.9 Hydronephrosis 71079967 N13.30 Malignant neoplasm of prostate 206328373 C61 [id number] LUCY WEBER JR, MD [facility] [address] [address] 06/07/2024 10:52:54 06/10/2024 04:02:56 Malignant neoplasm of urinary bladder 229923276 C67.9 Hydronephrosis 06210427 N13.30 [id number] LUCY WEBER JR, MD [facility] [address] [address] 07/25/2024 16:17:33 07/30/2024 04:31:16 Malignant neoplasm of urinary bladder 993983948 C67.9 Hydronephrosis 66734630 N13.30 Plan for percutaneo us nephrostom y tube change and upsizing on the left with right ureteral stent exchange and internaliz ation. [id number] LUCY WEBER JR, MD SURGERY SCHEDULE [address] [place] [address] 09/04/2024 13:39:04 09/04/2024 13:39:59 Postoperative pain 838645606 G89.18 [id number] LUCY WEBER JR, MD [facility] [address] [address] 10/09/2024 11:09:48 10/15/2024 04:12:37 Acute urinary tract infection 893769495 N39.0 Hydronephrosis 22468680 N13.30 Plan for percutaneo us nephrostom y tube change and upsizing on the left. Will observe right-side d unit without stent at this time. Malignant neoplasm of urinary bladder 534309549 C67.9 Malignant neoplasm of prostate 120177179 C61 Health Concerns Section Related Observation LastModified by Organization Detai ls LastModified Time None Recorded Concern Status LastModified by Organization Details LastModified Time None Recorded Advance Directives Directive None Recorded Payers Insurance Date Sequence Insurance Name Policy Number Policy Starks Covered Member ID Starks Member ID Guarantor Name 03/14/2025 1 [place] Ty Anand [id number] Ty Anand 03/14/2025 2 [place] [id number] Ty Anand [id number] Ty Anand Notes Date Note Type Note Provider Name and Address Organization Details Recorded Time 04/15/2024 text/html Patient is in to day for follow-up of bladder cancer. He underwent robotic assisted laparoscopic radical cystoprostatectomy with bilateral pelvic lymphadenectomy and ileal conduit urinary diversion May 05, 2023. Pathology report shows high-grade urothelial carcinoma stage T2, negative margins, negative lymph nodes. Low-grade prostate cancer is also noted Gurinder score 3+3 equal 6 with focal extraprostatic extension but negative margins, stage T3a. His course was complicated by altered mental status and UTI. Ultimately percutaneous nephrostomy tubes were placed secondary to inadvertent removal of ureteral stents at the time of his altered mental status episode. Patient did have stents internalized during that hospitalization. Patient was recently hospitalized with , and left ureteral obstruction. Bilateral hydronephrosis was noted. Right ureteral stent was internalized. However, they were unable to internalize the left and left percutaneous nephrostomy persists. 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 Scheduled for right internalization and upsizing of left PCN later this week. LUCY WEBER JR, MD [address] [place] [address], [phone], [facility] 04/20/2024 12:05:15 06/07/2024 text/html Patient is in to day for follow-up of bladder cancer. He underwent robotic assisted laparoscopic radical cystoprostatectomy with bilateral pelvic lymphadenectomy and ileal conduit urinary diversion May 05, 2023. Pathology report shows high-grade urothelial carcinoma stage T2, negative margins, negative lymph nodes. Low-grade prostate cancer is also noted Bloomington score 3+3 equal 6 with focal extraprostatic extension but negative margins, stage T3a. His course was complicated by altered mental status and UTI. Ultimately percutaneous nephrostomy tubes were placed secondary to inadvertent removal of ureteral stents at the time of his altered mental status episode. Patient did have stents internalized during that hospitalization. Patient was recently hospitalized with , and left ureteral obstruction. Bilateral hydronephrosis was noted. Right ureteral stent was internalized. However, they were unable to internalize the left and left percutaneous nephrostomy persists. 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 Left percutaneous nephrostomy tube was upsized. Plan for KUB to determine what type of tube there is on the right for potential removal. LUCY WEBER JR, MD [address] [place] [address], [phone], [facility] 06/09/2024 13:29:37 07/25/2024 text/html Patient is in to day for follow-up of bladder cancer. He underwent robotic assisted laparoscopic radical cystoprostatectomy with bilateral pelvic lymphadenectomy and ileal conduit urinary diversion May 05, 2023. Pathology report shows high-grade urothelial carcinoma stage T2, negative margins, negative lymph nodes. Low-grade prostate cancer is also noted Bloomington score 3+3 equal 6 with focal extraprostatic extension but negative margins, stage T3a. His course was complicated by altered mental status and UTI. Ultimately percutaneous nephrostomy tubes were placed secondary to inadvertent removal of ureteral stents at the time of his altered mental status episode. Patient did have stents internalized during that hospitalization. Patient was recently hospitalized with , and left ureteral obstruction. Bilateral hydronephrosis was noted. Right ureteral stent was internalized. However, they were unable to internalize the left and left percutaneous nephrostomy persists. 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 Left percutaneous nephrostomy tube was upsized. Previous KUB is reviewed showing a right percutaneous nephro ureteral tube tube Visit today is being conducted via telehealth using both audio/video. The patient confirms that he/she is physically located in [place] at the time of this visit. Patient expressed understanding of audio/video telehealth as a billable visit and has consented. Patient also expressed understanding that not every condition can be appropriately addressed via telehealth and that this telehealth visit may need to be converted to an in-person visit or may even result in a recommendation to go to the E.R. at the provider s discretion in order to provide the best possible care. LUCY WEBER JR, MD [address] [place] [address], [phone], [facility] 07/29/2024 06:54:53 10/09/2024 text/html Patient is in to day for follow-up of bladder cancer. He underwent robotic assisted laparoscopic radical cystoprostatectomy with bilateral pelvic lymphadenectomy and ileal conduit urinary diversion May 05, 2023. Pathology report shows high-grade urothelial carcinoma stage T2, negative margins, negative lymph nodes. Low-grade prostate cancer is also noted Bloomington score 3+3 equal 6 with focal extraprostatic extension but negative margins, stage T3a. His course was complicated by altered mental status and UTI. Ultimately percutaneous nephrostomy tubes were placed secondary to inadvertent removal of ureteral stents at the time of his altered mental status episode. Patient did have stents internalized during that hospitalization. Patient was recently hospitalized with , and left ureteral obstruction. Bilateral hydronephrosis was noted. Right ureteral stent was internalized. However, they were unable to internalize the left and left percutaneous nephrostomy persists. 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 Right ureteral stent inadvertently came out. Asymptomatic. LUCY WEBER JR, MD [address] [place] [address], [phone], [facility] 10/14/2024 07:20:40
--- OUTSIDE RECORDS SUMMARY | 2025-05-06 09:51 | XMS_ITS | Encounter Summary ---
Author Organization [employer] ([place], [place], [place], [place]) Address [address] [place] [address] Care Team Providers Care Transporter Driver Name Role Phone Unavailable Primary Care Provider Unavailabl e Reason for Referral * Diagnostic X-Ray (Emergency) - Closed Specialty Diagnoses / Procedures Referred By Sarai christie Referred To Contact Diagnoses Calculus of kidney Procedures X-ray abdomen KUB 1 view Lv Jacob Jr., MD [address] [place] [address] [address] [place] [address] Phone: tel: fax: Referral ID Status Reason Start Date Expiration Date Visits Re quested Visits Authorized [id number] Closed 06/07/2024 06/07/2025 1 1 Encounter Details Date Type Department Care Team (Late st Contact Info) Description 06/07/2024 Outside Orders [facility] - [place] [facility] [place] [address] [place] [address] [address] [place] [phone] Lv Jacob Jr., MD [address] [place] [address] [address] [place] [address] Calculus of kidney (Primary Dx) Social History Tobacco Use Types Packs/Day Years [...] Date Dandre rded Speak language other than [place] at home Not on file 06/07/2024 Want [...] on file Sexual Orientation Not on file documented as of this encounter Plan of Treatment Not on file documented as of this encounter Results * X-ray abdomen KUB 1 view (06/07/2024 12:20 PM EDT) Anatomical Region Laterality Modality Abdomen X-Ray 06/07/2024 1:20 PM EDT Impressions 06/07/2024 1:24 PM EDT Bilateral nephrostomy tubes as above. Images reviewed, interpreted, and dictated by Dr. Brandee Ocampo. Transcribed by Khushi Lozano PA-C. Narrative 06/07/2024 1:24 PM EDT SINGLE VIEW ABDOMEN HISTORY: Nephrostomy tubes. ABDOMEN: Single view of the abdomen demonstrates a left percutaneous nephrostomy tube. There is right tubing that is likely an internal/external nephrostomy tube. The bowel gas pattern is unremarkable except for large amount of retained stool. There is no obstruction. There is no abnormal calcification. Procedure Note Brandee Ocampo MD - 06/07/2024 SINGLE VIEW ABDOMEN HISTORY: Nephrostomy tubes. ABDOMEN: Single view of the abdomen demonstrates a left percutaneous nephrostomy tube. There is right tubing that is likely an internal/external nephrostomy tube. The bowel gas pattern is unremarkable except for large amount of retained stool. There is no obstruction. There is no abnormal calcification. IMPRESSION: Bilateral nephrostomy tubes as above. Images reviewed, interpreted, and dictated by Dr. Brandee Ocampo. Transcribed by Khushi Lozano PA-C. Lv Jacob Jr., MD IMG DIAGNOSTIC IMAGING ORDERABLES Final Result documented in this encounter Visit Diagnoses Diagnosis Calculus of kidney- Primary Calculus of kidney documented in this encounter
--- OUTSIDE RECORDS SUMMARY | 2025-05-06 09:51 | XMS_ITS | Encounter Summary ---
Author Organization [employer] ([place], [place], [place], [place]) Address [address] [place] [address] Care Team Providers Care Financial Manager Name Role Phone Unavailable Primary Care Provider Unavailabl e Reason for Referral * Diagnostic X-Ray (Emergency) - Closed Specialty Diagnoses / Procedures Referred By Sarai christie Referred To Contact Diagnoses Calculus of kidney Procedures X-ray abdomen KUB 1 view Lv Jacob Jr., MD [address] [place] [address] [address] [place] [address] Phone: tel: fax: Referral ID Status Reason Start Date Expiration Date Visits Re quested Visits Authorized [id number] Closed 10/09/2024 10/09/2025 1 1 Encounter Details Date Type Department Care Team (Late st Contact Info) Description 10/09/2024 Outside Orders [facility] - [place] [facility] [place] [address] [place] [address] [address] [place] [phone] Lv Jacob Jr., MD [address] [place] [address] [address] [place] [address] Calculus of kidney (Primary Dx) Social History [...] Date Dandre rded Speak language other than [place] at home Not on file 06/07/2024 Want [...] Results * X-ray abdomen KUB 1 view (10/09/2024 11:07 AM EST) Anatomical Region Laterality Modality Abdomen X-Ray 10/09/2024 11:3 8 AM EST Impressions 10/09/2024 12:41 PM EST Nonspecific bowel gas pattern. Images reviewed, interpreted, and dictated by Dr. Sylvester Cardenas. Transcribed by Edvin Neal PA-C. Narrative 10/09/2024 12:41 PM EST KUB HISTORY: Nephrolithiasis. FINDINGS: A single view of the abdomen with a coned-down of the pelvis demonstrates a nonspecific bowel gas pattern. A left nephrostomy tube is present. There is a tiny left renal stone. There has been interval removal of a right nephroureteral catheter. Procedure Note Sylvester Cardenas MD - 10/09/2024 KUB HISTORY: Nephrolithiasis. FINDINGS: A single view of the abdomen with a coned-down of the pelvis demonstrates a nonspecific bowel gas pattern. A left nephrostomy tube is present. There is a tiny left renal stone. There has been interval removal of a right nephroureteral catheter. IMPRESSION: Nonspecific bowel gas pattern. Images reviewed, interpreted, and dictated by Dr. Sylvester Cardenas. Transcribed by Edvin Neal PA-C. Lv Jacob Jr., MD IMG DIAGNOSTIC IMAGING ORDERABLES Final Result documented in this encounter Visit Diagnoses Diagnosis Calculus of kidney- Primary Calculus of kidney documented in this encounter
--- OUTSIDE RECORDS SUMMARY | 2025-05-06 09:51 | XMS_ITS | Clinical Summary ---
Author Organization [employer] ([place], [place], [place], [place]) Address [address] [place] [address] Care Team Providers Care Vice President Network Name Role Phone Unavailable Primary Care Provider [...] Date Dandre rded Speak language other than [place] at home Not on file 06/07/2024 Want [...] Orientation Not on file Plan of Treatment Health Maintenance Due Date Last Done Comments Depression Screening (12+) 1959 Tobacco Cessation Counseling and Screening (12+) 08/10 Hepatitis C Screening 1965 DTAP/TDAP/TD VACCINES (1 - Tdap) 1966 Pneumococcal 50+ years (1 of 1 - PCV) 1997 Shingles Vaccine (Zoster) (1 of 2) 1997 Medicare Initial AWV [id number] 08/07/2013 Respiratory Syncytial Virus (RSV) Adult or (1 - 1-dose 75+ series) 2022 COVID-19 VACCINE (2023- season) 2024 Falls Risk Screening 11/06/2024 Influenza Vaccine (#1) 2025 Insurance MEDICARE PART A B
--- OUTSIDE RECORDS SUMMARY | 2025-05-06 09:51 | XMS_ITS | Data Portability ---
Author Organization [facility] and [facility] [place] Address [address] [place] [address] Care Team Providers Care Curator Name Role Phone ARIES HARRIS Primary Care Provider [phone] Assessment No assessment recorded. Plan of Treatment Reminders Order Date Submit Date Provider Last Modified By Organization Details Last Modified Time Details Appointments None recorded. Lab None recorded. Referral None recorded. Procedures colonoscopy procedure (PROC) 2023 024 [email or web address] 4 Vitaly Garcia MD, [address] [place] [address] , [facility], [place], [address], 4 12:52:33 colonoscopy procedure (PROC) 2023 024 [address] , [address], [place], [address], 4 15:35:43 bladder scan (PROC) 2022 023 [email or web address] [id number] Not available 3 10:53:02 Surgeries None recorded. Imaging CT, abdomen + pelvis, w/o contrast 2022 023 [email or web address] Not available 3 08:42:47 Medication Orders Miralax 17 gram/dose oral powder [address] [facility] [address] [facility] [address], [address], [place], [address], 4 14:29:33 Dulcolax (bisacodyl) 5 mg tablet,cheo okeefed release 2023 024 [email or web address] [facility], [address] [place], [address], 4 14:29:33 tamsulosin 0.4 mg capsule 2022 023 JOSE [facility], [address] [place], [address], 3 14:07:08 Patient TargetsNo targets recorded. Patient InstructionsNo instructions recorded. Reason for Referral None Reported. Results Created Date Observation Date Name Description Value Unit Range Abnormal Flag Note LastModifiedBy Organization Detail LastModifiedTime 03/26/20 23 03/26/2023 BASIC METAB OLIC PANEL sodium 142 mmol/ L 137-14 7 Not Available [facility] ([facility]Op [facility]) [address] [place] [address] [place], [address], 03/26/2023 15:12:47 03/26/20 23 03/26/2023 BASIC METAB OLIC PANEL potassium 4.3 mmol/ L 3.5-5. 1 Not Available [facility] ([facility]Op [facility]) [address] [place] [address] [place], [address], 03/26/2023 15:12:47 03/26/20 23 03/26/2023 BASIC METAB OLIC PANEL chloride 109 mmol/ L 98-110 Not Available [facility] ([facility]) [address] [place] [address] [place], [address], 03/26/2023 15:12:47 03/26/20 23 03/26/2023 BASIC METAB OLIC PANEL carbon dioxide 21 mmol/ L 21-30 Not Available [facility] ([facility]) [address] [place] [address] [place], [address], 03/26/2023 15:12:47 03/26/20 23 03/26/2023 BASIC METAB OLIC PANEL anion gap 12 mmol/ L 6-14 Not Available [facility] (Pre-Op Clinic) [address] [facility] [place], [address], 03/26/2023 15:12:47 03/26/20 23 03/26/2023 BASIC METAB OLIC PANEL glucose 158 mg/dL 70-115 high Not Available [facility] ([facility]) [address] [place] [address] [place], [address], 03/26/2023 15:12:47 03/26/20 23 03/26/2023 BASIC METAB OLIC PANEL BUN 22 mg/dL 9-20 high Not Available [facility] ([facility]) [address] [place] [address] [place], [address], 03/26/2023 15:12:47 03/26/20 23 03/26/2023 BASIC METAB OLIC PANEL creatinine 1.2 mg/dL 0.5-1. 5 Not Available [facility] ([facility]) [address] [place] [address] [place], [address], 03/26/2023 15:12:47 03/26/20 23 03/26/2023 BASIC METAB OLIC PANEL BUN/creatini ne ratio 18 ratio 10-20 Not Available [facility] (Pre[facility]Op Clinic) [address] [place] [address] [place], [address], 03/26/2023 15:12:47 03/26/20 23 03/26/2023 BASIC METAB OLIC PANEL glom filtration rate TNP mL/mi n >60- GFR has only been valid ated for patie nts 18-70 years of age. Not Available [facility] (Pre[facility]Op [facility]) [address] [place] [address] [place], [address], 03/26/2023 15:12:47 03/26/20 23 03/26/2023 BASIC METAB OLIC PANEL osmolality (calculated) 302 mosmo l/kg 275-30 1 high OSMOL ALITY IS A CALCU LATIO N UTILI ZING THE SERUM /PLAS MA SODIU M, GLUCO SE AND UREA NITRO GEN (BUN) LEVEL S. FOR THE MOST ACCUR ATE RESUL T A MEASU RED SERUM OSMOL ALITY IS DARLIN HERNANDEZ. Not Available [facility] ([facility]) [address] [facility] [place], [address], 03/26/2023 15:12:47 03/26/20 23 03/26/2023 BASIC METAB OLIC PANEL calcium 9.0 mg/dL 8.5-10 .8 Not Available [facility] ([facility]) [address] [place] [address] [place], [address], 03/26/2023 15:12:47 03/26/20 23 03/26/2023 BASIC METAB OLIC PANEL note Unles s other silver noted testi ng perfo [facility]med at: [facility] [address] [place] [address] Marcus eason MD Not Available [facility] ([facility]) [address] [place] [address] [place], [address], 03/26/2023 15:12:47 03/29/20 23 03/29/2023 CBC W/ AUTO DIFF WBC 9.84 K/uL 4.5-11 .5 Not Available [facility] ([facility]) [address] [place] [address] [place], [address], 03/29/2023 06:48:34 03/29/2003/29/2023 CBC W/ AUTO DIFF RBC 4.31 M/uL 4.0-5. 4 Not Available [facility] ([facility]) [address] [place] [address] [place], [address], 03/29/2023 06:48:34 03/29/2003/29/2023 CBC W/ AUTO DIFF HGB 10.3 g/dL 14.0-1 8.0 low Not Available [facility] ([facility]) [address] [place] [address] [place], [address], 03/29/2023 06:48:34 03/29/20 23 03/29/2023 CBC W/ AUTO DIFF HCT 34.5 % 40-54 low Not Available [facility] ([facility]) [address] [place] [address] [place], [address], 03/29/2023 06:48:34 03/29/2003/29/2023 CBC W/ AUTO DIFF MCV 80.0 fL 80.0-1 00.0 Not Available [facility] ([facility]) [address] [place] [address] [place], [address], 03/29/2023 06:48:34 03/29/2003/29/2023 CBC W/ AUTO DIFF MCH 23.9 pg 26.0-3 2.0 low Not Available [facility] ([facility]) [address] [place] [address] [place], [address], 03/29/2023 06:48:34 03/29/2003/29/2023 CBC W/ AUTO DIFF MCHC 29.9 g/dL 32.0-3 6.0 low Not Available [facility] ([facility]) [address] [place] [address] [place], [address], 03/29/2023 06:48:34 03/29/2003/29/2023 CBC W/ AUTO DIFF RDW 16.1 % 11.5-1 4.5 high Not Available [facility] ([facility]) [address] [place] [address] [place], [address], 03/29/2023 06:48:34 03/29/2003/29/2023 CBC W/ AUTO DIFF platelet count 179 K/uL 142-42 4 Not Available [facility] ([facility]) [address] [place] [address] [place], [address], 03/29/2023 06:48:34 03/29/2003/29/2023 CBC W/ AUTO DIFF MPV 11.5 fL 6.8-10 .2 high Not Available [facility] ([facility]) [address] [place] [address] [place], [address], 03/29/2023 06:48:34 03/29/2003/29/2023 CBC W/ AUTO DIFF neutrophil % 83.3 % 50-70 high Not Available [facility] ([facility]) [address] [place] [address] [place], [address], 03/29/2023 06:48:34 03/29/2003/29/2023 CBC W/ AUTO DIFF lymphocyte % 9.1 % 18.0-4 2.0 low Not Available [facility] ([facility]) [address] [place] [address] [place], [address], 03/29/2023 06:48:34 03/29/2003/29/2023 CBC W/ AUTO DIFF monocyte % 6.6 % 2.0-11 .0 Not Available [facility] ([facility]) [address] [place] [address] [place], [address], 03/29/2023 06:48:34 03/29/2003/29/2023 CBC W/ AUTO DIFF eosinophil % 0.1 % 1.0-3. 0 low Not Available [facility] ([facility]) [address] [place] [address] [place], [address], 03/29/2023 06:48:34 03/29/2003/29/2023 CBC W/ AUTO DIFF basophil % 0.2 % 0.0-2. 0 Not Available [facility] ([facility]) [address] [place] [address] [place], [address], 03/29/2023 06:48:34 03/29/2003/29/2023 CBC W/ AUTO DIFF immature granulocytes % 0.7 % 0.0-0. 8 Not Available [facility] ([facility]) [address] [place] [address] [place], [address], 03/29/2023 06:48:34 03/29/2003/29/2023 CBC W/ AUTO DIFF nucleated red blood cells % 0.0 % Not Available [facility] ([facility]) [address] [place] [address] [place], [address], 03/29/2023 06:48:34 03/29/20 23 03/29/2023 CBC W/ AUTO DIFF neutrophil # 8.19 K/uL Not Available [facility] ([facility]) [address] [place] [address] [place], [address], 03/29/2023 06:48:34 03/29/20 23 03/29/2023 CBC W/ AUTO DIFF lymphocyte # 0.90 K/uL Not Available [facility] ([facility]) [address] [place] [address] [place], [address], 03/29/2023 06:48:34 03/29/20 23 03/29/2023 CBC W/ AUTO DIFF monocyte # 0.65 K/uL Not Available [facility] ([facility]Op [facility]) [address] [place] [address] [place], [address], 03/29/2023 06:48:34 03/29/20 23 03/29/2023 CBC W/ AUTO DIFF eosinophil # 0.01 K/uL Not Available [facility] ([facility]) [address] [place] [address] [place], [address], 03/29/2023 06:48:34 03/29/20 23 03/29/2023 CBC W/ AUTO DIFF basophil # 0.02 K/uL Not Available [facility] ([facility]) [address] [place] [address] [place], [address], 03/29/2023 06:48:34 03/29/20 23 03/29/2023 CBC W/ AUTO DIFF immature gramulocytes # 0.07 K/uL Not Available [facility] ([facility]) [address] [place] [address] [place], [address], 03/29/2023 06:48:34 03/29/20 23 03/29/2023 CBC W/ AUTO DIFF nucleated red blood cells # 0.00 k/uL Not Available [facility] ([facility]) [address] [place] [address] [place], [address], 03/29/2023 06:48:34 03/29/2003/29/2023 CBC W/ AUTO DIFF manual differential NO Not Available [facility] ([facility]) [address] [place] [address] [place], [address], 03/29/2023 06:48:34 03/29/2003/29/2023 CBC W/ AUTO DIFF note Unles s other silver noted testi ng perfo [facility]med at: [facility] [address] [place] [address] Marcus eason MD Not Available [facility] ([facility]) [address] [place] [address] [place], [address], 03/29/2023 06:48:34 03/29/2003/29/2023 BASIC METAB OLIC PANEL sodium 138 mmol/ L 137-14 7 Not Available [facility] ([facility]) [address] [place] [address] [place], [address], 03/29/2023 07:10:24 03/29/2003/29/2023 BASIC METAB OLIC PANEL potassium 4.3 mmol/ L 3.5-5. 1 Not Available [facility] ([facility]) [address] [place] [address] [place], [address], 03/29/2023 07:10:24 03/29/20 23 03/29/2023 BASIC METAB OLIC PANEL chloride 108 mmol/ L 98-110 Not Available [facility] ([facility]) [address] [place] [address] [place], [address], 03/29/2023 07:10:24 03/29/20 23 03/29/2023 BASIC METAB OLIC PANEL carbon dioxide 22 mmol/ L 21-30 Not Available [facility] ([facility]) [address] [place] [address] [place], [address], 03/29/2023 07:10:24 03/29/20 23 03/29/2023 BASIC METAB OLIC PANEL anion gap 8 mmol/ L 6-14 Not Available [facility] ([facility]) [address] [place] [address] [place], [address], 03/29/2023 07:10:24 03/29/20 23 03/29/2023 BASIC METAB OLIC PANEL glucose 207 mg/dL 70-115 high Not Available [facility] ([facility]) [address] [place] [address] [place], [address], 03/29/2023 07:10:24 03/29/20 23 03/29/2023 BASIC METAB OLIC PANEL BUN 18 mg/dL 9-20 Not Available [facility] ([facility]) [address] [place] [address] [place], [address], 03/29/2023 07:10:24 03/29/20 23 03/29/2023 BASIC METAB OLIC PANEL creatinine 1.1 mg/dL 0.5-1. 5 Not Available [facility] ([facility]) [address] [place] [address] [place], [address], 03/29/2023 07:10:24 03/29/20 23 03/29/2023 BASIC METAB OLIC PANEL BUN/creatini ne ratio 16 ratio 10-20 Not Available [facility] ([facility]) [address] [place] [address] [place], [address], 03/29/2023 07:10:24 03/29/20 23 03/29/2023 BASIC METAB OLIC PANEL glom filtration rate TNP mL/mi n >60- GFR has only been valid ated for patie nts 18-70 years of age. Not Available [facility] ([facility]) [address] [place] [address] [place], [address], 03/29/2023 07:10:24 03/29/20 23 03/29/2023 BASIC METAB OLIC PANEL osmolality (calculated) 295 mosmo l/kg 275-30 1 OSMOL ALITY IS A CALCU LATIO N UTILI ZING THE SERUM /PLAS MA SODIU M, GLUCO SE AND UREA NITRO GEN (BUN) LEVEL S. FOR THE MOST ACCUR ATE RESUL T A MEASU RED SERUM OSMOL ALITY IS SUGGE STED. Not Available [facility] ([facility]) [address] [place] [address] [place], [address], 03/29/2023 07:10:24 03/29/20 23 03/29/2023 BASIC METAB OLIC PANEL calcium 8.1 mg/dL 8.5-10 .8 low Not Available [facility] ([facility]) [address] [place] [address] [place], [address], 03/29/2023 07:10:24 03/29/20 23 03/29/2023 BASIC METAB OLIC PANEL note Unles s other silver noted testi ng perfo rmed at: [facility] [address] [place] [address] Marcus eason MD Not Available [facility] ([facility]) [address] [place] [address] [place], [address], 03/29/2023 07:10:24 03/07/20 23 03/07/2023 CT, abdom en + pelvi s, w/o contr ast [facility] [address] [place] [address] Phone: Fax: Name: JIM HUMMEL Exam Date: 03/07/20 23 : [birth year] Age 77 Gender : M Access ion: [id number] Physic mariola: TERRENCE STAPLES Facili ty: [facility] Facili ty HSV: Outpat ient Exam: CT ABD/PE LVIS W/O CT abdome n and pelvis withou t IV contra st Histor y: Hematu ainsley and dysuri a Findin gs: Exam was perfor med withou t oral or IV contra st and utiliz ing techni ques to keep radiat ion dose as low as reason ably achiev able. Compar saima date is 06/14/18 . There is severe bilate ral hydron ephros is which is new. There are severa l bilate ral renal cysts. There are multip le bilate ral renal calcif icatio ns. The larges t and most angélica us are on the left. The larges t on the left measur es up to 10 mm. There are severa l puncta te stones within the right kidney . There is modera tely severe diffus e ureter al dilata tion. There is a 3.5 mm stone in the left UVJ. There is extens junaid polypo id-nilam earing hyperd ense materi al protru ding into the bladde r lumen spinning operator iorly and obstru cting the ureter al orific es. This materi al was presen t previo usly althou gh has increa sed in amount . The prosta te gland is mildly enlarg ed. There is no free pelvic fluid. There is divert iculos is withou t acute divert iculit is. Evalua tion of solid organs is limite d withou t IV contra st. The nonopa cified solid organs appear overal l normal in size. There is cholel ithias is withou t gallbl adder dilata tion or wall thicke jo ann. Impres roderick: Findin gs are most compat ible with bladde r malign darryl. This result s in obstru ction of the ureter al orific es and severe bilate ral hydron ephros is. In additi on, there is a left UVJ stone. Bilate ral nephro calcin osis. Cholel ithias is withou t acute cholec ystiti s. Dictat ed By: JENNIFER ALVAREZ Transc ribed By: breanna smith Transc ribed On: 03/07/20 9:08 AM Electr onical ly signed by: JENNIFER ALVAREZ 03/07/20 Thank you for referr ing JIM HUMMEL to [facility]. Legall y authen ticate d by RAINE Haddad MD 03-07 09:22: 28 CC'ed Logic: Orderi ng Provid er: BEL POOLEVanessa Soria CC Provid er: STEVEN Mendez Attend ing Provid er: BEL Soria Referr ing Provid er: BEL POOLEVanessa Soria Admitt ing Provid er: BEL POOLEVanessa Soria [address] (Radiology) [address] [place] [address] [place], [address], 04/04/2023 05:35:47 03/29/20 23 03/29/2023 elect taylor moreira am No observ ation record ed. [address] (Registration ) [address] [place] [address] [place], [address], 04/04/2023 05:35:47 Result Notes Documentation Provider Name and Address Organization Details Recorded Time Ct, Abdomen + Pelvis, W/o Contrast : [address] [place] [address] Name: JIM ANAND Exam Date: 03/07/2023 : 1945 Age 77 Gender: M Physician: TROY STAPLES Facility: [facility] Facility HSV: Outpatient Exam: CT ABD/PELVIS W/O CT abdomen and pelvis without IV contrast History: Hematuria and dysuria Findings: Exam was performed without oral or IV contrast and utilizing techniques to keep radiation dose as low as reasonably achievable. Comparison date is 06/14/18. There is severe bilateral hydronephrosis which is new. There are several bilateral renal cysts. There are multiple bilateral renal calcifications. The largest and most numerous are on the left. The largest on the left measures up to 10 mm. There are several punctate stones within the right kidney. There is moderately severe diffuse ureteral dilatation. There is a 3.5 mm stone in the left UVJ. There is extensive polypoid-appearing hyperdense material protruding into the bladder lumen posteriorly and obstructing the ureteral orifices. This material was present previously although has increased in amount. The prostate gland is mildly enlarged. There is no free pelvic fluid. There is diverticulosis without acute diverticulitis. Evaluation of solid organs is limited without IV contrast. The nonopacified solid organs appear overall normal in size. There is cholelithiasis without gallbladder dilatation or wall thickening. Impression: Findings are most compatible with bladder malignancy. This results in obstruction of the ureteral orifices and severe bilateral hydronephrosis. In addition, there is a left UVJ stone. Bilateral nephrocalcinosis. Cholelithiasis without acute cholecystitis. Dictated By: JENNIFER WALLACE Transcribed By: breanna rodriguez Transcribed On: 03/07/2023 9:08 AM Electronically signed by: JENNIFER WALLACE 03/07/2023 Thank you for referring JIM ANAND to [facility]. Legally authenticated by RODRIGO Haddad MD 2023-03-07 09:22:28 CC'ed Logic: Ordering Provider: BEL SIMMONS CC Provider: STEVEN CHRIS Attending Provider: BEL SIMMONS Referring Provider: BEL SIMMONS Admitting Provider: BEL Staples Jr, MD [address] [place] [address], [address], [place], [email or web address]] [place] - [place] & [place] 03/15/2023 13:43:53 Problems Name Problem SNOMED Code Status Onset Date Resolution Date Notes Provider Name and Address Organization Details Recorded Time Hypertensiv e disorder 22972527 Active 2022 Kristen Yazan [place], [place] 3 14:00:09 History of calculus of kidney 058826471 Active 2022 Krsiten Yazan null, [place] 3 14:00:30 Arthritis 5684539 Active 2022 Kristen Hand [place], [place] 3 14:00:39 Diabetes mellitus 24229854 Active 2022 Kristen Hand [place] 3 14:01:27 Sleep apnea 26601495 Active 2022 Kristen [place], [place] 3 14:01:40 History of malignant neoplasm of bladder 263744936 Active 2023 Iman Lugo [place] - [place] [facility] & [place] 4 09:44:29 CT of pelvis abnormal 9621320071578 9104 Active 2023 Ivonne Cui NP [address], [address], [place], [address], [place] - [place] & [place] 4 12:19:46 Altered bowel function 94527098 Active 2023 Ivonne Cui NP [address], [address], [place], [address], [place] [facility] - [place] & [place] 4 12:22:30 Constipatio n 10278029 Active 2023 Ivonne Cui NP [address], [address], [place], [address], [place] [facility] & [place] 4 12:24:26 Anorectal pain 778806818 Active 2023 Ivonne Cui NP [address], [address], [place], [address], [place] [facility] - [place] & [place] 4 12:24:43 Problem Notes None recorded. Procedures Surgical History Date Name Laterality Status Provider Name and Address Organization Details Recorded Time 3 Cancer Surgery completed Ivonne Cui NP [address], [address], [place], [address], [place] [facility] [facility] & [place] 04/10/2024 12:27:11 3 Cystoscopy-Mal e completed Troy Staples Jr, MD [address], [address], [place], [address], [place] [facility] [facility] & [place] 03/15/2023 12:53:53 excision of basal cell carcinoma completed Kristen Hand [place] [facility] & [place] 02/24/2023 14:03:05 Imaging Results None recorded. Procedure Notes None recorded. Medical Equipment None Reported. Allergies No known drug allergies Medications Name Sig Start Date Stop Date Status Note LastModified by Organization Details LastModified Time quetiapine 25 mg tablet active Not Available Not Available Not Available amoxicillin 500 mg capsule active Not Available Not Available Not Available metformin 500 mg tablet TAKE 1 TABLET BY MOUTH TWICE DAILY WITH MEALS active Not Available Not Available No t Available atorvastatin 20 mg tablet TAKE 1 TABLET BY MOUTH ONCE DAILY active Not Available Not Available No t Available loperamide 2 mg capsule TAKE 1 CAPSULE BY MOUTH THREE TIMES DAILY NEEDED FOR DIARRHEA AFTER EACH LOOSE STOOL. active Not Available Not Available No t Available atorvastatin 10 mg tablet TAKE 1 TABLET BY MOUTH ONCE DAILY active Not Available Not Available No t Available metoprolol succinate ER 50 mg tablet,exten ded release 24 hr TAKE 1 TABLET BY MOUTH ONCE DAILY active Not Available Not Available No t Available fluconazole 200 mg tablet TAKE 1 TABLET BY MOUTH ONCE DAILY active Not Available Not Available No t Available ondansetron HCl 4 mg tablet TAKE 1 TABLET BY MOUTH EVERY 6 HOURS NEEDED FOR NAUSEA active Not Available Not Available No t Available famotidine 40 mg tablet TAKE 1 TABLET BY MOUTH ONCE DAILY active Not Available Not Available No t Available metronidazol e 500 mg tablet TAKE 1 TABLET BY MOUTH EVERY 8 HOURS (START DAY PRIOR TO SURGERY) active Not Available Not Available No t Available levofloxacin 250 mg tablet active Not Available Not Available Not Available amlodipine 5 mg tablet TAKE 1 TABLET BY MOUTH ONCE DAILY active Not Available Not Available No t Available allopurinol 100 mg tablet TAKE 1 TABLET BY MOUTH ONCE DAILY active Not Available Not Available No t Available omeprazole 40 mg capsule,choe yed release TAKE 1 CAPSULE BY MOUTH ONCE DAILY active Not Available Not Available No t Available doxycycline monohydrate 100 mg tablet TAKE 1 TABLET BY MOUTH TWICE DAILY active Not Available Not Available No t Available quetiapine 100 mg tablet active Not Available Not Available Not Available magnesium oxide 400 mg (241.3 mg magnesium) tablet TAKE 1 TABLET BY MOUTH ONCE DAILY active Not Available Not Available No t Available tamsulosin 0.4 mg capsule TAKE 1 CAPSULE BY MOUTH TWICE DAILY active Not Available Not Available No t Available sodium bicarbonate 650 mg tablet TAKE 1 TABLET BY MOUTH EVERY MORNING active Not Available Not Available No t Available doxycycline monohydrate 100 mg capsule TAKE 1 CAPSULE BY MOUTH TWICE DAILY active Not Available Not Available No t Available hydrocodone 7.5 mg-acetamino phen 325 mg tablet TAKE 1 TABLET BY MOUTH EVERY 6 HOURS NEEDED active Not Available Not Available No t Available mirtazapine 30 mg tablet active Not Available Not Available Not Available ferrous sulfate 325 mg (65 mg iron) tablet TAKE 1 TABLET BY MOUTH ONCE DAILY WITH BREAKFAST active Not Available Not Available No t Available Gentle Laxative (bisacodyl) 5 mg tablet,delay ed release TAKE 2 TABLETS BY MOUTH DIRECTED FOR 1 DAY FOR BOWEL PREP active Not Available Not Available No t Available lidocaine 5 % topical patch active Not Available Not Available Not Available promethazine 25 mg tablet active Not Available Not Available Not Available allopurinol 300 mg tablet TAKE 1 TABLET BY MOUTH ONCE DAILY active Not Available Not Available No t Available mirtazapine 15 mg tablet TAKE 1 TABLET BY MOUTH ONCE DAILY AT 2PM FOR AGITATED ENCEPHALOPA THY active Not Available Not Available No t Available ibuprofen 600 mg tablet TAKE 1 TABLET BY MOUTH EVERY 8 HOURS NEEDED active Not Available Not Available No t Available oxycodone-ac etaminophen 7.5 mg-325 mg tablet TAKE 1 TABLET BY MOUTH EVERY 6 HOURS NEEDED active Not Available Not Available No t Available levofloxacin 750 mg tablet TAKE 1 TABLET BY MOUTH EVERY 48 HOURS FOR 4 DAYS. FIRST DOSE DUE 12/02/2023 active Not Available Not Available No t Available methylpredni solone 4 mg tablets in a dose pack TAKE DIRECTED active Not Available Not Available No t Available colchicine 0.6 mg tablet TAKE TWO TABLETS BY MOUTH IN ONE DOSE. THEN TAKE ONE TABLET ONE HOUR AFTER FIRST DOSE. (HOLD ALLOPURINOL ON DAY OF TAKING COLCHICINE) active Not Available Not Available Not Available cefdinir 300 mg capsule TAKE 1 CAPSULE BY MOUTH TWICE DAILY FOR UTI AND PROCTITIS FOR 10 DAYS active Not Available Not Available Not Available losartan 100 mg tablet TAKE 1 TABLET BY MOUTH ONCE DAILY active Not Available Not Available No t Available amoxicillin 875 mg-potassium clavulanate 125 mg tablet TAKE 1 TABLET BY MOUTH TWICE DAILY active Not Available Not Available No t Available nitrofuranto in monohydrate/ macrocrystal s 100 mg capsule TAKE 1 CAPSULE BY MOUTH EVERY 12 HOURS active Not Available Not Available No t Available fenofibrate 160 mg tablet TAKE 1 TABLET BY MOUTH ONCE DAILY active Not Available Not Available No t Available quetiapine 50 mg tablet TAKE 1 TABLET BY MOUTH ONCE DAILY AT NIGHT active Not Available Not Available No t Available rivastigmine 9.5 mg/24 hour transdermal patch active Not Available Not Available Not Available RisaQuad 8 billion cell capsule active Not Available Not Available Not Available Humalog KwikPen (U-100) Insulin 100 unit/mL subcutaneous active Not Available Not Available Not Available diclofenac 1 % topical gel APPLY TOPICALLY TWICE DAILY TO BILATERAL KNEES FOR PAIN. active Not Available Not Available No t Available GaviLyte-G 236 gram-22.74 gram-6.74 gram-5.86 gram oral solution MIX AND TAKE BY MOUTH DIRECTED STARTING AT 10 AM THE DAY PRIOR TO SURGERY active Not Available Not Available N ot Available ClearLax 17 gram/dose oral powder MIX 10 CAPFULS WITH 32 OUNCES OF GATORADE AND DRINK BY MOUTH AT 4 PM THE DAY BEFORE PROCEDURE, THEN REPEAT AT 4 AM ON THE MORNING OF PROCEDURE active Not Available Not Available No t Available Linzess 290 mcg capsule TAKE 1 CAPSULE BY MOUTH ONCE DAILY IN THE MORNING BEFORE BREAKFAST active Not Available Not Available No t Available Stimulant Laxative Plus 8.6 mg-50 mg tablet TAKE ONE TABLET BY MOUTH TWICE DAILY THEN switch TO NEEDED if having daily stools goal is 1 -2 bowel movements PER DAY active Not Available Not Available No t Available quetiapine 150 mg tablet active Not Available Not Available Not Available Vitals Date Recorded Body height Body mass index (BMI) Body weight Body temperature Provider Name and Address Organization Details Last Updated DateTime 02/24/2023 182.88 cm 40.7 kg/m2 065678.71 g 98.1 [degF] Kristen Hand [facility] & [place] 02/24/2023 14:04:37 Date Recorded Body height Body mass index (BMI) Body weight Body temperature Provider Name and Address Organization Details Last Updated DateTime 03/15/2023 182.88 cm 40.7 kg/m2 815337.71 g 97.9 [degF] Kristen Hand [facility] & [place] 03/15/2023 10:17:16 Date Recorded Body height Body mass index (BMI) Body weight Body temperature Oxygen saturation Oxygen saturation in Arterial blood by Pulse oximetry Heart rate Provider Name and Address Organization Details Last Updated DateTime 4 182.88 cm 31.2 kg/m2 594611. 25 g 97 [degF] 99 % 99 % 97 /min Iman Lugo [facility] & [place] 4 09:26:58 Social History None recorded. Functional Status Question Answer Note LastModified by Organization D etails LastModified Time What is your level of alcohol consumption? None [email or web address] Information not available 02/24/2023 Mental Status None recorded. Family History Relationship Description Onset Age of this Age Resolved Age Notes LastModified by Organization Details LastModified Time Mother Natural dec [email or web address] Not available 2022 14:02:31 Father Natural dec [email or web address] Not available 2022 14:02:31 Brother Family history unknown Not available 2022 14:02:42 Sister Family history unknown Not available 2022 14:02:42 Medical History Condition Response Diabetes Y Hyperlipidemia Y Gout Y Cancer Y Hypertension Y Sleep Apnea Y Past Encounters Encounter ID Performer Location Encounter Start Date Encounter Closed Date Diagnosis/Indication Diagnosis SNOMED-CT Code Diagnosis ICD10 Code Diagnosis Note [id number] Troy Staples Jr, MD [facility] [address] [address] 02/24/2023 13:31:02 02/24/2023 15:00:36 Blood in urine 43889794 R31.9 patient with intermitte nt gross hematuria. He does have a history of kidney stones. We discussed further workup with CT scan stone protocol and cystoscopy . Will arrange the CT scan at [facility] and follow-up 2 weeks with cystoscopy . Lower urin tong tract symptoms due to benign prostatic hypertrophy 2625683191 9101 N40.1 patient with lower urinary tract symptoms of nocturia 2-6 times as well as urge incontinen ce. We will increase his tamsulosin to twice a day. Cystoscopy 2 weeks to evaluate his prostate and bladder. His bladder scan today shows a residual 470 cc. Urge incon tinence of urine 87070097 N39.41 patient with the urinary incontinen ce of an urge type. He is not emptying his bladder out well and may be of an overflow etiology. Will increase his tamsulosin to b.i.d.. [id number] Troy Staples Jr, MD [facility] [address] [address] 03/15/2023 10:14:50 03/15/2023 11:29:45 Malignant neoplasm of urinary bladder 315758212 C67.9 cystoscopy today reveals multiple bladder tumors. The ureteral orifices can not be visualized he would a tumor overlying the trigone. There was tumor protruding into the bladder neck upon entering the bladder with the cystoscope however on removing the cystoscope but had pulled back into the bladder. We discussed the findings and we will set him up for Transureth ral resection of multiple bladder tumors. We discussed that stent placement may be necessary. Bilateral hydronephrosis 90075786 N13.30 Urge incon tinence of urine 25731798 N39.41 patient with urge incontinen ce. It is possible that the bladder tumors are creating an irritable bladder. Recent bladder scan was elevated to 470 so anticholin ergics are not indicated at this time. He will continue on the tamsulosin b.i.d.. [id number] Ivonne Cui NP [facility] [address] [place] [phone] 04/10/2024 09:05:38 04/10/2024 13:46:45 Altered bowel function 24878143 R19.4 increased constipati on following prostatect marlen, bladder resection, and ileal conduit creation 04/2023 secondary to prostate and bladder cancer. Recently improved with use of laxatives BID. Recommend colonoscop y as above to further evaluate. Pt is scheduled for Colon 05/22/2024 @ 9:[address] of pelvis abnormal [id number] abd/pelvis reviewed 03/16/24 revealed nonspecifi c soft tissue prominence of the anorectal soft tissues. Hx of prostate and bladder cancer April 2023 at which time underwent prostatect marlen, bladder resection, and ileal conduit creation. No prior colonoscop y. No family history of colon cancer. Recommend colonoscop y to r/o underlying colorectal cancer, polyps, lesions, other. Constipation 93948605 K5 9.00 recommend continued use of laxatives b.i.d. as prescribed . Plan for colonoscop y as about further evaluate. Anorectal pain 543490497 K62.[address] from [facility] 03/16/2024 plan for colonoscop y as above to further evaluate. Health Concerns Section Related Observation LastModified by Organization Detai ls LastModified Time None Recorded Concern Status LastModified by Organization Details LastModified Time None Recorded Advance Directives Directive None Recorded Payers Insurance Date Sequence Insurance Name Policy Number Policy Starks Covered Member ID Starks Member ID Guarantor Name 05/25/2024 1 [place] Jim Anand [id number] Jim Anand 05/25/2024 2 [place] [id number] Jim Anand [id number] Jim Anand Notes Date Note Type Note Provider Name and Address Organization Details Recorded Time 3 text/html Patient is a 77-year-old white male referred for hematuria and known history of kidney stones. Patient states he has some intermittent gross hematuria. No recent imaging has been performed.Patient also with history of BPH. He is on tamsulosin once a day. His bladder scan today indicates a residual of 470 cc. He complains of nocturia 2-6 times and evening as well as urge incontinence. Apparently he has been bit resistance to close follow-up with doctors. Recent PSA screening reveals a PSA of 2 7. Troy Staples Jr, MD [address] [place] [address], [address], [address], [place] - [place] - [place] & [place] 02/27/2023 14:07:58 3 text/html Patient is a 77-year-old white male with gross hematuria and known history of kidney stones. Was seen 2 weeks ago and returns today with a CT scan. His bladder scan is previous visit was noted to be 470 cc. Lower urinary tract symptoms consisting of nocturia 2-6 times as well as urgency and urge incontinence. He wears 5 pull-ups a day and doubles up on them. His CT scan showed severe bilateral hydroureteronephrosis which is new from a previous scan dated June 2018. There are several bilateral renal cyst and numerous bilateral renal stones. The largest and most numerous stones on the left side. The largest stone on left side measures up to 10 mm. There is a 3-1/2 mm stone in the left UVJ. There is extensive polypoid appearing hyperdense material protruding into the bladder lumen posteriorly and obstructing the ureteral orifices. This material was present on the previous scan but has increased in amount. Prostate gland is mildly enlarged. Troy Staples Jr, MD [address] [facility], [address], [place], [address], [place] [facility] & [place] 03/15/2023 12:57:21 4 text/html 78 y.o. male with past medical history of hypertension, dementia, KIA, prostate and bladder cancer. Complex history involving his bladder cancer dating back to April 2023 at which time underwent prostatectomy, bladder resection, and ileal conduit creation. He had hydroureteronephrosis last month and now has bilateral percutaneous right and left nephrostomy placement. Continues to follow with Dr. Jacob. He presents today for evaluation of increased constipation and change in bowel habits which has been ongoing following bladder resection. He was evaluated at [facility] 03/16/[address] scan revealed nonspecific soft tissue prominence of the anorectal soft tissues. He is currently taking laxatives BID with improved constipation at this time however does continue to experience episodes of rectal discomfort. Denies hematochezia. No prior colonoscopy. No family history of colon cancer. Ivonne Cui NP [address] [place] [address], [address], [place], [address], [place] [facility] & [place] 04/10/2024 12:27:39
--- NOTE | 2025-05-06 10:07 | PC.NURSE ---
family is not positive about home medications at this time
--- NOTE | 2025-05-06 10:12 | CT_ITS ---
FINAL REPORT TECHNIQUE: Axial images were obtained of the thoracic spine by computed tomography. Coronal and sagittal reconstruction process performed. This study was performed with techniques to keep radiation doses as low as reasonably achievable (ALARA). Individualized dose reduction techniques using automated exposure control or adjustment of mA and/or kV according to the patient's size were employed. CLINICAL HISTORY: fall COMPARISON: None FINDINGS: Thoracic vertebrae show normal height. Old healed fracture deformity is noted of the T1 spinous process. There is moderate anterior osteophyte formation in the mid and lower thoracic spine. There is no malalignment. IMPRESSION: No acute bony abnormality. Reviewed, Interpreted and Dictated by Abdifatah Hunt MD Transcribed by Shani Ray Authenticated and [facility]
--- NOTE | 2025-05-06 10:12 | XR_ITS ---
FINAL REPORT CLINICAL HISTORY: fall , right elbow pain COMPARISON: None FINDINGS: RIGHT ELBOW 3 views were obtained. There is no acute fracture or dislocation. There is no joint effusion. There is small osteophyte formation along the posterior margin of the olecranon. The radial head is intact. There is no soft tissue abnormality. IMPRESSION: No acute bony abnormality. Reviewed, Interpreted and Dictated by Abdifatah Hunt MD Transcribed by Shani Ray Authenticated and [facility]
--- NOTE | 2025-05-06 10:12 | CT_ITS ---
FINAL REPORT TECHNIQUE: Axial images were obtained of the cervical spine by computed tomography. Coronal and sagittal reconstruction process performed. This study was performed with techniques to keep radiation doses as low as reasonably achievable (ALARA). Individualized dose reduction techniques using automated exposure control or adjustment of mA and/or kV according to the patient''s size were employed. CLINICAL HISTORY: fall COMPARISON: None FINDINGS: Cervical vertebrae show normal height. There is an old healed fracture deformity of the T1 spinous process. There is no malalignment. There is moderate anterior osteophyte formation throughout the cervical spine. On the axial images, there is focal midline disc protrusion at C5-6 with [id number] spinal canal compromise. Mild broad-based midline disc protrusion is noted at C6-7 with mild spinal canal compromise. IMPRESSION: No acute bony abnormality. Midline disc protrusions at C5-6 and C6-7. Old healed fracture deformity T1 spinous process. Reviewed, Interpreted and Dictated by Abdifatah Hunt MD Transcribed by Shani Ray Authenticated and [facility]
--- NOTE | 2025-05-06 10:12 | CT_ITS ---
FINAL REPORT TECHNIQUE: Axial images were obtained of the lumbar spine by computed tomography. Coronal and sagittal reconstruction process performed. This study was performed with techniques to keep radiation doses as low as reasonably achievable (ALARA). Individualized dose reduction techniques using automated exposure control or adjustment of mA and/or kV according to the patient''s size were employed. CLINICAL HISTORY: fall COMPARISON: None FINDINGS: Lumbar vertebrae show normal height. There is moderate anterior osteophyte formation L1-2, L2-3, L3-4, and L4-5. There is no malalignment. On the axial images, there are diffuse disc bulges L1-2 through L4-5 with moderate bilateral neural foraminal narrowing particularly evident at L3-4 and L4-5. Endplate hypertrophy is eccentric to the right at L5-S1 with moderate right neural foraminal narrowing. IMPRESSION: No acute bony abnormality. Reviewed, Interpreted and Dictated by Abdifatah Hunt MD Transcribed by Shani Ray Authenticated and [facility]
--- NOTE | 2025-05-06 10:12 | CT_ITS ---
FINAL REPORT TECHNIQUE: Axial images through the pelvis were performed by computed tomography. Sagittal and coronal reconstruction images were performed. This study was performed with techniques to keep radiation doses as low as reasonably achievable (ALARA). Individualized dose reduction techniques using automated exposure control or adjustment of mA and/or kV according to the patient's size were employed. CLINICAL HISTORY: fall COMPARISON: None FINDINGS: There is moderate narrowing of the hip joint spaces bilaterally. Prominent osteophyte formation is noted along the anterior margins, [id number]-etvp-left. There is a nondisplaced subcapital and right femoral neck fracture without intra-articular extension. The subcapital component is minimally impacted. The proximal left femur is intact. IMPRESSION: Subcapital fracture proximal right femur with extension into the femoral neck, minimally impacted. 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 Reviewed, Interpreted and Dictated by Abdifatah Hunt MD Transcribed by Shani Ray Authenticated and . [facility]
--- NOTE | 2025-05-06 10:24 | CT_ITS ---
FINAL REPORT TECHNIQUE: Axial CT images were performed through the head. Coronal reformatted images were submitted. This study was performed with techniques to keep radiation doses as low as reasonably achievable (ALARA). Individualized dose reduction techniques using automated exposure control or adjustment of mA and/or kV according to the patient's size were employed. CLINICAL HISTORY: fall COMPARISON: None FINDINGS: Moderate atrophy is noted. There is proportional ventriculomegaly. There is no evidence of hemorrhage. There is no mass or edema identified. There is no abnormal extra-axial fluid seen. Retention cyst or polyp is noted in the left maxillary sinus. There is patchy opacity of the left mastoid air cells. IMPRESSION: No acute intracranial process. Moderate atrophy. Chronic left maxillary and mastoid sinusitis. Reviewed, Interpreted and Dictated by Abdifatah Hunt MD Transcribed by Shani Ray Authenticated and [facility]
--- NOTE | 2025-05-06 10:26 | CT_ITS ---
FINAL REPORT TECHNIQUE: After the administration of intravenous contrast, axial images were obtained through the abdomen and pelvis by computed tomography. The study was performed with techniques to keep radiation dose as low as reasonably achievable, (ALARA). Individual dose reduction techniques using automated exposure control or adjustment of mA and/or kV according to the patient's size were employed. CLINICAL HISTORY: right sided abd pain COMPARISON: 10/30/2024 FINDINGS: Abdomen: Again noted is a nodular periphery of the margin of the liver probably due to cirrhosis. The spleen is enlarged measuring up to 15 cm. Multiple calcified gallstones are seen within the gallbladder. The pancreas and adrenal glands are unremarkable. There has been interval placement of a right nephrostomy tube. The previously noted right hydronephrosis has been decompressed. Benign-appearing cyst is noted in the right kidney measuring 4.8 cm in diameter. Left nephrostomy tube is unchanged. Pelvis: Right anterior pelvic wall ostomy is likely related to ileal conduit. The urinary bladder is not identified and surgically absent. The appendix is not clearly seen. Again noted is a subcapital femoral neck fracture of the right hip. IMPRESSION: Subcapital femoral neck fracture right hip. Please see pelvic CT report for further details. New right nephrostomy tube with decompressed hydronephrosis. Gallstones. Cirrhosis and splenomegaly. Reviewed, Interpreted and Dictated by Abdifatah Hunt MD Transcribed by Shani Ray Authenticated and [facility]
--- NOTE | 2025-05-06 10:28 | CT_ITS ---
FINAL REPORT TECHNIQUE: Routine axial images were obtained from the lung apices to below the diaphragm following IV contrast administration. Individualized dose reduction techniques using automated exposure control or adjustment of the mA and/or kV according to the patient size were employed. CLINICAL HISTORY: fall COMPARISON: None FINDINGS: No significant mediastinal mass or adenopathy. No pleural or pericardial effusion is seen. Scarring or atelectasis is noted at the lung bases. The thorax is intact. IMPRESSION: No acute abnormality identified. Reviewed, Interpreted and Dictated by Abdifatah Hunt MD Transcribed by Shani Ray Authenticated and [facility]
--- NOTE | 2025-05-06 10:29 | ED_ITS ---
<Statement entered by Jossy Desouza MD - 05/07/25 21:35> I was consulted by the BLANCA, and we discussed the complexity of the problems being addressed. I approved the treatment and management plan for this patient's care in the emergency department, thus performing a substantive portion of the medical decision making. Jossy Desouza MD, GIOVANA, FACEP Discharge Plan Disposition Patient Disposition: Admitted Condition: Fair Clinical Impressions Clinical Impression: Femoral neck fracture Qualifiers: Encounter type: initial encounter Fracture type: closed Laterality: right Q ualified Code(s): S72.001A - Fracture of unspecified part of neck of right femur, initial encounter for closed fracture Discharge ED Provider: Jossy Desouza General Adult HPI General Chief complaint: Fall Stated complaint: fall Time Seen by Provider: 05/06/25 10:03 Mode of Arrival: EMS Source of Information: Patient and EMS Description of Symptoms (Recalled from ER Triage Doc. by RN): dementia, forgets he cant walk, fell at home skin tears to elbows and r hip pain History of Present Illness HPI narrative: 79-year-old male presents to the ED today after sustaining a fall. witnessed fall but was across the room and said patient stood up from his hospital bed grabbed the bedside table with wheels and felt off to his right side onto the right side of his elbow and face. He did not injure his face. Patient does complain of right sided rib pain, back pain, right hip pain. does say that he has chronic back pain. Patient is on hospice from bladder cancer. He has bilateral nephrostomy tubes. He spent 2 months in the hospital and within the first 24 hours home he has went down through 4 times according to the . She says she has been next to him those few times. But this time she was across the room. He does complain that when he lifts his right leg it does hurt his right hip. He also complains of right knee pain but this is chronic and he has had an MRI of this right knee pain. Patient does have skin tears to right elbow. Related Data Home Medications ?Medication ?Instructions ?Recorded ?Confirmed allopurinol 100 mg tablet 100 mg PO DAILY 11/29/2311/30 atorvastatin 20 mg tablet 20 mg PO HS 11/29/23 5 metoprolol succinate 50 mg 50 mg PO DAILY 11/29/2311/30 tablet,extended release 24 hr quetiapine 50 mg tablet 50 mg PO HS 11/29/23 5 polyethylene glycol 3350 17 17 g PO NEEDED PRN Diar shiela 03/17/24 05/06/25 gram/dose oral powder (ClearLax) diphenoxylate-atropine 2.5 2.5 tab PO QID PRN Diarrhea 05/06/25 05/06/25 mg-0.025 mg tablet donepezil 5 mg tablet 10 mg PO HS 05/06/25 5 hydroxyzine HCl 25 mg tablet 25 mg PO Q6H PRN Itching 05/06/25 05/06/25 melatonin 5 mg tablet 5 mg PO HS PRN Sleep 5 05/06/25 omeprazole 40 mg capsule,delayed 40 mg PO DAILY 05/06/25 release Previous Rx's ?Medication ?Instructions ?Recorded sennosides 8.6 mg-docusate sodium 1 tab PO BID 30 days #60 tabs 03/18/24 50 mg tablet (Stimulant Laxative Plus) ondansetron 4 mg disintegrating 4 mg PO Q8H PRN nausea and 10/30/24 tablet vomiting 4 days #12 tabs Allergies Allergy/AdvReac Type Severity Reaction Status Date / Time No Known Allergies Allergy Verified 11/28/23 22:20 [facility] Disclaimer: The information contained in this section may have been updated after the patient was seen, as this information can be updated by other users. Medical History (Updated 05/06/25 @ 17:33 by Wally Banks DO) Skin cancer Diabetes mellitus type 2, controlled Bladder cancer Dementia Surgical History History of urostomy Family History (Updated 11/29/23 @ 02:21 by Keshia Poe RN) Mother Dementia Father Dementia Social History (Updated 03/17/24 @ 21:35 by Keshia Poe RN) Smoking Status: Unknown if ever smoked years smoked: 30 smoking status stop date: 30 years ago alcohol intake: never current occupational status: unemployed and retired Travel in the last 8 weeks?: None Have you lived/traveled outside US in past 30 days?: No Contact w/someone who lives/traveled outside US past 30 days?: No Exposure to someone with infectious disease in past 14 days?: No Do you have a fever (greater than 100.4 F or 38 C)?: No Have you tested positive for COVID-19?: No Exposed to someone with COVID-19 in past 14 days?: No Do you have a sore throat?: No Do you have a cough?: No Do you have any weakness?: No Do you have any diarrhea?: No Are you experiencing any unusual bleeding?: No Do you have any muscle aches/pain?: No Do you have any abdominal pain?: No Are you experiencing loss of taste or smell?: No Other Medical History Have you received the Flu Vaccine for this season: No Have you received the Pneumonia Vaccine: No ROS Obtained: Yes Systems reviewed as appropriate & no additional complaints except as documented Constitutional Constitutional: Reports as per HPI Physical Exam General General appearance: alert and in no apparent distress Head Head exam: atraumatic and normocephalic Eye Eye exam: Present PERRL and EOMI ENT ENT exam: Present normal oropharynx and mucous membranes moist Neck Neck exam: Present full ROM and trachea midline Chest Chest inspection: Present normal inspection and tenderness (To right side) Respiratory Respiratory exam: Present normal lung sounds bilaterally Cardiovascular Cardiovascular exam: Present regular rate, normal rhythm, normal heart sounds, +S1 and +S2 Abdominal Exam Abdominal exam: Present soft and normal bowel sounds Extremities Exam Extremities exam: Present full ROM, tenderness (To right hip) and normal capillary refill Back Exam Back exam: Present normal inspection Neurological Exam Neurological exam: Present alert and oriented X3 Skin Skin exam: Present warm, dry and erythema (Right elbow with skin tears, bruising on bilateral arms and legs) Medical Decision Making Medical Records Screening: Per USPSTF and CDC recommendations, given the prevalence of disease in our region, it is our hospital?s policy to screen for HIV and viral Hepatitis for all patients aged 18 and over and those with ongoing risk factors. Andres Inquiry Pt receiving controlled substance: No Andres was queried for this patient: No Vital Signs: 05/06/25 09:46 05/06/25 10:00 05/06/25 10:30 Temperature Pulse Rate 61 71 Pulse Rate [Right Brachial] 63 Respiratory Rate 16 15 Blood Pressure 150/76 H 119/90 Blood Pressure [Right Arm] 147/81 H Blood Pressure Mean 100 Blood Pressure Mean [Right Arm] 103 Blood Pressure Source [Right Arm] Automatic Cuff Blood Pressure Position [Right Arm] Sitting 02 Sat by Pulse Oximetry 100 99 99 Oxygen Delivery Method Room Air 05/06/25 11:01 05/06/25 11:30 05/06/25 12:30 Temperature Pulse Rate 71 71 92 H Pulse Rate [Right Brachial] Respiratory Rate Blood Pressure 138/64 125/63 148/70 H Blood Pressure [Right Arm] Blood Pressure Mean Blood Pressure Mean [Right Arm] Blood Pressure Source [Right Arm] Blood Pressure Position [Right Arm] 02 Sat by Pulse Oximetry 97 98 96 Oxygen Delivery Method 05/06/25 13:00 05/06/25 13:32 05/06/25 14:30 Temperature 98 F Pulse Rate 85 86 71 Pulse Rate [Right Brachial] Respiratory Rate 20 Blood Pressure 121/74 118/71 144/71 H Blood Pressure [Right Arm] Blood Pressure Mean Blood Pressure Mean [Right Arm] Blood Pressure Source [Right Arm] Blood Pressure Position [Right Arm] 02 Sat by Pulse Oximetry 99 96 Oxygen Delivery Method 05/06/25 15:00 Temperature Pulse Rate Pulse Rate [Right Brachial] Respiratory Rate Blood Pressure Blood Pressure [Right Arm] Blood Pressure Mean Blood Pressure Mean [Right Arm] Blood Pressure Source [Right Arm] Blood Pressure Position [Right Arm] 02 Sat by Pulse Oximetry Oxygen Delivery Method Room Air Lab Data Lab Results 05/06/25 09:53: WBC 7.5, RBC 4.02 L, Hgb 10.2 L, Hct 33.6 L, MCV 83.6, MCH 25.4 L, MCHC 30.4 L, RDW 19.2 H, Plt Count 150, MPV 10.8 H, Neut % (Auto) 77.6, Lymph % (Auto) 13.9, Gordon % (Auto) 5.6, Eos % (Auto) 1.7, Baso % (Auto) 0.5, Neut # (Auto) 5.8, Lymph # (Auto) 1.0, Gordon # (Auto) 0.4, Eos # (Auto) 0.1, Baso # (Auto) 0.0, Sodium 137, Potassium 4.5, Chloride 106, Carbon Dioxide 23, Anion Gap 12.5, BUN 27 H, Creatinine 1.80 H, Estimated Creat Clear 54, Estimated GFR 37 L, Est GFR ( Amer) 44 L, Glucose 131 H, Calcium 9.1, Magnesium 1.8, Total Bilirubin 1.3, AST 34, ALT 22, Alkaline Phosphatase 111, Total Protein 6.5, Albumin 3.7, Globulin 2.8, Albumin/Globulin Ratio 1.3 05/06/25 09:53 05/06/25 09:53 Orders (Tests/Meds): ED MEDICATIONS Generic Name Dose Route Start Last Admin Trade Name Freq PRN Reason Stop Dose Admin Hydrocodone Bitart/Acetaminophen 1 tab 05/06/25 13:41 Hydrocodone/Apap 5/325 Mg Tablet PO 06/05/25 13:40 Q4HP PRN Mild to Moderate Pain (1-6) Donepezil HCl 10 mg 05/06/25 21:00 Donepezil 5mg Tab PO 06/05/25 20:59 HS OLU Linezolid 600 mg 05/06/25 21:00 Linezolid 600 Mg Tablet PO 05/16/25 20:59 BID OLU Melatonin 5 mg 05/06/25 21:00 Melatonin 5mg Tablet PO 06/05/25 20:59 HS OLU Miscellaneous 1 each 05/06/25 17:41 05/06/25 18:40 Pharmacy Consult Request NOTAPPLIC 05/06/25 17:42 1 each [facility]SULT [facility]ARM[facility]Y [facility] Administration Morphine Sulfate 4 mg 05/06/25 13:47 05/06/25 16:43 Morphine 4mg/Ml Syringe IV 06/05/25 13:46 4 mg Q4HP PRN Administration Severe Pain (7-10) Non-Formulary Medication 50 mg 05/06/25 21:00 Quetiapine PO 06/05/25 20:59 HS OLU Ondansetron HCl 4 mg 05/06/25 13:41 Ondansetron 4mg/2ml Vial IV 06/05/25 13:40 Q8HP PRN Nausea Pantoprazole Sodium 40 mg 05/06/25 21:00 Pantoprazole 40mg Tablet PO 06/05/25 20:59 HS OLU Polyethylene Glycol 17 gm 05/06/25 18:55 Polyethylene Glycol 3350 238gm Powder PO 06/05/25 18:54 NEEDED PRN Diarrhea Discontinued Medications Generic Name Dose Route Start Last Admin Trade Name Freq PRN Reason Stop Dose Admin Sodium Chloride 1,000 mls @ 999 mls/hr 05/06/25 11:37 05/06/25 11:47 Sod Chlor 0.9% 1000ml Bag IV 05/06/25 12:37 999 mls/hr .Q1H1M ONE Administration Iopamidol 75 ml 05/06/25 12:01 05/06/25 12:01 Iopamidol-370 (76%);100ml Bottle IV 05/06/25 12:02 75 ml ONCE ONE Administration Morphine Sulfate 2 mg 05/06/25 10:50 05/06/25 10:55 Morphine 2mg/Ml Syringe IV 05/06/25 10:51 2 mg ONCE ONE Administration Morphine Sulfate 2 mg 05/06/25 13:45 05/06/25 13:51 Morphine 2mg/Ml Syringe IV 05/06/25 13:46 2 mg ONCE ONE Administration Ondansetron HCl 4 mg 05/06/25 10:50 05/06/25 10:54 Ondansetron 4mg/2ml Vial IV 05/06/25 10:51 4 mg ONCE ONE Administration Sodium Chloride 10 ml 05/06/25 12:01 05/06/25 12:01 Sodium Chloride 0.9% 10ml Syr (Rad Only) IV 05/06/25 12:02 10 ml ONCE ONE Administration ORDERS Category Date Time Status CT abdomen pelvis w con Stat Cat Scan 05/06/25 10:[address] cervical spine wo con Stat Cat Scan 05/06/25 10:[address] chest w con Stat Cat Scan 05/06/25 10:[address] head/brain wo con Stat Cat Scan 05/06/25 10:[address] lumbar spine wo con Stat Cat Scan 05/06/25 10:[address] pelvis wo con Stat Cat Scan 05/06/25 10:[address] thoracic spine wo con Stat Cat Scan 05/06/25 10:12 Completed Elbow XR right minimum 3 views [XR elbow RT min 3V] Exams 05/06/25 10:12 Completed Stat CBC [Complete Blood Count Auto Diff] Stat Lab 05/06/25 09:53 Completed Comprehensive Metabolic Panel Stat Lab 05/06/25 09:53 Completed Magnesium Stat Lab 05/06/25 09:53 Completed Prothrombin Time INR AMLAB Lab 05/07/25 06:00 Ordered Medical Decision Narrative: patient is a 79-year-old male presenting to the emergency department for evaluation of fall at home. Patient got up out of his hospital bed and grabbed a hold of the bedside table and fell onto his right side. was across the room and saw the fall. Patient does have dementia.. Patient is hemodynamically stable and nontoxic-appearing upon arrival, afebrile. Differential diagnosis includes trauma versus fractures, sprains and strains among others. Workup will be conducted with hematologic labs, specific imaging. Initial inventions include crystalloid bolus, analgesics. Initial workup reviewed by me hematologic labs are remarkable for nothing acute but patient is a hospice patient. Formal imaging read remarkable for acute right hip fracture. All other scans negative. Discussed with Dr. Desouza. Discussed with patient and his family. Patient's family would like to have intervention for the hip fracture if not for anything but pain control. Patient is in great deal of pain. Patient given morphine while here in the ED. I did talk to Dr. Banks who says to admit to the hospitalist for evaluation. Did talk to Indy peters patient to hospital medicine. Critical Care Critical Care Time Critical Care Time: No
[2025-05-06] MEDS: ONDANSETRON 4MG/2ML VIAL 4 MG IV (10:54)
[2025-05-06] MEDS: MORPHINE 2MG/ML SYRINGE 2 MG IV ×2 (10:55→13:51)
[2025-05-06 11:14] LABS: Hematocrit 33.6 % (42.0-52.0); Hemoglobin 10.2 g/dL (14.1-18.0); Immature Granulocytes % 0.7 %; Mean Corpuscular HGB Conc 30.4 g/dL (31.8-35.4); Mean Corpuscular Hemoglobin 25.4 pg (27.0-31.2); Mean Corpuscular Volume 83.6 fl (80-94); Nucleated Red Blood Cells % 0 %; Platelet Count 150 K/mm3 (142-424); Red Blood Count 4.02 M/mm3 (4.60-6.20); Red Cell Distribution Width-SD 56.6 fL; White Blood Count 7.5 K/mm3 (4.8-10.8)
[2025-05-06 11:15] LABS: Alanine Aminotransferase 22 U/L (12-78); Albumin Level 3.7 g/dl (3.5-5.0); Albumin/Globulin Ratio 1.3 (1.1-1.8); Alkaline Phosphatase 111 U/L (38-126); Anion Gap 12.5 mEq/L (5-15); Aspartate Amino Transferase 34 U/L (17-59); Bilirubin,Total 1.3 mg/dl (0.2-1.3); Blood Urea Nitrogen 27 mg/dl (9-20); Calcium 9.1 mg/dl (8.4-10.2); Carbon Dioxide 23 mmol/L (22.0-30.0); Chloride 106 mmol/L (98-107); Creatinine Clearance Estimated 54 mL/min (50-200); Creatinine,Serum 1.80 mg/dl (0.66-1.25); Estimated Glomerular Filt Rate 37 ml/min (>60); GFR (African American) 44 ML/MIN (>60); Globulin 2.8 g/dL (1.3-3.2); Glucose 131 mg/dl (74-100); Magnesium 1.8 mg/dl (1.6-2.3); Potassium 4.5 mmoL/L (3.5-5.1); Sodium 137 mmol/L (136-145); Total Protein,Serum 6.5 g/dl (6.3-8.2)
--- NOTE | 2025-05-06 11:29 | PC.NURSE ---
i spoke with Hospice regarding pt. they would like an update with disposition
--- NOTE | 2025-05-06 11:37 | PC.NURSE ---
Provider aware of GFR 37, okay w/ proceeding w/ CT and then giving IVF after.
[2025-05-06] MEDS: 0.9 % SODIUM CHLORIDE 1000ML 1,000 ML 999 ML IV (11:47)
[2025-05-06] MEDS: SODIUM CHLORIDE 0.9% 10ML SYR (RAD ONLY) 10 ML IV (12:01)
[2025-05-06] MEDS: IOPAMIDOL-370 (76%);100ML BOTTLE 75 ML IV (12:01)
--- NOTE | 2025-05-06 13:18 | PC.NURSE ---
Jossy Vázquez in contact w/ Dr. Banks
--- NOTE | 2025-05-06 13:37 | PC.NURSE ---
Dr Desouza speaking to Ilene Sellers NP about admission
--- NOTE | 2025-05-06 13:48 | PC.NURSE ---
spoke with hospice per family request to update about pt care
--- NOTE | 2025-05-06 13:51 | EXP.HP ---
History of Present Illness *Admission Date: 05/06/25 *Reason for visit:: Fall, right hip pain *History of present illness: 79-year-old male with complex past medical history including history of bladder cancer status post resection of bladder. Has bilateral nephrostomy tubes due to scarring and malfunction of his urostomy. Having recurring kidney infections. Worsening dementia. Progressive decline in functionality. Recently admitted to hospice a week ago due to his decline in functional limitations. Presented today to the ER after getting up at home and falling with production of right hip pain. On presentation, patient is alert to self but disoriented to situation. Knows he fell. Complains of some right hip pain. Workup in the ER with imaging showing right femoral neck fracture. Kidney function at baseline BUN 27, creatinine 1.8. Orthopedics consulted, amenable to surgery if admitted to medicine. I agreed to admit for further care. On arrival to the floor, patient appears comfortable. Is repetitive with his answers. Repeats multiple times over the course of interview that he made a mistake trying to get up. Does not seem to recall that he has made the statement multiple times. Oriented to self only. Afebrile. Hemodynamically stable. On room air. [facility] Disclaimer: The information contained in this section may have been updated after the patient was seen, as this information can be updated by other users. Medical History (Updated 05/06/25 @ 21:06 by Darrell Kovacs MD) Skin cancer Diabetes mellitus type 2, controlled Bladder cancer Dementia Surgical History (Updated 05/06/25 @ 21:06 by Darrell Kovacs MD) History of urostomy Family History Mother Dementia Father Dementia Social History Smoking Status: Unknown if ever smoked years smoked: 30 smoking status stop date: 30 years ago alcohol intake: never current occupational status: unemployed and retired Travel in the last 8 weeks?: None Have you lived/traveled outside US in past 30 days?: No Contact w/someone who lives/traveled outside US past 30 days?: No Exposure to someone with infectious disease in past 14 days?: No Do you have a fever (greater than 100.4 F or 38 C)?: No Have you tested positive for COVID-19?: No Exposed to someone with COVID-19 in past 14 days?: No Do you have a sore throat?: No Do you have a cough?: No Do you have any weakness?: No Do you have any diarrhea?: No Are you experiencing any unusual bleeding?: No Do you have any muscle aches/pain?: No Do you have any abdominal pain?: No Are you experiencing loss of taste or smell?: No Other Medical History Have you received the Flu Vaccine for this season: No Have you received the Pneumonia Vaccine: No Review of Systems Review of Systems Review of systems (narrative): 14 point review of systems performed, pertinent positives and negatives as per HPI Meds Home Medications and Allergies Home Medications ?Medication ?Instructions ?Recorded ?Confirmed ?Type allopurinol 100 mg tablet 100 mg PO DAILY 11/29/23 05/06/25 History atorvastatin 20 mg tablet 20 mg PO HS 11/29/23 05/06/25 History metoprolol succinate 50 mg 50 mg PO DAILY 11/29/23 05/06/25 History tablet,extended release 24 hr quetiapine 50 mg tablet 50 mg PO HS 11/29/23 05/06/25 History polyethylene glycol 3350 17 17 g PO NEEDED PRN Diarrhea 03/17/24 05/06/25 History gram/dose oral powder (ClearLax) sennosides 8.6 mg-docusate sodium 1 tab PO BID 30 days #60 tabs 03/18/24 05/06/25 Rx 50 mg tablet (Stimulant Laxative Plus) ondansetron 4 mg disintegrating 4 mg PO Q8H PRN nausea and 10/30/24 05/06/25 Rx tablet vomiting 4 days #12 tabs diphenoxylate-atropine 2.5 2.5 tab PO QID PRN Diarrhea 05/06/25 05/06/25 History mg-0.025 mg tablet donepezil 5 mg tablet 10 mg PO HS 05/06/25 05/06/25 History hydroxyzine HCl 25 mg tablet 25 mg PO Q6H PRN Itching 05/06/25 05/06/25 History melatonin 5 mg tablet 5 mg PO HS PRN Sleep 05/06/25 05/06/25 History omeprazole 40 mg capsule,delayed 40 mg PO DAILY 05/06/25 05/06/25 History release New Prescriptions to Start Prescriptions: Allergies Allergy/AdvReac Type Severity Reaction Status Date / Time No Known Allergies Allergy Verified 11/28/23 22:20 Exam Data for Last 24 hours Vital signs and Labs for Last 24 Hours: Pulse Resp BP Pulse Ox O2 Del Method 85 15 121/74 99 Room Air 05/06/25 13:00 05/06/25 10:30 05/06/25 13:00 05/06/25 13:00 05/06/25 09:46 Laboratory Results - last 24 hr 05/06/25 09:53: WBC 7.5, RBC 4.02 L, Hgb 10.2 L, Hct 33.6 L, MCV 83.6, MCH 25.4 L, MCHC 30.4 L, RDW 19.2 H, Plt Count 150, MPV 10.8 H, Neut % (Auto) 77.6, Lymph % (Auto) 13.9, Logan % (Auto) 5.6, Eos % (Auto) 1.7, Baso % (Auto) 0.5, Neut # (Auto) 5.8, Lymph # (Auto) 1.0, Logan # (Auto) 0.4, Eos # (Auto) 0.1, Baso # (Auto) 0.0, Sodium 137, Potassium 4.5, Chloride 106, Carbon Dioxide 23, Anion Gap 12.5, BUN 27 H, Creatinine 1.80 H, Estimated Creat Clear 54, Estimated GFR 37 L, Est GFR ( Amer) 44 L, Glucose 131 H, Calcium 9.1, Magnesium 1.8, Total Bilirubin 1.3, AST 34, ALT 22, Alkaline Phosphatase 111, Total Protein 6.5, Albumin 3.7, Globulin 2.8, Albumin/Globulin Ratio 1.3 I & O for Last 24 hours: Intake & Output 05/03/25 05/04/25 05/05/25 05/06/25 23:59 23:59 23:59 23:59 Weight 111.13 kg Constitutional Constitutional: mild distress, obese, chronically ill appearing and cooperative *Routine HEENT Exam Head: Present normocephalic Eye: Present EOMI and PERRL ENT: Present mucous membranes moist *Routine Neck Exam Neck: Present supple; Absent lymphadenopathy *Routine Respiratory Exam Respiratory: Present CTA bilaterally; Absent rhonchi, wheezes or crackles *Routine Cardiovascular Exam Cardiovascular: Present RRR *Routine Abdominal Exam Abdominal: Present soft and normoactive bowel sounds; Absent tenderness *Routine Rectal Exam Rectal:: deferred *Routine Genitalia Exam Genitalia:: deferred *Routine Extremities Exam Extremities: Present edema (Trace bilateral lower extremity); Absent cyanosis or clubbing Comments: Legs equal length, right hip tender to palpation. Not wanting to move right leg *Routine Skin Exam Skin: Present intact and warm; Absent rash *Routine Neurological Exam Neurological: Present alert, altered mental status and moving all extremities (Hesitant to move right leg however due to pain in hip) Comments: Oriented to self. Repetitive in answers. Mentioned his regret for trying to get up and walk multiple times. Exhibit short-term memory deficits Assessment and Plan *Assessment and plan (1) Acute right hip pain: Status: Acute Category: Medical Code(s): M25.551 - Pain in right hip (2) Femoral neck fracture: Status: Acute Qualifiers: Encounter type: initial encounter Fracture type: closed Laterality: right Qualified Code(s): S72.001A - Fracture of unspecified part of neck of right femur, initial encounter for closed fracture Category: Medical Code(s): S72.009A - Fracture of unspecified part of neck of unspecified femur, initial encounter for closed fracture (3) CKD (chronic kidney disease), stage IV: Status: Acute Category: Medical Code(s): N18.4 - Chronic kidney disease, stage 4 (severe) (4) Diabetes: Status: Acute Qualifiers: Diabetes mellitus type: type 2 Diabetes mellitus remote computer terminal operator insulin use: with fdc use Diabetes mellitus complication status: with other specified complication Qualified Code(s): E11.69 - Type 2 diabetes mellitus with other specified complication; Z79.4 - remote computer terminal operator (current) use of insulin Category: Medical Code(s): E11.9 - Type 2 diabetes mellitus without complications (5) Hx of bladder cancer: Status: Acute Category: Medical Code(s): Z85.51 - Personal history of malignant neoplasm of bladder (6) H/O total cystectomy: Status: Acute Category: Surgical Code(s): Z90.6 - Acquired absence of other parts of urinary tract (7) Dementia: Status: Chronic Category: Medical Code(s): F03.90 - Unspecified dementia, unspecified severity, without behavioral disturbance, psychotic disturbance, mood disturbance, and anxiety (8) History of insertion of nephrostomy tube: Status: Acute Category: Surgical Code(s): Z98.890 - Other specified postprocedural states (9) Recurrent UTI: Status: Acute Category: Medical Code(s): N39.0 - Urinary tract infection, site not specified (10) Complicated UTI (urinary tract infection): Status: Acute Category: Medical Code(s): N39.0 - Urinary tract infection, site not specified Plan 79-year-old male with history of dementia, bladder cancer status post cystectomy, bilateral nephrostomy tubes and recurrent UTIs. Recently admitted to hospice. Got up this morning at home and fell breaking his right hip. Presented to the ER because of pain. Discussed case with ER physician, request admission for surgical eval and definitive management of fracture. States family is interested in palliative surgery to secure fracture and ease pain. I decided to admit for further care. Orthopedics consulted. Problems addressed as follows: Right hip pain Right femoral neck fracture Frequent falls - CT of pelvis obtained. Per my review there appears to be a right femoral neck fracture. Nondisplaced. - Orthopedics consulted, discussed case, patient has elevated risk for surgery given his CKD 4, limited mobility. Family would like to proceed with palliative procedure however to anchor fracture and relieve pain. Orthopedics will plan to attempt pending to secure fracture. Discussed risks of infection/infected hardware given patient's recurrent urinary tract/kidney infections. Family states understanding. Continuing antibiotics at this time with Zyvox 600 mg twice daily and Levaquin 750 mg every 48 hours (renally dosed). - Continue hydrocodone 5 mg as needed every 4 hours for moderate to severe pain. Morphine 4 mg IV every 4 hours for severe pain. Monitor for toxicity. CKD 3: Caution with nephrotoxins. At baseline with BUN 27, creatinine 1.8. Hypertension: Will hold metoprolol succinate at this time pending surgery. Resume after procedure continue Seroquel 50 mg nightly for sleep aid along with melatonin 5 mg nightly. Continue donepezil 10 mg nightly for dementia History of bladder cancer status post resection of bladder and creation of urostomy Bilateral nephrostomy tubes Recurrent kidney infection - Obtaining records from [facility] to evaluate microbiology/culture results. Was placed on Zyvox and Levaquin on 04/27. Will continue at this time due to risk for infection of hardware if patient becomes septic again. Continue Zyvox 600 mg twice daily and Levaquin 750 mg every 48 hours renally dosed Full code, family to discuss further patient's CODE STATUS Regular diet, n.p.o. at midnight Lovenox 40 mg subcu once, transition aspirin after surgery Further goals of care discussion and consideration for resuming hospice after surgery versus transitioning to rehab. Therapy to evaluate after hip surgery
--- NOTE | 2025-05-06 13:55 | PC.NURSE ---
Skin tear to RFA and R Elbow cleaned and dressed. Pt repositioned in bed family updated on POC.
--- NOTE | 2025-05-06 14:01 | PC.NURSE ---
dr castillo @ bedside
--- NOTE | 2025-05-06 14:03 | PC.NURSE ---
report called to Harriet JULES
--- NOTE | 2025-05-06 15:42 | PC.NURSE ---
Pt arrived to floor @1500
[2025-05-06] MEDS: MORPHINE 4MG/ML SYRINGE 4 MG IV (16:43)
--- NOTE | 2025-05-06 17:29 | PC.WOUNDNOTE ---
SKIN TEAR TO RIGHT ELBOW SKIN TEAR RIGHT ELBOW SKIN TEAR RIGHT UPPER ARM
--- NOTE | 2025-05-06 17:30 | PC.NURSE ---
PT IS ALERT TO SELF- ABLE TO TELL ME NAME AND BIRTHDAY. OTHERWISE CONFUSED, WHICH IS HIS BASELINE AT THIS POINT WITH HIS DEMENTIA. PT HAS C/O PAIN IN HIS RIGHT HIP, MEDICATED PER JAN. EFFECTIVENESS NOTED. FAMILY STATES MOST PAIN MEDICINE MAKES HIS CONFUSION WORSE BUT THAT THE MORPHINE HAS WORKED WELL. FAILY REMAINS AT BEDSIDE. BED SAFETY IS ON. SKIN TEARS TO RIGHT ARM NOTED-SEE PICTURES. PT HAS REMAINED IN BED THIS SHIFT. HAS A GOOD APPETITE. SURGERY PLANNED FOR TOMORROW. NO OTHER NEEDS OR C/O NOTED. VSS.
--- NOTE | 2025-05-06 17:31 | EXP.ORTH.CON ---
History of Present Illness *Admission Date: 05/06/25 *Reason for visit:: Right hip fracture *History of present illness: 79-year-old male with significant past medical history. He had recently entered hospice this weekend for multiple medical issues. He has dementia. According to his family he was trying to get up from the bed and try to walk suffered a fall onto his hip and had immediate pain was brought to the emergency room for evaluation. He has a long complicated medical history with nephrostomy tubes. He has not been able to walk for at least several weeks going on a couple months. He has been too weak to walk. He also has underlying significant spine issues which cause significant pain. Because of the ongoing local medical issues patient had returned home from rehab and entered hospice. After presented to the emergency room he was found to have femoral neck fracture orthopedics was consulted regarding treatment options. [facility] Disclaimer: The information contained in this section may have been updated after the patient was seen, as this information can be updated by other users. Medical History (Updated 05/06/25 @ 17:33 by Wally Banks DO) Skin cancer Diabetes mellitus type 2, controlled Bladder cancer Dementia Surgical History History of urostomy Family History (Updated 11/29/23 @ 02:21 by Keshia Poe RN) Mother Dementia Father Dementia Social History (Updated 03/17/24 @ 21:35 by Keshia Poe RN) Smoking Status: Unknown if ever smoked years smoked: 30 smoking status stop date: 30 years ago alcohol intake: never current occupational status: unemployed and retired Travel in the last 8 weeks?: None Have you lived/traveled outside US in past 30 days?: No Contact w/someone who lives/traveled outside US past 30 days?: No Exposure to someone with infectious disease in past 14 days?: No Do you have a fever (greater than 100.4 F or 38 C)?: No Have you tested positive for COVID-19?: No Exposed to someone with COVID-19 in past 14 days?: No Do you have a sore throat?: No Do you have a cough?: No Do you have any weakness?: No Do you have any diarrhea?: No Are you experiencing any unusual bleeding?: No Do you have any muscle aches/pain?: No Do you have any abdominal pain?: No Are you experiencing loss of taste or smell?: No Meds Home Medications and Allergies Home Medications ?Medication ?Instructions ?Recorded ?Confirmed ?Type allopurinol 100 mg tablet 100 mg PO DAILY 11/29/23 03/18/24 History atorvastatin 20 mg tablet 20 mg PO HS 11/29/23 03/18/24 History metoprolol succinate 50 mg 50 mg PO DAILY 11/29/23 03/18/24 History tablet,extended release 24 hr quetiapine 50 mg tablet 50 mg PO HS 11/29/23 03/18/24 History polyethylene glycol 3350 17 17 g PO DAILY 03/17/24 03/18/24 History gram/dose oral powder (ClearLax) cefdinir 300 mg capsule 300 mg PO BID 03/18/24 03/18/24 History ferrous sulfate 325 mg (65 mg 325 mg PO DAILY 03/18/24 03/18/24 History iron) tablet (FeroSul) magnesium oxide 400 mg (241.3 mg 400 mg PO DAILY 03/18/24 03/18/24 History magnesium) tablet oxycodone-acetaminophen 7.5 mg-325 1 tab PO Q6HP PRN Moderate Pain 03/18/24 03/18/24 History mg tablet (Scale Score 5-6) sennosides 8.6 mg-docusate sodium 1 tab PO BID 30 days #60 tabs 03/18/24 Rx 50 mg tablet (Stimulant Laxative Plus) levofloxacin 750 mg tablet 750 mg PO DAILY Complicated UTI 10 10/30/24 Rx days #10 tabs ondansetron 4 mg disintegrating 4 mg PO Q8H PRN nausea and 10/30/24 Rx tablet vomiting 4 days #12 tabs New Prescriptions to Start Prescriptions: Allergies Allergy/AdvReac Type Severity Reaction Status Date / Time No Known Allergies Allergy Verified 11/28/23 22:20 Ortho Exam (Inpt) Vital signs and Labs for Last 24 Hours: Temp Pulse Resp BP Pulse Ox O2 Del Method 97.7 F 79 18 166/84 H 98 Room Air 05/06/25 15:18 05/06/25 15:18 05/06/25 15:18 05/06/25 15:18 05/06/25 15:18 05/06/25 17:14 Laboratory Results - last 24 hr 05/06/25 09:53: WBC 7.5, RBC 4.02 L, Hgb 10.2 L, Hct 33.6 L, MCV 83.6, MCH 25.4 L, MCHC 30.4 L, RDW 19.2 H, Plt Count 150, MPV 10.8 H, Neut % (Auto) 77.6, Lymph % (Auto) 13.9, [place] % (Auto) 5.6, Eos % (Auto) 1.7, Baso % (Auto) 0.5, Neut # (Auto) 5.8, Lymph # (Auto) 1.0, [place] # (Auto) 0.4, Eos # (Auto) 0.1, Baso # (Auto) 0.0, Sodium 137, Potassium 4.5, Chloride 106, Carbon Dioxide 23, Anion Gap 12.5, BUN 27 H, Creatinine 1.80 H, Estimated Creat Clear 54, Estimated GFR 37 L, Est GFR ( Amer) 44 L, Glucose 131 H, Calcium 9.1, Magnesium 1.8, Total Bilirubin 1.3, AST 34, ALT 22, Alkaline Phosphatase 111, Total Protein 6.5, Albumin 3.7, Globulin 2.8, Albumin/Globulin Ratio 1.3 I & O for Labs for Last 24 Hours: Intake & Output 05/03/25 05/04/25 05/05/25 05/06/25 23:59 23:59 23:59 23:59 Output Total 550 / 550 Balance -550 / -550 Weight 248 lb 4.8 oz Head: Present normocephalic and atraumatic Additional findings:: Right hip: He is able to flex his right hip approximately 20 degrees with no pain rotating the hip does cause pain. He is laying on his right side with minimal discomfort after pain medication. Skin is intact grossly neurovascular intact. CT scan of the right hip shows largely nondisplaced slightly impacted femoral neck fracture on the right side. Results Labs 05/06/25 09:53 05/06/25 09:53 Labs: Abnormal lab results 05/06/25 Range/Units 09:53 RBC 4.02 L (4.60-6.20) M/mm3 Hgb 10.2 L (14.1-18.0) g/dL Hct 33.6 L (42.0-52.0) % MCH 25.4 L (27.0-31.2) pg MCHC 30.4 L (31.8-35.4) g/dL RDW 19.2 H (11.5-17.5) % MPV 10.8 H (7.4-10.4) fl BUN 27 H (9-20) mg/dl Creatinine 1.80 H (0.66-1.25) mg/dl Estimated GFR 37 L (>60) ml/min Est GFR ( Amer) 44 L (>60) ML/MIN Glucose 131 H (74-100) mg/dl H & H 05/06/25 Range/Units 09:53 Hgb 10.2 L (14.1-18.0) g/dL Hct 33.6 L (42.0-52.0) % All other labs normal. Assessment and Plan *Assessment and plan (1) Femoral neck fracture: Status: Acute Qualifiers: Encounter type: initial encounter Fracture type: closed Laterality: right Qualified Code(s): S72.001A - Fracture of unspecified part of neck of right femur, initial encounter for closed fracture Category: Medical Code(s): S72.009A - Fracture of unspecified part of neck of unspecified femur, initial encounter for closed fracture Plan I met with the family in the emergency room. I spoke with his his son and other son via phone along with [id number] and try to formulate a treatment plan for his current situation. Obviously he has significant underlying medical issues of note he has been septic several times but severely a couple times in the last few months. Family is discussing which options would allow them to continue with reasonable conservative treatment but also decrease the amount of pain that he has in his hip. I reviewed the CT scan. We discussed the possibility of hemiarthroplasty of the hip. They are very hesitant to proceed with this in depth of a surgery given his recent admission to hospice and is recent bout with sepsis. He would be at very high risk for operative intervention for hemiarthroplasty in relation to complications. I reviewed the CT scan with him in depth there is slight impaction of the femoral head I explained to them the blood supply of the femoral head. A smaller surgery for placing cannulated screws will allow for decreased pain in the hip. This surgical intervention would not be largely invasive and potentially have a lower threshold for infection. I also however explained that if the blood supply to the femoral head is compromised this operative intervention with cannulated screws would not be adequate and potentially could require a future surgery for hardware removal and conversion to hemiarthroplasty. They fully understand these risks if the fracture remains nondisplaced cannulated screws would be an adequate treatment decrease his surgical time surgical exposure and risk for infection in this way they wish to proceed. I do think this is a viable option given the findings on the CT scan. His prognosis for walking again is poor given the baseline that he presented with his rehabilitation potential is poor. That being said they would like to have intervention if possible to decrease the amount of pain that he was having in his hip. PROPOSED SURGERY: Cannulated screw fixation right femoral neck fracture the risks and benefits of the proposed surgery were discussed in depth with the patient. Potential complications including inherent risk of anesthesia, infection, neurovascular damage, DVT, and rare but real potential loss of limb or life were all reviewed. Patient voices understanding and seems to understand to my satisfaction and wishes to proceed with surgery. I gave them adequate time to ask any questions they have pertaining to this surgery and answered all of them to the best of my ability. I gave them no guarantees in regards to outcomes of this surgery.
[2025-05-06] MEDS: PHARMACY CONSULT REQUEST 1 EACH NOTAPPLIC (18:40)
[2025-05-06] MEDS: LEVOFLOXACIN/D5W 750 MG/150 ML 750 MG/150 ML PIGGYBACK 100 MG IV (20:00)
[2025-05-06] MEDS: MELATONIN 5MG TABLET 5 MG PO (20:00)
[2025-05-06] MEDS: PANTOPRAZOLE 40MG TABLET 40 MG PO (20:00)
[2025-05-06] MEDS: PATIENT'S OWN HOME MEDICATION (Quetiapine 50 mg tablet) 50 EACH PO (20:00)
[2025-05-06] MEDS: LINEZOLID 600 MG TABLET PO (20:00)
[2025-05-07] VITALS (17 sets, daily range): BP systolic 108–145; BP diastolic 54–94; PULSE 64–91; RESP 14–18; TEMP 36.3–43; O2SAT 94–100; BMI 31.4
--- NOTE | 2025-05-07 04:10 | PC.NURSE ---
Patient is alert and oriented to self, occasionally oriented to situation; expressed confusion this shift during wakeful periods. His has remained at the bedside. He was observed to have eyes closed, respirations even and unlabored on room air, and no apparent distress throughout the majority of the night. Patient complains of moderate right hip/thigh pain during any kind of movement of the affected lower extremity; patient denied having pain while at rest this shift. Scheduled medications were administered per JAN. Skin tears noted to right upper extremity; dressings are clean, dry, and intact. Urostomy to the right lower abdominal quadrant was assessed, is not of use. Bilateral nephrostomy tubes utilized for urination needs, catheter bags are secured below the level of the bladder to the patient's legs. Urine output documented accordingly. Brief utilized for defecation needs; no bowel movement thus far this shift. Patient requires vast assistance during turning/repositioning in bed at this time, bed rest encouraged. Auscultation of heart, lungs, and bowels within normal findings. At this time, the patient is resting in bed without any further complaints. No new needs thus far. Bed alarm on. Call light within reach.
--- NOTE | 2025-05-07 04:27 | PC.NURSE ---
Patient is alert and oriented to self, occasionally oriented to situation; expressed confusion this shift during wakeful periods. His has remained at the bedside. He was observed to have eyes closed, respirations even and unlabored on room air, and no apparent distress throughout the majority of the night. Patient complains of moderate right hip/thigh pain during any kind of movement of the affected lower extremity; patient denied having pain while at rest this shift. Scheduled medications were administered per JAN. Skin tears noted to right upper extremity; dressings are clean, dry, and intact. Urostomy to the right lower abdominal quadrant was assessed, is not of use. Bilateral nephrostomy tubes utilized for urination needs, catheter bags are secured to the patient's lower legs/calves. Urine output documented accordingly. Brief utilized for defecation needs; no bowel movement thus far this shift. Patient requires vast assistance during turning/repositioning in bed at this time, bed rest encouraged. Auscultation of heart, lungs, and bowels within normal findings. At this time, the patient is resting in bed without any further complaints. No new needs thus far. Bed alarm on. Call light within reach.
[2025-05-07] MEDS: HYDROCODONE/APAP 5/325 MG TABLET 1 TAB PO ×2 (05:00→20:06)
--- NOTE | 2025-05-07 08:00 | SW/DCPLANNER ---
Addendum entered by Elena Mckeon 05/08/25 11:42: I have updated Marya w/ Hospice that patient will discharge home this afternoon. Addendum entered by Elena Mckeon 05/08/25 08:56: I spoke w/ patient's this AM regarding discharge planning. Patient was able to work w/ PT some this AM. Per they plan to return home w/ patient to re admit to Hospice services. I will update Marya w/ Hospice. Patient could return home today pending Ortho. Addendum entered by Elena Mckeon 05/07/25 11:06: I spoke w/ patient's and son/daughter in law regarding discharge plans after surgery. Per family they would like to see how patient does w/ therapy after surgery. Family is however leaning more towards patient returning home w/ family assistance and Hospice services at discharge. Surgery is planned for today. I will continue to follow up. Addendum entered by Elena Mckeon 05/07/25 08:50: Per Marya w/ Hospice patient did revoke Hospice services yesterday 05/06/25. Original Note: Patient is currently established w/ Hospice services. Updated patient information has been faxed. I will follow up w/ Marya at Hospice this AM.
[2025-05-07] MEDS: LINEZOLID 600 MG TABLET PO ×2 (08:07→20:06)
--- NOTE | 2025-05-07 10:22 | P.PN_ITS ---
<Statement entered by Darrell Kovacs MD - 05/07/25 13:57> Rounded on patient after nurse practitioner. Personally examined and interviewed patient. Agree with exam findings and care plan as documented. Subjective *Date: 05/07/25 *Time: 13:46 Interval history: Patient is laying in bed resting. Patient's is at bedside. She is POA and states that they would like to make patient a DNR/DNI. She also states that they would like to return home with hospice after the procedure today. Medical Exam Vital signs and Labs for Last 24 Hours: Vital Signs Temp Pulse Pulse Pulse Resp BP BP 05/07/25 09:00 05/07/25 08:50 97.7 F 64 16 116/66 05/07/25 08:00 05/07/25 08:00 97.7 F 64 16 116/66 05/07/25 06:35 05/07/25 05:00 05/07/25 04:00 98.0 F 73 16 134/67 05/07/25 03:00 05/07/25 01:00 05/06/25 23:00 05/06/25 21:00 05/06/25 20:00 05/06/25 20:00 98.0 F 74 16 162/75 H 05/06/25 18:52 05/06/25 17:14 05/06/25 17:00 05/06/25 15:18 97.7 F 79 18 166/84 H 05/06/25 15:00 05/06/25 14:30 98 F 71 20 144/71 H 05/06/25 13:32 86 118/71 05/06/25 13:00 85 121/74 05/06/25 12:30 92 H 148/70 H 05/06/25 11:30 71 125/63 05/06/25 11:01 71 138/64 05/06/25 10:30 71 15 119/90 Pulse Ox O2 Del Method 05/07/25 09:00 Room Air 05/07/25 08:50 95 Room Air 05/07/25 08:00 Room Air 05/07/25 08:00 95 Room Air 05/07/25 06:35 Room Air 05/07/25 05:00 Room Air 05/07/25 04:00 94 L Room Air 05/07/25 03:00 Room Air 05/07/25 01:00 Room Air 05/06/25 23:00 Room Air 05/06/25 21:00 Room Air 05/06/25 20:00 Room Air 05/06/25 20:00 97 Room Air 05/06/25 18:52 Room Air 05/06/25 17:14 Room Air 05/06/25 17:00 Room Air 05/06/25 15:18 98 Room Air 05/06/25 15:00 Room Air 05/06/25 14:30 05/06/25 13:32 96 05/06/25 13:00 99 05/06/25 12:30 96 05/06/25 11:30 98 05/06/25 11:01 97 05/06/25 10:30 99 Intake and Output 05/06/25 05/07/25 05/07/25 23:59 07:59 15:59 Intake Total 270 / 390 120 / 120 Output Total 300 / 1050 375 / 475 100 / 475 Balance -30 / -660 -255 / -355 -100 / -355 Intake: Intake, Oral Amount 270 / 390 120 / 120 Output: Output, Urine Amount 300 / 1050 375 / 475 100 / 475 Other: Number of Unmeasured Voids 0 Number of Bowel Movements 1 Weight 114.759 kg Patient Weight 05/07/25 23:59 Weight 114.759 kg Laboratory Results - last 24 hr 05/06/25 09:53: WBC 7.5, RBC 4.02 L, Hgb 10.2 L, Hct 33.6 L, MCV 83.6, MCH 25.4 L, MCHC 30.4 L, RDW 19.2 H, Plt Count 150, MPV 10.8 H, Neut % (Auto) 77.6, Lymph % (Auto) 13.9, [place] % (Auto) 5.6, Eos % (Auto) 1.7, Baso % (Auto) 0.5, Neut # (Auto) 5.8, Lymph # (Auto) 1.0, [place] # (Auto) 0.4, Eos # (Auto) 0.1, Baso # (Auto) 0.0, Sodium 137, Potassium 4.5, Chloride 106, Carbon Dioxide 23, Anion Gap 12.5, BUN 27 H, Creatinine 1.80 H, Estimated Creat Clear 54, Estimated GFR 37 L, Est GFR ( Amer) 44 L, Glucose 131 H, Calcium 9.1, Magnesium 1.8, Total Bilirubin 1.3, AST 34, ALT 22, Alkaline Phosphatase 111, Total Protein 6.5, Albumin 3.7, Globulin 2.8, Albumin/Globulin Ratio 1.3 I & O for Labs for Last 24 Hours: Intake & Output 05/04/25 05/05/25 05/06/25 05/07/25 23:59 23:59 23:59 23:59 Intake Total 270 / 390 120 / 120 Output Total 850 / 1050 475 / 475 Balance -580 / -660 -355 / -355 Weight 112.627 kg 114.759 kg Constitutional: Present no acute distress and obese Head: Present atraumatic Neck: Present normal inspection Respiratory: Present CTA bilaterally, normal respiratory effort and symmetric chest movement Cardiac: Present Reg Rate and Rhythm GI: Present soft and normal bowel sounds; Absent distention Rectal (male): Present deferred Comment:: Bilateral nephrostomy tubes in place. Urostomy, nonworking. Comment:: Right hip tenderness Skin: Present dry Comment:: Scattered bruising, skin tears. Neuro: Present Weakness Assessment and Plan *Assessment and plan (1) Femoral neck fracture: Status: Acute Qualifiers: Encounter type: initial encounter Fracture type: closed Laterality: right Qualified Code(s): S72.001A - Fracture of unspecified part of neck of right femur, initial encounter for closed fracture Category: Medical Code(s): S72.009A - Fracture of unspecified part of neck of unspecified femur, initial encounter for closed fracture (2) Acute right hip pain: Status: Acute Category: Medical Code(s): M25.551 - Pain in right hip (3) CKD (chronic kidney disease), stage IV: Status: Acute Category: Medical Code(s): N18.4 - Chronic kidney disease, stage 4 (severe) (4) History of insertion of nephrostomy tube: Status: Acute Category: Surgical Code(s): Z98.890 - Other specified postprocedural states (5) Hx of bladder cancer: Status: Acute Category: Medical Code(s): Z85.51 - Personal history of malignant neoplasm of bladder (6) H/O total cystectomy: Status: Acute Category: Surgical Code(s): Z90.6 - Acquired absence of other parts of urinary tract (7) Dementia: Status: Chronic Category: Medical Code(s): F03.90 - Unspecified dementia, unspecified severity, without behavioral disturbance, psychotic disturbance, mood disturbance, and anxiety (8) Acute UTI: Status: Acute Category: Medical Code(s): N39.0 - Urinary tract infection, site not specified Plan Mr. Anand is a 79-year-old male with history of dementia, bladder cancer status post cystectomy, bilateral nephrostomy tubes and recurrent UTIs. Recently admitted to hospice. Got up this morning at home and fell breaking his right hip. Presented to the ER because of pain. Discussed case with ER physician, request admission for surgical eval and definitive management of fracture. States family is interested in palliative surgery to secure fracture and ease pain. Orthopedics consulted. Problems addressed as follows: #Right hip pain #Right femoral neck fracture #Frequent falls ?CT of pelvis shows right femoral neck fracture, nondisplaced. - Orthopedics consulted, discussed case, patient has elevated risk for surgery given his CKD 4, limited mobility. Family would like to proceed with palliative procedure however to anchor fracture and relieve pain. Orthopedics will plan to attempt pending to secure fracture. Discussed risks of infection/infected hardware given patient's recurrent urinary tract/kidney infections. Family states understanding. Continuing antibiotics at this time with Zyvox 600 mg twice daily and Levaquin 750 mg every 48 hours (renally dosed). - Continue hydrocodone 5 mg as needed every 4 hours for moderate to severe pain. Morphine 4 mg IV every 4 hours for severe pain. Monitor for toxicity. #CKD, stage IV ?Caution with nephrotoxins. At baseline with BUN 27, creatinine 1.8. #Hypertension ?Will hold metoprolol succinate at this time pending surgery. Resume after procedure continue Seroquel 50 mg nightly for sleep aid along with melatonin 5 mg nightly. Continue donepezil 10 mg nightly for dementia #History of bladder cancer status post resection of bladder and creation of urostomy #Bilateral nephrostomy tubes #Recurrent kidney infection - Obtaining records from [facility] to evaluate microbiology/culture results. Was placed on Zyvox and Levaquin on 04/27. Will continue at this time due to risk for infection of hardware if patient becomes septic again. Continue Zyvox 600 mg twice daily and Levaquin 750 mg every 48 hours renally dosed DNR/DNI?after discussion with spouse (POA) this morning Regular diet, n.p.o. at midnight Lovenox 40 mg subcu once, transition aspirin after surgery Further goals of care discussion and consideration for resuming hospice after surgery versus transitioning to rehab. Therapy to evaluate after hip surgery.
--- NOTE | 2025-05-07 11:14 | EXP.ANES.CKL ---
[facility] Disclaimer: The information contained in this section may have been updated after the patient was seen, as this information can be updated by other users. Medical History (Updated 05/07/25 @ 10:35 by Kate Sellers APRN) Skin cancer Diabetes mellitus type 2, controlled Bladder cancer Dementia Surgical History (Updated 05/06/25 @ 21:06 by Darrell Kovacs MD) History of urostomy Family History Mother Dementia Father Dementia Social History Smoking Status: Unknown if ever smoked years smoked: 30 smoking status stop date: 30 years ago alcohol intake: never substance use type: denies use current occupational status: unemployed and retired Travel in the last 8 weeks?: None [facility] Anesthesia Checklist Patient Identification Patient Identification: Arm Band Structural Data Admitted From: Inpatient Planned Operative Procedure/s: Cannulated Screw Fixation Right Femoral Neck Consent for Planned Operative Procedure(s) Verified: Yes Verified Documents: Surgical Consent and History and Physical NPO Status Verified Time NPO: 00:00 Additional verifications Anesthesia Reactions: No Airway Assessment Mallampati Score:: Class II C-Spine Mobility Assessed: Yes TMJ Mobility Assessed: Yes Dentition: Good Dentition Neurological Assessment Level of Consciousness: Awake, Alert and Appropriate Anesthesia Plan Anesthesia Risk discussed: Yes Anesthesia Plan: Verified ASA Class: III Anesthesia Type: MAC w/Spinal Preoperative Comments Pre-Operative Comments: Preoperative history obtained from spouse who is at bedside. Pt recently admitted to hospice care. Discussed risks/benefits of SAB vs GA and decision made by myself and spouse to proceed with spinal with MAC anesthesia. Risks/benefits explained at length. Spouse verbalized understanding
--- NOTE | 2025-05-07 13:56 | XR_ITS ---
FINAL REPORT CLINICAL HISTORY: RIGHT HIP PINNING IN OR 35.24 mgy 1.25 ft FINDINGS: FLUOROSCOPY LESS THAN 1 HOUR HISTORY: Fluoroscopy guidance. FINDINGS: Fluoroscopic guidance was provided for right hip pinning in the OR. Two spot films were obtained. A total of 1.25 minutes of fluoroscopy time were used. DAP: 35.24 mGy IMPRESSION: As above. Reviewed, Interpreted and Dictated by Abdifatah Hunt MD Transcribed by Shani Ray Authenticated and [facility]
--- NOTE | 2025-05-07 14:13 | EXP.OP.NOTE ---
Date of procedure: 05/07/25 Pre-op Diagnosis:: Right femoral neck fracture Post-op Diagnosis:: Same Procedure performed:: Percutaneous skeletal fixation right femoral neck fracture Surgeon:: Wally Banks DO Facilities Maintenance Worker(s):: Fredis SAINZ BRANCH SERVICE SPECIALIST:: Darrell Yepez Anesthesia: GETA Estimated blood loss (mL): 0 Operative findings:: Nondisplaced femoral neck fracture, impacted Operative note:: Patient identified preoperatively. Right hip marked with a yes and my initials. Taken to operative suite. Placed on his left side none fractured hip and spinal anesthesia was administered. Then placed on the fracture table. The operative leg which was the right side was placed in line traction with no traction placed on the fracture table the left leg was placed in the semilithotomy position out of the way of x-ray. X-ray was brought into identify and confirm the nondisplaced impacted nature of the femoral neck fracture. This was confirmed. Right hip was then prepped and draped in normal sterile fashion. Once prepped and draped final operative timeout performed to identify proper patient procedure and extremity. Everyone involved in the case agreed. There were no counter indications to beginning. He did receive preoperative antibiotics. X-ray was brought in to find proper trajectory of guidewires for cannulated screws to the right femur the most distal guidewire was utilized first for a starting point above the lesser trochanter in the proper trajectory in the middle of the neck this was confirmed both on the AP and lateral views once the inferior guidewire was placed the multihole guide was utilized for placement of 2 screws superior 1 anterior and 1 posterior to the initial screw. Once the guidewires for these were placed they were checked on the AP and lateral views to be the proper depth and measured the cannulated drill guide was utilized to drill all 3 holes there were measured to size 95 and 2 size 100s the screws were then placed with a short threaded 6.5 mm cannulated screws viewed on the AP and lateral views to be proper depth and length. Guidewires were removed final x-rays taken AP and lateral view show good screw fixation femoral neck fracture poke holes in the skin closed with hilda sterile dressing placed patient waken anesthesia taken recovery stable condition. Condition: stable Disposition: PACU Complications:: None apparent
--- NOTE | 2025-05-07 14:23 | EXP.ANES.I ---
[facility] Anesthesia Record Part I Anesthesia Record I Intake, IV Amount: 1,100 Hydration: Adequate Estimated blood loss (mL): 10 Urine output (mL): 0 Blood Products used (#): none Blood Pressure: 138/68 SaO2: 100 Pulse Rate: 70 Airway Patency: Patent Respiratory Rate: 14 Temperature: 97.3 F Patient is:: Drowsy and Stable Stable to PACU at:: 14:00
[2025-05-07] MEDS: LEVOFLOXACIN/D5W 750 MG/150 ML 750 MG/150 ML PIGGYBACK 100 MG IV (16:09)
[2025-05-07 17:58] LABS: Hematocrit 29.5 % (42.0-52.0); Hemoglobin 9.1 g/dL (14.1-18.0); Immature Granulocytes % 0.5 %; Mean Corpuscular HGB Conc 30.8 g/dL (31.8-35.4); Mean Corpuscular Hemoglobin 26.0 pg (27.0-31.2); Mean Corpuscular Volume 84.3 fl (80-94); Nucleated Red Blood Cells % 0 %; Platelet Count 68 K/mm3 (142-424); Red Blood Count 3.50 M/mm3 (4.60-6.20); Red Cell Distribution Width-SD 59.0 fL; White Blood Count 8.3 K/mm3 (4.8-10.8)
--- NOTE | 2025-05-07 18:06 | PC.NURSE ---
Mr. Anand is AOx4. He had surgery on his right hip were 3 screws were placed. The incision was covered by the surgeon with an ABD pad and tape. He has B/L nephrostomy tubes (due to bladder cancer) that had 250mL of clear/yellow drainage today. He has not complained of any pain and has not received any pain medication today. Pt is fatigue and has slept most of the day. He did wake up to eat lunch. He is a possible discharge tomorrow with hospice. He did not receive his Lovenox injection due to surgery. Medication was administered per JAN. Bed alarm on and call light within reach
[2025-05-07 18:16] LABS: INR 1.04 (0.9-1.1); Prothrombin Time 11.5 seconds (10.1-12.5)
[2025-05-07 18:32] LABS: Alanine Aminotransferase 19 U/L (12-78); Albumin Level 3.0 g/dl (3.5-5.0); Albumin/Globulin Ratio 1.4 (1.1-1.8); Alkaline Phosphatase 105 U/L (38-126); Anion Gap 12.5 mEq/L (5-15); Aspartate Amino Transferase 22 U/L (17-59); Bilirubin,Total 0.8 mg/dl (0.2-1.3); Blood Urea Nitrogen 26 mg/dl (9-20); Calcium 8.1 mg/dl (8.4-10.2); Carbon Dioxide 21 mmol/L (22.0-30.0); Chloride 106 mmol/L (98-107); Creatinine Clearance Estimated 56 mL/min (50-200); Creatinine,Serum 1.80 mg/dl (0.66-1.25); Estimated Glomerular Filt Rate 37 ml/min (>60); GFR (African American) 44 ML/MIN (>60); Globulin 2.2 g/dL (1.3-3.2); Glucose 132 mg/dl (74-100); Magnesium 1.7 mg/dl (1.6-2.3); Potassium 4.5 mmoL/L (3.5-5.1); Sodium 135 mmol/L (136-145); Total Protein,Serum 5.2 g/dl (6.3-8.2)
[2025-05-07] MEDS: PANTOPRAZOLE 40MG TABLET 40 MG PO (20:06)
[2025-05-07] MEDS: QUETIAPINE 25MG TABLET 50 MG PO (20:06)
[2025-05-07] MEDS: MELATONIN 5MG TABLET 5 MG PO (20:06)
[2025-05-07] MEDS: MORPHINE 4MG/ML SYRINGE 4 MG IV (21:06)
[2025-05-08] VITALS: BP 169/79; PULSE 99; RESP 14; TEMP 36.4; O2SAT 97
--- NOTE | 2025-05-08 00:30 | PC.NURSE ---
patient woke up at beginning of shift very anxious and agitated. attempted to climb out of bed. yelling in pain. medicated per mar and is now sleeping. no complaints at this time. is at bedside. encouraged them to ring out as needed. bed alarm on
[2025-05-08] MEDS: MORPHINE 4MG/ML SYRINGE 4 MG IV ×2 (01:57→07:57)
[2025-05-08 04:00] VITALS: BP 142/79; PULSE 98; RESP 18; TEMP 36.4; O2SAT 98; BMI 31.8
--- NOTE | 2025-05-08 06:57 | PC.NURSE ---
Patient table is cleaned and lines /trash was taken out of room
[2025-05-08] MEDS: LINEZOLID 600 MG TABLET PO (07:59)
[2025-05-08 08:00] VITALS: BP 130/58; PULSE 86; RESP 18; TEMP 37.4; O2SAT 97
--- NOTE | 2025-05-08 08:37 | HMH.PTEV ---
Physical Therapy Evaluation Rehab PT IP Evaluation Start: 05/06/25 15:53 Freq: .once Status: Active Protocol: Document 05/08/25 08:28 MATHEUS (Rec: 05/08/25 08:36 MATHEUS [id number]) Subjective/History History History Per H&P: 79-year-old male with complex past medical history including history of bladder cancer status post resection of bladder. Has bilateral nephrostomy tubes due to scarring and malfunction of his urostomy. Having recurring kidney infections. Worsening dementia . Progressive decline in functionality. Recently admitted to hospice a week ago due to his decline in functional limitations. Presented today to the ER after getting up at home and falling with production of right hip pain. On presentation, patient is alert to self but disoriented to situation. Knows he fell. Complains of some right hip pain. Workup in the ER with imaging showing right femoral neck fracture. Kidney function at baseline BUN 27, creatinine 1.8. Orthopedics consulted, amenable to surgery if admitted to medicine. I agreed to admit for further care. On arrival to the floor, patient appears comfortable. Is repetitive with his answers. Repeats multiple times over the course of interview that he made a mistake trying to get up. Does not seem to recall that he has made the statement multiple times. Oriented to self only. Afebrile. Hemodynamically stable. On room air. Subjective Subjective PLOF: Pt was ambulatory using a RW prior to first hospital admission months ago. Pt has been since requiring assistance with all mobility and has reported 4 falls since being home. HOME: Lives with his in a single-story home with 1 [address]INA. Owns a hospital bed, w/c, and mechanical lift. Available assistance: , family members, and hospice staff. New diagnosis of No cancer in past 12 months? [facility] How much help from another person do you currently need... Turning from your A lot back to your side while in a flat bed without using bedrails? Moving from lying on A lot back to sitting on the side of a flat bed without using bedrails? Moving to and from a A lot bed to a chair ( including a wheelchair)? Standing up from a A lot chair using your arms? (e.g., wheelchair, bedside chair) Walking in hospital Total room? Climbing 3-5 steps Total with a railing? Mobility Score 10 Mobility Level Quiles [place] Mobility 4 Move to chair/commode Mobility Calculator Rehab PT IP Eval Objective Appearance Patient Behavior Appropriate,Cooperative Patient Orientation Person Difficulty following none instructions Speech Pattern Clear Ambulation Patient Able to No Ambulate Balance Ability to Arise Unable Sitting Balance Leans or slides in chair Transfers Bed Transfer Ability Maximum x 2 (75% assist) Rehab PT IP prob,goals,plan Problems Date of Evaluation: 05/08/25 PT IP Problems Bed Mobility,Transfers,Gait,Balance,Self care,Safety Rehab Potential Rehab Potential Fair Plan PT Intervention Plan Bed Mobility,Transfers,Gait,Balance,Self care,Safety, Therapeutic Exercise Other Intervention 1-2 times Plan PT Plan Frequency Daily Duration LOS Discharge Goals Bed Transfer Ability Maximum x 1 (75% assist) Sit to Stand Chair Maximum x 2 (75% assist) Transfer Ability Discharge Plan PT Discharge Plan Pt presents below baseline in mobility s/p R femur fracture repair. Pt was primarily limited by pain with mobility. PT recommending inpatient rehabilitation placement upon d/c from [facility] to address deficits. However, if family declines placement, pt does have hospice set up and would be safe to d/c home with 24/7 care. Pt would benefit from skilled acute care PT while at [facility] to address deficits and prevent further functional decline. Eval Complexity Eval Charge Codes 74659 - Moderate Complexity PHYSICIAN CERTIFICATION: I certify the specified therapy services for Ty Anand are required, authorized, and reviewed every 30 days.
--- NOTE | 2025-05-08 10:09 | HMH.OTEV ---
OT Inpatient Evaluation Rehab OT IP Evaluation Start: 05/06/25 15:53 Freq: ONCE Status: Active Protocol: Document 05/08/25 10:00 KAITY (Rec: 05/08/25 10:09 KAITY [id number]) Rehab OT IP Assessment Subjective History 79-year-old male with complex past medical history including history of bladder cancer status post resection of bladder. Has bilateral nephrostomy tubes due to scarring and malfunction of his urostomy. Having recurring kidney infections. Worsening dementia . Progressive decline in functionality. Recently admitted to hospice a week ago due to his decline in functional limitations. Presented today to the ER after getting up at home and falling with production of right hip pain. On presentation, patient is alert to self but disoriented to situation. Knows he fell. Complains of some right hip pain. Workup in the ER with imaging showing right femoral neck fracture. Kidney function at baseline BUN 27, creatinine 1.8. Orthopedics consulted, amenable to surgery if admitted to medicine. I agreed to admit for further care. On arrival to the floor, patient appears comfortable. Is repetitive with his answers. Repeats multiple times over the course of interview that he made a mistake trying to get up. Does not seem to recall that he has made the statement multiple times. Oriented to self only. Afebrile. Hemodynamically stable. On room air FAll resulted in Percutaneous skeletal fixation right femoral neck fracture. Subjective I can't stand. in the room during initial OT evaluation. verbalize she is his primary caregiver along with assistance from hospice. Patient lives with . At baseline patient is a yves lift with needing dependent care of all ADLs. Patient required Max A x2 to complete bed mobility from supine->sit @ EOB. Patient sat up @ EOB for ~3-4 mins with Max A x2 support. Assisted patient from EOB-> supine with needing Max A X2. Objective Patient Orientation Person,Name Right Upper WFL Extremity Gross ROM Left Upper Extremity WFL Gross ROM Bed Mobility bed mobility - supine/sit Assist Level Maximum x 2 (75% assist) Rehab OT IP prob,goals,plan Problems Date of Evaluation: 05/08/25 OT IP Problems Bed Mobility,Balance,Self care Rehab Potential Rehab Potential Good Equipment Needs Assistive Devices None / NA Plan OT intervention Plan Bed Mobility,Balance,Self care,Safety,Therapeutic Exercise OT Plan Frequency Daily Duration LOS Discharge Goals Bed Mobility Ability Assistance x1 Discharge Plan OT Discharge Plan Family request patient to return home with hospice care . Patient will continue to be seen by OT IP services til medical d/c. Patient will benefit from OT skilled services with focus on endurance, sitting balance/ tolerance and UE strengthening to assist with bed mobility. Eval Complexity Eval Charge Codes 16991 - Low Complexity PHYSICIAN CERTIFICATION: I certify the specified therapy services for Ty Vargas Cheng are required, authorized, and reviewed every 30 days.
--- NOTE | 2025-05-08 10:17 | P.PNANES_ITS ---
[facility] Anesthesia Record Part II Anesthesia Record Part II Discharge Time: 14:30 Destination: Surgical Day Care (OP Surgery) PACU nurse assessment reviewed?: Yes Patient Condition:: Good Anesthesia Complications:: None Swallowing reflex intact?: Yes Airway Patency: Patent Cyanosis?: No Blood Pressure: 138/59 SaO2: 98 Respiratory Rate: 16 Pulse Rate: 70 Temperature: 97.9 F Mental Status: Alert & Oriented Pain level:: 0 Nausea and/or vomitting:: None Intake, IV Amount: 0 Hydration: Adequate
[2025-05-08 10:18] VITALS: BP 138/59; PULSE 70; RESP 16; TEMP 36.6; O2SAT 98
--- NOTE | 2025-05-08 10:52 | CARE MANAGER ---
Current Medications Hydrocodone Bitart/Acetaminophen (Hydrocodone/Apap 5/325 Mg Tablet) 1 tab PO Q4HP PRN PRN Reason: Mild to Moderate Pain (1-6) Stop: 06/05/25 13:40 Last Admin: 05/07/25 20:06 Dose: 1 tab Donepezil HCl (Donepezil 10mg Tab) 10 mg PO [facility] Stop: 06/06/25 20:59 Last Admin: 05/07/25 20:07 Dose: 10 mg Levofloxacin/Dextrose (Levofloxacin 750mg/150ml Premix) 750 mg in 150 mls @ 100 mls/hr IV 1100 [facility] Stop: 05/16/25 12:59 Last Admin: 05/07/25 16:09 Dose: 100 mls/hr Vital Signs Pulse Rate 63 05/06/25 09:46 Respiratory Rate 16 05/06/25 09:46 Blood Pressure 147/81 H 05/06/25 09:46 02 Sat by Pulse Oximetry 100 05/06/25 09:46 Oxygen Delivery Method Room Air 05/06/25 09:46 Temperature 99.4 F 05/08/25 08:00 Pulse Rate 86 05/08/25 08:00 Respiratory Rate 16 05/08/25 10:18 Blood Pressure 130/58 L 05/08/25 08:00 02 Sat by Pulse Oximetry 97 05/08/25 08:00 Oxygen Delivery Method Room Air 05/08/25 09:52 Oxygen Flow Rate (LPM) 1 05/08/25 04:00 Linezolid (Linezolid 600 Mg Tablet) 600 mg PO BID [facility] Stop: 05/16/25 20:59 Last Admin: 05/08/25 07:59 Dose: 600 mg Melatonin (Melatonin 5mg Tablet) 5 mg PO [facility] Stop: 06/05/25 20:59 Last Admin: 05/07/25 20:06 Dose: 5 mg Morphine Sulfate (Morphine 4mg/Ml Syringe) 4 mg IV Q4HP PRN PRN Reason: Severe Pain (7-10) Stop: 06/05/25 13:46 Last Admin: 05/08/25 07:57 Dose: 4 mg Ondansetron HCl (Ondansetron 4mg/2ml Vial) 4 mg IV Q8HP PRN PRN Reason: Nausea Stop: 06/05/25 13:40 Laboratory Results - last 24 hr 05/07/25 17:42: WBC 8.3, RBC 3.50 L, Hgb 9.1 L, Hct 29.5 L, MCV 84.3, MCH 26.0 L, MCHC 30.8 L, RDW 19.2 H, Plt Count 68 L D, MPV 10.9 H, Neut % (Auto) 82.2 H, Lymph % (Auto) 8.7 L, [place] % (Auto) 5.2, Eos % (Auto) 3.0, Baso % (Auto) 0.4, Neut # (Auto) 6.9, Lymph # (Auto) 0.7, [place] # (Auto) 0.4, Eos # (Auto) 0.3, Baso # (Auto) 0.0, PT 11.5, INR 1.04, Sodium 135 L, Potassium 4.5, Chloride 106, Carbon Dioxide 21 L, Anion Gap 12.5, BUN 26 H, Creatinine 1.80 H, Estimated Creat Clear 56, Estimated GFR 37 L, Est GFR ( Amer) 44 L, Glucose 132 H, Calcium 8.1 L, Magnesium 1.7, Total Bilirubin 0.8, AST 22 D, ALT 19, Alkaline Phosphatase 105, Total Protein 5.2 L, Albumin 3.0 L D, Globulin 2.2, Albumin/Globulin Ratio 1.4 Pantoprazole Sodium (Pantoprazole 40mg Tablet) 40 mg PO [facility] Stop: 06/05/25 20:59 Last Admin: 05/07/25 20:06 Dose: 40 mg Polyethylene Glycol (Polyethylene Glycol 3350 17 Gm Packet) 17 gm PO DAILYP PRN PRN Reason: CONSTIPATION Stop: 06/06/25 07:16 Quetiapine Fumarate (Quetiapine 25mg Tablet) 50 mg PO OLU Stop: 06/06/25 20:59 Last Admin: 05/07/25 20:06 Dose: 50 mg
[2025-05-08 10:59] LABS: POC Glucose,Bedside 130 (70-110)
--- NOTE | 2025-05-08 11:22 | P.DS_ITS ---
<Statement entered by Darrell Kovacs MD - 05/08/25 15:51> Rounded on patient after nurse practitioner. Personally examined and interviewed patient. Agree with exam findings and care plan as documented. General Admission date:: 05/06/25 Discharge date: 05/08/25 HPI HPI HPI: 79-year-old male with complex past medical history including history of bladder cancer status post resection of bladder. Has bilateral nephrostomy tubes due to scarring and malfunction of his urostomy. Having recurring kidney infections. Worsening dementia. Progressive decline in functionality. Recently admitted to hospice a week ago due to his decline in functional limitations. Presented today to the ER after getting up at home and falling with production of right hip pain. On presentation, patient is alert to self but disoriented to situation. Knows he fell. Complains of some right hip pain. Workup in the ER with imaging showing right femoral neck fracture. Kidney function at baseline BUN 27, creatinine 1.8. Orthopedics consulted, amenable to surgery if admitted to medicine. I agreed to admit for further care. On arrival to the floor, patient appears comfortable. Is repetitive with his answers. Repeats multiple times over the course of interview that he made a mistake trying to get up. Does not seem to recall that he has made the statement multiple times. Oriented to self only. Afebrile. Hemodynamically stable. On room air. Hospital Course Hospital Course Hospital Course: Mr. Anand is a 78-year-old male who was originally admitted to the hospital after a fall and a nondisplaced right hip fracture. He has a primary history of dementia, bladder cancer post cystectomy with ilial conduit and bilateral nephrostomy tubes, chronic kidney disease, diabetes mellitus, frequent UTIs, gout, hypertension, hyperlipidemia. He was recently placed on hospice care due to progressing bladder cancer and frequent urinary tract infections/bacteremia. Patient underwent percutaneous skeletal fixation of his right femoral neck fracture yesterday with Dr. Banks. Patient was unwell overnight complains of moderate pain in the right hip and chronic pain in low back. The patient and his family have made the decision to return back to home with hospice care. Hospice has been contacted. Patient stable to discharge home today. #History of bladder cancer #Bilateral nephrostomy tube #Ileal conduit ?Patient prior to admission was on Zyvox and Levaquin p.o. for urinary tract infection/bacteremia. Patient finished antibiotics during hospital admission. Close monitoring in the outpatient setting. #Right femoral neck fixation ?Patient doing well from procedure, will need hilda taken out in approximately 1 week. Dressing is clean dry and intact. Patient sent home on [place] 5/325 mg every 4 hours as needed for pain. Discussed with patient and family further pain management could be done with the hospice team. #Dementia ? Continue donepezil 10 mg at bedtime for dementia. Continue Seroquel 50 mg and melatonin 5 mg nightly for sleep. #Hypertension #Hyperlipidemia ?Continue metoprolol 50 mg daily and atorvastatin 20 mg at bedtime. #GERD ?Resume omeprazole 40 mg daily. Total time spent on discharge 32 minutes in counseling, documentation, chart review, and direct care with patient. Exam Data for Last 24 hours Vital signs and Labs for Last 24 Hours: Temp Pulse Resp BP Pulse Ox O2 Del Method O2 Flow Rate 99.4 F 86 16 130/58 L 97 Room Air 1 05/08/25 08:00 05/08/25 08:00 05/08/25 10:18 05/08/25 08:00 05/08/25 08:00 05/08/25 09:52 05/08/25 04:00 Laboratory Results - last 24 hr 05/07/25 17:42: WBC 8.3, RBC 3.50 L, Hgb 9.1 L, Hct 29.5 L, MCV 84.3, MCH 26.0 L , MCHC 30.8 L, RDW 19.2 H, Plt Count 68 L D, MPV 10.9 H, Neut % (Auto) 82.2 H, Lymph % (Auto) 8.7 L, Nance % (Auto) 5.2, Eos % (Auto) 3.0, Baso % (Auto) 0.4, Neut # (Auto) 6.9, Lymph # (Auto) 0.7, Nance # (Auto) 0.4, Eos # (Auto) 0.3, Baso # (Auto) 0.0, PT 11.5, INR 1.04, Sodium 135 L, Potassium 4.5, Chloride 106, Carbon Dioxide 21 L, Anion Gap 12.5, BUN 26 H, Creatinine 1.80 H, Estimated Creat Clear 56, Estimated GFR 37 L, Est GFR ( Amer) 44 L, Glucose 132 H, Calcium 8.1 L, Magnesium 1.7, Total Bilirubin 0.8, AST 22 D, ALT 19, Alkaline Phosphatase 105, Total Protein 5.2 L, Albumin 3.0 L D, Globulin 2.2, Albumin/Globulin Ratio 1.4 05/08/25 10:53: POC Glucose 130 H I & O for Last 24 hours: Intake & Output 05/05/25 05/06/25 05/07/25 05/08/25 23:59 23:59 23:59 23:59 Intake Total 270 / 390 1640 / 1640 60 / 60 Output Total 850 / 1050 925 / 1200 650 / 650 Balance -580 / -660 715 / 440 -590 / -590 Weight 112.627 kg 114.759 kg 116.148 kg Constitutional Constitutional: no acute distress, obese and chronically ill appearing *Routine HEENT Exam Head: Present normocephalic Eye: Present EOMI and PERRL ENT: Present mucous membranes moist *Routine Neck Exam Neck: Present supple; Absent lymphadenopathy *Routine Respiratory Exam Respiratory: Present CTA bilaterally; Absent rhonchi, wheezes or crackles *Routine Cardiovascular Exam Cardiovascular: Present RRR *Routine Abdominal Exam Abdominal: Present soft and normoactive bowel sounds; Absent tenderness Comments: Ileal conduit in right lower abdomen, nephrostomy tube left/right flank. Both draining light yellow urine. *Routine Rectal Exam Patient deferred: visual exam *Routine Exam Patient deferred: penile exam *Routine Extremities Exam Extremities: Absent cyanosis, clubbing or edema *Routine Skin Exam Skin: Present warm; Absent rash *Routine Neurological Exam Neurological: Present alert, oriented X3 and moving all extremities; Absent altered mental status Results Data Completed and Pending Labs on day of discharge: Labs from last 24 hours 05/08/25 05/07/25 10:53 17:42 WBC 8.3 RBC 3.50 L Hgb 9.1 L Hct 29.5 L MCV 84.3 MCH 26.0 L MCHC 30.8 L RDW 19.2 H Plt Count 68 L D MPV 10.9 H Neut % (Auto) 82.2 H Lymph % (Auto) 8.7 L Nance % (Auto) 5.2 Eos % (Auto) 3.0 Baso % (Auto) 0.4 Neut # (Auto) 6.9 Lymph # (Auto) 0.7 Nance # (Auto) 0.4 Eos # (Auto) 0.3 Baso # (Auto) 0.0 PT 11.5 INR 1.04 Sodium 135 L Potassium 4.5 Chloride 106 Carbon Dioxide 21 L Anion Gap 12.5 BUN 26 H Creatinine 1.80 H Estimated Creat Clear 56 Estimated GFR 37 L Est GFR ( Amer) 44 L Glucose 132 H POC Glucose 130 H Calcium 8.1 L Magnesium 1.7 Total Bilirubin 0.8 AST 22 D ALT 19 Alkaline Phosphatase 105 Total Protein 5.2 L Albumin 3.0 L D Globulin 2.2 Albumin/Globulin Ratio 1.4 DS: Diagnosis Discharge Diagnosis (1) Femoral neck fracture: Status: Acute Code(s): S72.009A - Fracture of unspecified part of neck of unspecified femur, initial encounter for closed fracture Qualifiers: Encounter type: initial encounter Fracture type: closed Laterality: right Qualified Code(s): S72.001A - Fracture of unspecified part of neck of right femur, initial encounter for closed fracture (2) Acute right hip pain: Status: Acute Code(s): M25.551 - Pain in right hip (3) CKD (chronic kidney disease), stage IV: Status: Acute Code(s): N18.4 - Chronic kidney disease, stage 4 (severe) (4) History of insertion of nephrostomy tube: Status: Acute Code(s): Z98.890 - Other specified postprocedural states (5) Hx of bladder cancer: Status: Acute Code(s): Z85.51 - Personal history of malignant neoplasm of bladder (6) H/O total cystectomy: Status: Acute Code(s): Z90.6 - Acquired absence of other parts of urinary tract (7) Dementia: Status: Chronic Code(s): F03.90 - Unspecified dementia, unspecified severity, without behavioral disturbance, psychotic disturbance, mood disturbance, and anxiety (8) Acute UTI: Status: Acute Code(s): N39.0 - Urinary tract infection, site not specified Meds Home Medications and Allergies Home Medications ?Medication ?Instructions ?Recorded ?Confirmed ?Type allopurinol 100 mg tablet 100 mg PO DAILY 11/29/2311/30 History atorvastatin 20 mg tablet 20 mg PO HS 11/29/23 5 History metoprolol succinate 50 mg 50 mg PO DAILY 11/29/2311/30 History tablet,extended release 24 hr quetiapine 50 mg tablet 50 mg PO HS 11/29/23 5 History diphenoxylate-atropine 2.5 2.5 tab PO QID PRN Diarrhea 05/06/25 05/06/25 History mg-0.025 mg tablet donepezil 5 mg tablet 10 mg PO HS 05/06/25 5 History hydroxyzine HCl 25 mg tablet 25 mg PO HSP PRN Itching 05/06/25 05/07/25 History melatonin 5 mg tablet 5 mg PO HS PRN Sleep 5 05/06/25 History omeprazole 40 mg capsule,delayed 40 mg PO DAILY 05/06/25 History release hydrocodone 5 mg-acetaminophen 325 1 tab PO Q4HP PRN M ild To Moderate 05/08/25 Rx mg tablet Pain (1-6) 3 days #18 tabs New Prescriptions to Start Prescriptions: hydrocodone-acetaminophen Kate Sellers Allergies Allergy/AdvReac Type Severity Reaction Status Date / Time No Known Allergies Allergy Verified 11/28/23 22:20 Discharge Plan Disposition Patient Disposition: Hospice - Home Condition: Fair Discharge Order Discharge Orders: Discharge Order (Routine); Ordered 05/08/25 Ordered By: Kate Sellers Follow up Plan Prescriptions/Medication Reconciliation: New hydrocodone-acetaminophen 5-325 mg Tablet 1 tab PO Q4HP PRN (Reason: Mild To Moderate Pain (1-6)) 3 Days Qty: 18 0RF Continued atorvastatin 20 mg tablet 20 mg PO HS metoprolol succinate 50 mg tablet extended release 24 hr 50 mg PO DAILY Patient Comments: TAKE 1 TABLET BY MOUTH ONCE DAILY allopurinol 100 mg tablet 100 mg PO DAILY quetiapine 50 mg tablet 50 mg PO HS donepezil 5 mg tablet 10 mg PO HS Patient Comments: TAKE 1 TABLET BY MOUTH ONCE DAILY AT NIGHT diphenoxylate-atropine 2.5-0.025 mg tablet 2.5 tab PO QID PRN (Reason: Diarrhea) Patient Comments: TAKE 1 TABLET BY MOUTH FOUR TIMES DAILY NEEDED FOR DIARRHEA omeprazole 40 mg capsule,delayed release(DR/EC) 40 mg PO DAILY Patient Comments: TAKE 1 CAPSULE BY MOUTH ONCE DAILY hydroxyzine HCl 25 mg tablet 25 mg PO HSP PRN (Reason: Itching) Patient Comments: TAKE 1 TABLET BY MOUTH AT BEDTIME NEEDED FOR ITCHING melatonin 5 mg Tablet 5 mg PO HS PRN (Reason: Sleep) Problem Reconciliation Problems Reviewed?: Yes Patient Discharge Instructions ACTIVITY: Continue current activity DIET: continue same diet Patient Instructions: Bladder Cancer Print Language: Cuban Providers Primary Care Provider: Provider,Referral Admit Provider: Darrell Kovacs Attending Provider: Darrell Kovacs
[2025-05-08] MEDS: HYDROCODONE/APAP 5/325 MG TABLET 1 TAB PO (12:00)
== END 2025-05-08 12:59 | disposition hospice, home (50) | DRG 482 ==
LOC: ER 09:49 → 2ND 13:49
PROVIDERS: Nurse Practitioner; Orthopaedic Surgery; Admitting Provider Internal Medicine Adolescent Medicine; Emergency Provider Student in an Organized Health Care Education/Training Program; Visit Provider Internal Medicine Adolescent Medicine
PROC: 0QH634Z Insertion of Internal Fixation Device into Right Upper Femur, Percutaneous Approach (ICD-10-PCS; principal; 2025-05-07 12:00)
DX: S72.001A Fracture of unspecified part of neck of right femur, initial encounter for closed fracture (principal); F03.90 Unspecified dementia, unspecified severity, without behavioral disturbance, psychotic disturbance, mood disturbance, and anxiety; E11.22 Type 2 diabetes mellitus with diabetic chronic kidney disease; M10.9 Gout, unspecified; I12.9 Hypertensive chronic kidney disease with stage 1 through stage 4 chronic kidney disease, or unspecified chronic kidney disease; E78.5 Hyperlipidemia, unspecified; G89.29 Other chronic pain; M54.50 Low back pain, unspecified; K21.9 Gastro-esophageal reflux disease without esophagitis; N18.32 Chronic kidney disease, stage 3b; R29.6 Repeated falls; Y92.009 Unspecified place in unspecified non-institutional (private) residence as the place of occurrence of the external cause; W19.XXXA Unspecified fall, initial encounter; Z66 Do not resuscitate; Z93.6 Other artificial openings of urinary tract status; Z87.440 Personal history of urinary (tract) infections; Z85.51 Personal history of malignant neoplasm of bladder; Z90.6 Acquired absence of other parts of urinary tract; Z79.899 Other long term (current) drug therapy
CPT/HCPCS: 36415; 70450; 71260; 72125; 72128; 72131; 72192; 73080; 73502; 74177; 76000; 80053; 82962; 83735; 85025; 85610; 87086; 93005; 97162; 97165; C1713; J0690; J1650; J1956; J2270; J2371; J2405; J2704; J7030; Q9967